=== PATIENT | male | born 1940 | race Caucasian/White ===

== ENCOUNTER 2022-05-27 02:16 | Inpatient (IN) ==
--- NOTE | 2022-05-27 02:37 | Emergency Department Note ---
Fall HPI General Chief Complaint: Fall Stated Complaint: FALL Time Seen by Provider: 05/27/22 02:18 Source: patient and EMS Mode of arrival: EMS Limitations: other (dementia) History of Present Illness HPI Narrative: Narrative: Patient arrives to ED via EMS after being found down by assisted living staff. Patient does not know what happened he has a history of dementia and does not really provide much information other than stating that he has pain in his back and hip. Does not know if he hit his head. It was an unwitnessed fall. Nursing staff told EMS that patient has not had any fevers, chills diarrhea, vomiting. No other information at this time was able to be obtained from the patient. Related Data Home Medications Medication Instructions Recorded Confirmed lorazepam 0.5 mg tablet 0.5 mg PO TID 05/11/22 05/11/22 meloxicam 15 mg tablet 15 mg PO QDAY 05/11/22 05/11/22 prazosin 1 mg capsule 1 mg PO QHS 05/11/22 05/11/22 sertraline 100 mg tablet 150 mg PO QAM 05/11/22 sm dry eye relief 05/11/22 Previous Rx's Medication Instructions Recorded 4 post cane #1 ea 07/14/16 FWW with seat #1 ea 11/20/18 Handicap Placard #1 ea 06/19/19 artificial tears(hypromellose) 0.3 1 drp ophthalmic (eye) QID PRN dry 04/08/20 % eye drops eyes #30 mL [id number] acid 0.4 See Rx Instructions .Route 06/15/20 mg-lycopene 300 mcg-lutein 250 mcg .COMPLEX #31 tabs tablet (CertaVite Senior) amlodipine 10 mg tablet See Rx Instructions .Route 03/22/21 .COMPLEX #90 tabs divalproex 500 mg tablet,extended 500 mg PO QPM #90 tabs 03/22/21 release 24 hr ferrous sulfate 325 mg (65 mg 325 mg PO QDAY #90 tabs 03/22/21 iron) tablet memantine 5 mg tablet 5 mg PO BID #180 tabs 03/22/21 omeprazole 20 mg capsule,delayed 20 mg PO QAM #90 caps 03/22/21 release phenytoin sodium extended 100 mg See Dose Instructions .Route 03/22/21 capsule .COMPLEX #270 caps ziprasidone HCl 20 mg capsule 20 mg PO BID Dementia/anxiety #180 03/22/21 caps levothyroxine 25 mcg tablet 25 mcg PO QDAY #90 tabs 10/18/21 acetaminophen 325 mg tablet 325 mg PO BID PRN pain #60 tabs 11/30/21 artificial tears(hypromellose) 0.5 2 drp ophthalmic (eye) QID dry 04/06/22 % eye drops eyes #30 mL meloxicam 15 mg tablet 15 mg PO QAM #90 tabs 04/06/22 lorazepam 0.5 mg tablet 0.5 mg PO TID PRN agitation #90 05/09/22 tabs olopatadine 0.1 % eye drops 2 drp ophthalmic (eye) BID #5 mL 05/18/22 Allergies Allergy/AdvReac Type Severity Reaction Status Date / Time No Known Drug Allergies Allergy Verified 05/11/22 13:31 Review of Systems ROS ROS Narrative: Narrative: All systems ED: reviewed and negative except as stated. [facility] Narrative Patient History Narrative: Narrative: Medical/Surgical/Family History All Active Problems (Updated 05/27/22 @ 06:44 by Kirby Ramirez DO) Epilepsy (Chronic) Hyperlipidemia (Chronic) Hypertension, essential (Chronic) Profound developmental delay (Chronic) Balance problems (Acute) Dysphagia (Chronic) Urinary tract infection (Acute) Knee sprain (Acute) Constipation (Acute) Intellectual disability (Acute) Cognitive decline (Acute) Alzheimer's dementia with behavioral disturbance (Acute) Fall from ground level (Acute) Laceration (Acute) Conjunctivitis (Acute) Medicare annual wellness visit, subsequent (Acute) Dizziness (Acute) Grief (Acute) Anxiety (Acute) Chest pain (Acute) Grief reaction with prolonged bereavement (Acute) Alzheimer disease (Acute) Dementia (Acute) Irritation of both eyes (Acute) Suicidal ideation (Acute) Acute urinary retention (Acute) History of dementia (Acute) Fracture of hip, left, closed (Acute) Acute urinary retention (Acute) Medical History (Updated 05/27/22 @ 06:44 by Kirby Ramirez DO) Alzheimer disease Chest pain Dysphagia Epilepsy 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 Lund Family History Father Cardiac disease Social History Smoking Status: Never smoker Alcohol Intake Frequency: does not drink Substance Use: does not use Exam Narrative Narrative: Narrative: General Limitations: other (dementia) General appearance: Present alert Head Head: Present atraumatic and normocephalic Eye Eye: Present PERRL and EOMI Neck Neck: Present full ROM; Absent tenderness Chest Chest: Present normal inspection; Absent tenderness Respiratory Respiratory: Present normal lung sounds bilaterally; Absent respiratory distress Cardiovascular Cardiovascular: Present regular rate and normal rhythm Adbominal Abdominal: Present soft; Absent tenderness Extremities Extremities: Present normal capillary refill Expanded Lower Extremity Hip/Pelvis: Present tenderness; Absent full ROM Back Back: Present L-S tenderness Skin Skin: Present warm (WNL) and intact Course Course Course Narrative: Patient was evaluated status post fall after being found down. CT of the head and cervical spine 10 with image reviewed on self no acute findings. CT lumbar spine obtained with image reviewed myself with no acute findings. CT of the pelvis obtained shows a left hip fracture. Case was discussed with orthopedic surgeon who recommend the patient be admitted to the hospitalist service and discussed and should be have with patient's family about surgery versus hospice care as patient does have advanced dementia. Unfortunate we do not have any hospital beds at our facility. Case discussed with hospitalist at [facility] and they have refused to accept patient without having any information from family to determine whether or not they want surgery versus hospice. Inpatient hospice and he can just be discharged back to facility on hospice rather than be transferred over. We have not been able to get a hold of family through the night. On CT which showed that patient has severely distended bladder. Scan of the bladder showed that patient had greater than 1500 mils of urine. Winslow catheter was placed and over 2000 mL of urine was evacuated. Winslow catheter was anchored. UA was unremarkable. Labs show that patient did have leukocytosis but no source of infection identified. Chest x-ray was unremarkable. Patient will be signed out to Dr. Rodriguez to we are able to contact family to determine disposition Consultations Consultation #1: Discussed with orthopedic surgeon, Dr. Castillo, who recommend the patient be admitted to the hospital service. He feels that patient would probably best served by going on hospice but this will have to be a decision made by the family and discussion with hospitalist. Time: 05:01 Consultation #2: Case discussed with hospitalist over at [facility] who has refused transfer until family can be contacted to determine plan of care. He feels that if [facility] is going hospice and there is no need to transfer patient to their facility. Time: 06:35 Vital Signs Vital signs: Vital Signs Temperature 98.2 F 05/27/22 02:17 Pulse Rate 81 05/27/22 02:17 Respiratory Rate 20 05/27/22 02:17 Blood Pressure 172/76 05/27/22 02:17 Pulse Oximetry (%) 100 05/27/22 02:17 Oxygen Delivery Method 05/27/22 02:17 Temperature 98.2 F 05/27/22 02:17 Pulse Rate 70 05/27/22 06:01 Respiratory Rate 20 05/27/22 02:17 Blood Pressure 157/76 05/27/22 06:01 Pulse Oximetry (%) 90 05/27/22 06:01 Oxygen Delivery Method 05/27/22 02:17 MDM MDM Narrative Medical decision making narrative: Narrative: Differential Diagnosis Differential Diagnosis: fall, hip fx, lumbar pain Medical Records Medical records reviewed: Yes I reviewed the patient's medical records. Lab Data Lab results reviewed: Yes I reviewed the patient's lab results. Result diagrams: 05/27/22 02:46 Labs: Lab Results 05/27/22 05/27/22 Range/Units 02:46 04:00 WBC 16.3 H (4.5-11.0) K/mcL RBC 3.62 L (4.63-6.08) M/mcL Hgb 11.1 L (13.7-17.5) g/dL Hct 33.0 L (40.1-51.0) % POC Hct 32.0 L (41-55) MCV 91.2 (80.0-100.0) fL MCH 30.7 (26.0-34.0) pg MCHC 33.6 (31.0-36.0) g/dL RDW 12.6 (11.5-14.5) % Plt Count 176 (140-440) K/mcL MPV 10.3 (8.8-12.5) fL Immature Gran % (Auto) 0.5 (0.0-0.5) % Neut % (Auto) 87.7 H (38.0-78.0) % Lymph % (Auto) 3.3 L (15.5-49.0) % [place] % (Auto) 8.2 (1.0-12.0) % Eos % (Auto) 0.1 (0.0-7.0) % Baso % (Auto) 0.2 (0.0-2.0) % Lymph # (Auto) 0.53 L (1.50-4.80) K/mcL [place] # (Auto) 1.34 H (0.10-0.90) K/mcL Eos # (Auto) 0.01 (0.00-0.70) K/mcL Baso # (Auto) 0.03 (0.00-0.30) K/mcL Immature Gran # 0.08 H (0.00-0.05) K/mcl Absolute Neutrophils 14.28 H (1.80-8.00) K/mcL POC Sodium 141 (133-145) POC Potassium 3.3 (3.3-5.1) POC Chloride 105 (96-108) POC Total CO2 24.0 (22-30) POC BUN 21 H (6-20) POC Creatinine 1.0 (0.6-1.2) POC Glucose 130 H (70-105) POC WB Ioniz Calcium 1.09 L (1.16-1.32) Radiology Data Radiology results reviewed: Yes I reviewed the patient's radiology results. Radiology results narrative: CT of the head and cervical spine obtained with image reviewed myself, I agree with radiologist interpretation CT lumbar spine obtained with image reviewed myself, agree with radiologist interpretation CT of the pelvis obtained with image reviewed myself, agree with radiologist interpretation Core Measures AMI Core Measures Followed: Yes Discharge Plan Patient/Caregiver Discharge Instructions Pt seen by STOCK PITCHER/PA only: No Clinical Impression: Fracture of hip, left, closed, Acute urinary retention Patient Disposition: Still a Patient Condition: Undetermined Follow up with: Daniel Hartman PA-C [Primary Care Provider] - Prescriptions: No Action [id number]-lutein [CertaVite Senior] 0.4-300-250 mg-mcg-mcg tablet See Rx Instructions .ROUTE .COMPLEX Qty: 31 11RF Dose Instruction: TAKE 1 TABLET BY MOUTH DAILY (8AM) Rx Instructions: TAKE 1 TABLET BY MOUTH DAILY (8AM) omeprazole 20 mg capsule,delayed release(DR/EC) 20 mg PO QAM Qty: 90 3RF amlodipine 10 mg tablet See Rx Instructions .ROUTE .COMPLEX Qty: 90 3RF Dose Instruction: TAKE 1 TABLET BY MOUTH DAILY IN THE MORNING (8AM) Rx Instructions: TAKE 1 TABLET BY MOUTH DAILY IN THE MORNING (8AM) divalproex 500 mg tablet extended release 24 hr 500 mg PO QPM Qty: 90 3RF ferrous sulfate 325 mg (65 mg iron) tablet 325 mg PO QDAY Qty: 90 3RF memantine 5 mg tablet 5 mg PO BID Qty: 180 3RF phenytoin sodium extended 100 mg capsule See Dose Instructions .ROUTE .COMPLEX Qty: 270 3RF Dose Instruction: Take 100mg in the morning and 200mg at bedtime Rx Instructions: Take 100mg in the morning and 200mg at bedtime ziprasidone HCl 20 mg capsule 20 mg PO BID Qty: 180 3RF Rx Instructions: give with food (meal/snack) levothyroxine 25 mcg tablet 25 mcg PO QDAY Qty: 90 3RF acetaminophen 325 mg tablet 325 mg PO BID PRN (Reason: pain) Qty: 60 4RF meloxicam 15 mg tablet 15 mg PO QAM Qty: 90 1RF artificial tears(hypromellose) 0.5 % drops 2 drp OPHTHALMIC QID Qty: 30 4RF lorazepam 0.5 mg tablet 0.5 mg PO TID PRN (Reason: agitation) Qty: 90 0RF olopatadine 0.1 % drops 2 drp ophthalmic (eye) BID Qty: 5 5RF Rx Instructions: Instill 2 drops in affected eye twice daily (DME) 4 post cane Qty: 1 0RF Rx Instructions: Use as needed dialy (DME) FWW with seat Qty: 1 0RF Dose Instruction: As directed Rx Instructions: As directed artificial tears(hypromellose) 0.3 % drops 1 drp OPHTHALMIC QID PRN (Reason: dry eyes) Qty: 30 1RF Hold Instructions: Doctor's Order (DME) Handicap Placard Qty: 1 0RF Rx Instructions: As directed meloxicam 15 mg tablet 15 mg PO QDAY prazosin 1 mg capsule 1 mg PO QHS sertraline 100 mg tablet 150 mg PO QAM (DME) sm dry eye relief See Rx Instructions .ROUTE .MEDSUPPLY Rx Instructions: instill 2 drops into the ey four times daily. lorazepam 0.5 mg tablet 0.5 mg PO TID
[2022-05-27 03:09] LABS: Basophils # (Auto) 0.03 K/mcL (0.00-0.30); Basophils % (Auto) 0.2 % (0.0-2.0); Eosinophils # (Auto) 0.01 K/mcL (0.00-0.70); Eosinophils % (Auto) 0.1 % (0.0-7.0); Hemoglobin 11.1 g/dL (13.7-17.5); Lymphocytes # (Auto) 0.53 K/mcL (1.50-4.80); Lymphocytes % (Auto) 3.3 % (15.5-49.0); Mean Cell Volume 91.2 fL (80.0-100.0); Mean Corpuscular HGB Conc 33.6 g/dL (31.0-36.0); Mean Platelet Volume 10.3 fL (8.8-12.5); Monocytes # (Auto) 1.34 K/mcL (0.10-0.90); Monocytes % (Auto) 8.2 % (1.0-12.0); Neutrophils % (Auto) 87.7 % (38.0-78.0); Platelet Count 176 K/mcL (140-440); RBC 3.62 M/mcL (4.63-6.08); Red Cell Distribution Width 12.6 % (11.5-14.5); WBC 16.3 K/mcL (4.5-11.0)
[2022-05-27] MEDS ORDERED: morphine 2 MG/ML VIAL IV ONE (03:33)
--- NOTE | 2022-05-27 03:36 | XRay Report ---
CLINICAL INFORMATION: Trauma COMPARISON: 04/05/2022. TECHNIQUE: Portable FINDINGS: The heart size, mediastinum and pulmonary vessels are unremarkable. The lungs are clear. There are no effusions. The bones and soft tissues are within normal limits. IMPRESSION: Normal chest. Interpreted and Authenticated by: Arpan Lamas 05/27/22
--- NOTE | 2022-05-27 03:36 | Cat Scan Report ---
CLINICAL INFORMATION: Trauma-fall COMPARISON: 04/05/2022 TECHNIQUE: 2.5 mm helical slices were obtained in the skull base to vertex. Following reconstruction, axial reformatted images were reviewed at bone and parenchymal windows. The exam was performed using radiation dose optimization techniques including, but not limited to, automated exposure control, adjustment of the mA and/or kV according to patient size and use of iterative reconstruction technique. FINDINGS: The ventricles, sulci, fissures, and cisterns are enlarged compatible moderate age-related atrophy. There is asymmetric atrophy of the cerebellum with congenital enlargement of the cisterna magna No extra-axial fluid collections are identified. Mild patchy chronic ischemic changes, in the deep cerebral white matter, are expected for age. There is no hemorrhage, mass effect, or edema. Bone windows show no osseous abnormality. IMPRESSION: Moderate cerebral atrophy with moderate/severe cerebellar atrophy-stable. Chronic ischemic changes are age-related also stable. No hemorrhage or other acute posttraumatic change Interpreted and Authenticated by: Arpan Lamas 05/27/22
--- NOTE | 2022-05-27 03:42 | Cat Scan Report ---
CLINICAL INFORMATION: Trauma-fall COMPARISON: None. TECHNIQUE: 0.625 mm helical slices were obtained from the skull base through the superior T2 end plate. Following reconstruction, 2.5 mm sagittal, coronal and axial reformations , with and without disc space angling, were processed. The exam was reviewed at bone and soft tissue windows. The exam was performed using radiation dose optimization techniques including, but not limited to, automated exposure control, adjustment of the mA and/or kV according to patient size and use of iterative reconstruction technique. FINDINGS: Sagittal and coronal reformatted images show the cervical spine is anatomically aligned. There is no fracture or other osseous abnormality. The cervical cord is normal in contour and caliber without focal lesion. 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 There is bilateral TMJ anterior subluxation with severe degeneration At C2-3 mild broad disc spur complex left-sided asymmetry results in mild left IV foraminal narrowing At C3-4 mild broad disc spur complex and facet arthropathy result in mild central canal severe right and mild left IV foraminal narrowing At C4-5 mild broad disc spur complex results in mild bilateral IV foraminal narrowing At C5-6 moderate broad disc spur complex results in moderate left and severe right IV foraminal mild central canal narrowing At C6-7 mild broad disc spur complex results in mild central canal and left IV foraminal narrowing. C7-T1 disc level is normal. IMPRESSION: 1. No fracture or other posttraumatic change. 2. Multilevel degeneration resulting in IV foraminal narrowing. 3. 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 Interpreted and Authenticated by: Arpan Lamas 05/27/22
--- NOTE | 2022-05-27 04:00 | Cat Scan Report ---
CLINICAL INFORMATION: Trauma-fall COMPARISON: None. TECHNIQUE: 0.625 mm helical slices were obtained from the mid L4 through the subtrochanteric regions. Following reconstruction, 2.5 mm sagittal, coronal and axial reformations were processed. The exam was reviewed in bone and soft tissue windows. The exam was performed using radiation dose optimization techniques including, but not limited to, automated exposure control, adjustment of mA and/or kV according to patient size and use of iterative reconstruction technique. FINDINGS: Oblique subcapital fracture of the left hip shows 12 mm of superior displacement femoral neck with respect to the femoral head. There is mild resorption about the fracture lines may be subacute. MALUNIFIED old fracture of the left inferior pubic ramus shows mild deformity. A 3 cm exostosis projecting the posterior ilium is noted in both SI joints are normal in width and alignment without significant degeneration or other arthritic change. There is mild degeneration of both SI joints. Prostate is markedly enlarged with diameter 6 cm. Bladder is massively distended with wall thickening, trabeculations and scattered diverticuli. Chronic bladder outlet obstruction has resulted in severe bilateral hydroureter/hydronephrosis. Visualized small and large bowel are unremarkable. Lateral pericecal appendix is normal. There is no free air, free fluid or adenopathy. Muscle and fascial planes are unremarkable. IMPRESSION: 1. Mildly displaced oblique subcapital fracture of the left hip. This may be subacute. 2. Marked prostate enlargement resulting massive urinary bladder distention and bilateral hydronephrosis/hydroureter. Patient will likely require catheterization. 3. 3 cm exostosis projecting from the posterior right ilium. Interpreted and Authenticated by: Arpan Lamas 05/27/22
[2022-05-27] MEDS ORDERED: KETOROLAC 30 MG/ML VIAL IV ONE (04:01)
[2022-05-27 04:04] LABS: POC Calcium, Ionized 1.09 (1.16-1.32); POC Potassium 3.3 (3.3-5.1)
--- NOTE | 2022-05-27 04:08 | Cat Scan Report ---
CLINICAL INFORMATION: Trauma fall COMPARISON: None. TECHNIQUE: 0.625 mm helical slices were obtained from the mid T12 through mid S2 vertebral bodies. Following reconstruction, 2.5 mm coronal, sagittal, and axial reformations (angle to the disc spaces) were processed. Exam was reviewed at bone and soft tissue windows.The exam was performed using radiation dose optimization techniques including, but not limited to, automated exposure control, adjustment of the mA and/or kV according to patient size and use of iterative reconstruction technique. FINDINGS: The lumbar spine is normal in curvature and alignment. Moderate L1 compression fracture features 10% loss of vertebral height. No extension of posterior elements,thus it appears to be stable. Chronicity unknown. Minimal L2 compression fracture is of indeterminate chronicity. No other osseous abnormalities. The region of the conus medullaris and cauda equina roots are normal. Marked prostatic enlargement (6 cm diameter) with massive distention of urinary bladder with wall thickening and severe bilateral hydronephrosis/hydroureter appreciated. The T11-T12, and T12-L1 disc levels are normal. At L1-2 mild broad disc protrusion mildly impinges the thecal sac At L2-3 mild broad disc protrusion left-sided asymmetry appreciated. At L3-4 mild broad disc protrusion left-sided asymmetry results in mild bilateral IV foraminal narrowing At L4-5, mild broad disc protrusion with left-sided asymmetry facet arthropathy result in mild central canal, moderate bilateral lateral recesses and IV foraminal narrowing. There is slight impingement of the exiting L4 and descending L5 nerve roots At L5-S1 mild broad disc protrusion noted IMPRESSION: 1. Moderate L1 and mild L2 compression fractures are more likely chronic than acute. There is stable. 2. Mild multilevel degeneration 3. Marked prostate enlargement with massive urinary bladder distention and bilateral hydroureter/hydronephrosis. Interpreted and Authenticated by: Arpan Lamas 05/27/22
[2022-05-27] MEDS ORDERED: LORazepam 2 MG/ML VIAL IV ONE ×2 (04:14→09:32)
[2022-05-27] MEDS ORDERED: LORazepam 2 MG/ML VIAL ONE (04:34)
[2022-05-27] MEDS ORDERED: HYDROmorphone 1 MG/ML SYRINGE IV ONE (09:32)
--- NOTE | 2022-05-27 09:50 | XRay Report ---
CLINICAL INFORMATION: Trauma left hip pain COMPARISON: None. FINDINGS: Mildly displaced oblique subcapital fracture left hip appreciated. No angulation deformity. Both hip and SI joints normal in width and alignment without arthritic change. Soft tissues over the fracture site. IMPRESSION: Mildly displaced oblique subcapital fracture left hip Interpreted and Authenticated by: Arpan Lamas 05/27/22
--- NOTE | 2022-05-27 10:34 | Emergency Department Note ---
HPI General Chief complaint: Fall Stated complaint: FALL Time Seen by Provider: 05/27/22 02:18 Source: patient and EMS Mode of arrival: EMS Limitations: other (dementia) History of Present Illness HPI Narrative: Narrative: Related Data Home Medications Medication Instructions Recorded Confirmed lorazepam 0.5 mg tablet 0.5 mg PO TID 05/11/22 05/11/22 meloxicam 15 mg tablet 15 mg PO QDAY 05/11/22 05/11/22 prazosin 1 mg capsule 1 mg PO QHS 05/11/22 05/11/22 sertraline 100 mg tablet 150 mg PO QAM 05/11/22 sm dry eye relief 05/11/22 Previous Rx's Medication Instructions Recorded 4 post cane #1 ea 07/14/16 FWW with seat #1 ea 11/20/18 Handicap Placard #1 ea 06/19/19 artificial tears(hypromellose) 0.3 1 drp ophthalmic (eye) QID PRN dry 04/08/ % eye drops eyes #30 mL cwnyaxke-bdk-xbbpl acid 0.4 See Rx Instructions .Route 06/15/20 mg-lycopene 300 mcg-lutein 250 mcg .COMPLEX #31 tabs tablet (CertaVite Senior) amlodipine 10 mg tablet See Rx Instructions .Route 03/22/21 .COMPLEX #90 tabs divalproex 500 mg tablet,extended 500 mg PO QPM #90 tabs 03/22/21 release 24 hr ferrous sulfate 325 mg (65 mg 325 mg PO QDAY #90 tabs 03/22/21 iron) tablet memantine 5 mg tablet 5 mg PO BID #180 tabs 03/22/21 omeprazole 20 mg capsule,delayed 20 mg PO QAM #90 caps 03/22/21 release phenytoin sodium extended 100 mg See Dose Instructions .Route 03/22/21 capsule .COMPLEX #270 caps ziprasidone HCl 20 mg capsule 20 mg PO BID Dementia/anxiety #180 03/22/21 caps levothyroxine 25 mcg tablet 25 mcg PO QDAY #90 tabs 10/18/21 acetaminophen 325 mg tablet 325 mg PO BID PRN pain #60 tabs 11/30/21 artificial tears(hypromellose) 0.5 2 drp ophthalmic (eye) QID dry 04/06/22 % eye drops eyes #30 mL meloxicam 15 mg tablet 15 mg PO QAM #90 tabs 04/06/22 lorazepam 0.5 mg tablet 0.5 mg PO TID PRN agitation #90 05/09/22 tabs olopatadine 0.1 % eye drops 2 drp ophthalmic (eye) BID #5 mL 05/18/22 Allergies Allergy/AdvReac Type Severity Reaction Status Date / Time No Known Drug Allergies Allergy Verified 05/11/22 13:31 Review of Systems ROS ROS Narrative: Narrative: PFSH Narrative Patient History Narrative: Narrative: Medical/Surgical/Family History All Active Problems (Updated 05/27/22 @ 06:44 by Kirby Ramirez DO) Epilepsy (Chronic) Hyperlipidemia (Chronic) Hypertension, essential (Chronic) Profound developmental delay (Chronic) Balance problems (Acute) Dysphagia (Chronic) Urinary tract infection (Acute) Knee sprain (Acute) Constipation (Acute) Intellectual disability (Acute) Cognitive decline (Acute) Alzheimer's dementia with behavioral disturbance (Acute) Fall from ground level (Acute) Laceration (Acute) Conjunctivitis (Acute) Medicare annual wellness visit, subsequent (Acute) Dizziness (Acute) Grief (Acute) Anxiety (Acute) Chest pain (Acute) Grief reaction with prolonged bereavement (Acute) Alzheimer disease (Acute) Dementia (Acute) Irritation of both eyes (Acute) Suicidal ideation (Acute) Acute urinary retention (Acute) History of dementia (Acute) Fracture of hip, left, closed (Acute) Acute urinary retention (Acute) Medical History (Updated 05/27/22 @ 06:44 by Kirby Ramirez DO) Alzheimer disease Chest pain Dysphagia Epilepsy 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 Lund Family History Father Cardiac disease Social History Smoking Status: Never smoker Alcohol Intake Frequency: does not drink Substance Use: does not use Exam Narrative Narrative: Narrative: General Limitations: other (dementia) Course Vital Signs Vital signs: Vital Signs Temperature 98.2 F 11/18/22 02:17 Pulse Rate 81 05/27/22 02:17 Respiratory Rate 20 05/27/22 02:17 Blood Pressure 172/76 05/27/22 02:17 Pulse Oximetry (%) 100 05/27/22 02:17 Oxygen Delivery Method 05/27/22 02:17 Temperature 98.2 F 05/27/22 02:17 Pulse Rate 80 05/27/22 10:03 Respiratory Rate 20 05/27/22 02:17 Blood Pressure 170/83 05/27/22 10:00 Pulse Oximetry (%) 93 05/27/22 10:03 Oxygen Delivery Method 05/27/22 10:03 Oxygen Flow Rate (L/min) 2 05/27/22 10:03 MDM MDM Narrative Medical decision making narrative: Narrative: Patient signed out to me pending speaking with family. We are finally able to speak with the POA who is the Sister Barbara. I did have long conversation with patient's sister about what would be the best plans of care whether patient would go home on hospice and comfort care versus going ahead with surgery even though this is a very extensive surgery and a very extensive rehab process. She says she want speak with family after speaking to family she said that he would want to have surgery and try to have a normal life. With that I then notify Dr. Castillo who is can take the patient to surgery today. I then spoke with Dr. Cyr the hospitalist who has agreed to admit the patient. Patient is admitted in fair condition. He did receive a dose of Dilaudid and Ativan to help with anxiety and pain which did seem to help. Lab Data Result diagrams: 05/27/22 02:46 05/27/22 10:25 Labs: Lab Results 05/27/22 05/27/22 Range/Units 02:46 04:00 WBC 16.3 H (4.5-11.0) K/mcL RBC 3.62 L (4.63-6.08) M/mcL Hgb 11.1 L (13.7-17.5) g/dL Hct 33.0 L (40.1-51.0) % POC Hct 32.0 L (41-55) MCV 91.2 (80.0-100.0) fL MCH 30.7 (26.0-34.0) pg MCHC 33.6 (31.0-36.0) g/dL RDW 12.6 (11.5-14.5) % Plt Count 176 (140-440) K/mcL MPV 10.3 (8.8-12.5) fL Immature Gran % (Auto) 0.5 (0.0-0.5) % Neut % (Auto) 87.7 H (38.0-78.0) % Lymph % (Auto) 3.3 L (15.5-49.0) % [place] % (Auto) 8.2 (1.0-12.0) % Eos % (Auto) 0.1 (0.0-7.0) % Baso % (Auto) 0.2 (0.0-2.0) % Lymph # (Auto) 0.53 L (1.50-4.80) K/mcL [place] # (Auto) 1.34 H (0.10-0.90) K/mcL Eos # (Auto) 0.01 (0.00-0.70) K/mcL Baso # (Auto) 0.03 (0.00-0.30) K/mcL Immature Gran # 0.08 H (0.00-0.05) K/mcl Absolute Neutrophils 14.28 H (1.80-8.00) K/mcL POC Sodium 141 (133-145) POC Potassium 3.3 (3.3-5.1) POC Chloride 105 (96-108) POC Total CO2 24.0 (22-30) POC BUN 21 H (6-20) POC Creatinine 1.0 (0.6-1.2) POC Glucose 130 H (70-105) POC WB Ioniz Calcium 1.09 L (1.16-1.32) Discharge Plan Patient/Caregiver Discharge Instructions Pt seen by [employer]TE[employer]ET[employer] SPECIALIST/PA only: No Clinical Impression: Fracture of hip, left, closed, Acute urinary retention Patient Disposition: Xfer As Inpt ([facility]) Condition: Fair Follow up with: Daniel Hartman PA-C [Primary Care Provider] - Prescriptions: No Action zorhjaqa-czp-PD-lycopen-lutein [CertaVite Senior] 0.4-300-250 mg-mcg-mcg tablet See Rx Instructions .ROUTE .COMPLEX Qty: 31 11RF Dose Instruction: TAKE 1 TABLET BY MOUTH DAILY (8AM) Rx Instructions: TAKE 1 TABLET BY MOUTH DAILY (8AM) omeprazole 20 mg capsule,delayed release(DR/EC) 20 mg PO QAM Qty: 90 3RF amlodipine 10 mg tablet See Rx Instructions .ROUTE .COMPLEX Qty: 90 3RF Dose Instruction: TAKE 1 TABLET BY MOUTH DAILY IN THE MORNING (8AM) Rx Instructions: TAKE 1 TABLET BY MOUTH DAILY IN THE MORNING (8AM) divalproex 500 mg tablet extended release 24 hr 500 mg PO QPM Qty: 90 3RF ferrous sulfate 325 mg (65 mg iron) tablet 325 mg PO QDAY Qty: 90 3RF memantine 5 mg tablet 5 mg PO BID Qty: 180 3RF phenytoin sodium extended 100 mg capsule See Dose Instructions .ROUTE .COMPLEX Qty: 270 3RF Dose Instruction: Take 100mg in the morning and 200mg at bedtime Rx Instructions: Take 100mg in the morning and 200mg at bedtime ziprasidone HCl 20 mg capsule 20 mg PO BID Qty: 180 3RF Rx Instructions: give with food (meal/snack) levothyroxine 25 mcg tablet 25 mcg PO QDAY Qty: 90 3RF acetaminophen 325 mg tablet 325 mg PO BID PRN (Reason: pain) Qty: 60 4RF meloxicam 15 mg tablet 15 mg PO QAM Qty: 90 1RF artificial tears(hypromellose) 0.5 % drops 2 drp OPHTHALMIC QID Qty: 30 4RF lorazepam 0.5 mg tablet 0.5 mg PO TID PRN (Reason: agitation) Qty: 90 0RF olopatadine 0.1 % drops 2 drp ophthalmic (eye) BID Qty: 5 5RF Rx Instructions: Instill 2 drops in affected eye twice daily (DME) 4 post cane Qty: 1 0RF Rx Instructions: Use as needed dialy (DME) FWW with seat Qty: 1 0RF Dose Instruction: As directed Rx Instructions: As directed artificial tears(hypromellose) 0.3 % drops 1 drp OPHTHALMIC QID PRN (Reason: dry eyes) Qty: 30 1RF Hold Instructions: Doctor's Order (DME) Handicap Placard Qty: 1 0RF Rx Instructions: As directed meloxicam 15 mg tablet 15 mg PO QDAY prazosin 1 mg capsule 1 mg PO QHS sertraline 100 mg tablet 150 mg PO QAM (DME) sm dry eye relief See Rx Instructions .ROUTE .MEDSUPPLY Rx Instructions: instill 2 drops into the ey four times daily. lorazepam 0.5 mg tablet 0.5 mg PO TID
[2022-05-27 11:08] LABS: INR 1.1 (0.9-1.1); Prothrombin Time 14.2 sec (11.9-14.5)
--- NOTE | 2022-05-27 11:09 | Internal Med History&Physical ---
HPI History of Present Illness Patient information: Note initiated : 05/27/22 at 10:57 am Service Date, if different from initiated Date: [] Patient: Guilherme Yepez 81 y/o M admitted on for FALL. Chief Complaint: [] History of present illness: Mr. Yepez is a 81-year-old male with a history of hypertension, hypothyroidism, seizure disorder, urinary retention and advanced dementia who lives in an assisted living facility and was brought into the emergency department for evaluation after being found down by the assisted living staff. Patient was unable to provide a history due to advanced dementia. The patient was found to have a left mildly displaced oblique subcapital fracture of the left hip as well as marked prostate enlargement resulting in massive urinary bladder distention and bilateral hydronephrosis and hydroureter. Orthopedic surgery was consulted, recommended surgical correction for the hip fracture. A Winslow catheter was placed in the emergency department. Hospital medicine was consulted for admission. I discussed the patient with his sister, Barbara, who decided that the patient's CODE STATUS would be DNR/DNI. Review of systems: Unable to obtain due to advanced dementia Physical exam Head: Atraumatic, normal inspection. Eyes: normal appearance, no scleral icterus. Neck: full ROM Respiratory: no respiratory distress. Cardiovascular: normal rate and rhythm, S1, S2. GI/Abdominal: soft, nontender, no guarding. Extremities: Left hip tenderness : Indwelling Winslow catheter Neurological: CN II-XII intact, intact motor, intact sensation. Psychiatric: Cognitive impairment Skin: warm, normal color PFSH PFSH All Active Problems (Updated 05/27/22 @ 06:44 by Kirby Ramirez DO) Epilepsy (Chronic) Hyperlipidemia (Chronic) Hypertension, essential (Chronic) Profound developmental delay (Chronic) Balance problems (Acute) Dysphagia (Chronic) Urinary tract infection (Acute) Knee sprain (Acute) Constipation (Acute) Intellectual disability (Acute) Cognitive decline (Acute) Alzheimer's dementia with behavioral disturbance (Acute) Fall from ground level (Acute) Laceration (Acute) Conjunctivitis (Acute) Medicare annual wellness visit, subsequent (Acute) Dizziness (Acute) Grief (Acute) Anxiety (Acute) Chest pain (Acute) Grief reaction with prolonged bereavement (Acute) Alzheimer disease (Acute) Dementia (Acute) Irritation of both eyes (Acute) Suicidal ideation (Acute) Acute urinary retention (Acute) History of dementia (Acute) Fracture of hip, left, closed (Acute) Acute urinary retention (Acute) Medical History (Updated 05/27/22 @ 06:44 by Kirby Ramirez DO) Alzheimer disease Chest pain Dysphagia Epilepsy 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 Lund Family History Father Cardiac disease Social History smoking status: Never smoker alcohol intake frequency: does not drink substance use type: does not use MEDS/ALLERGIES Home Medications and Allergies Home Medications Medication Instructions Recorded Confirmed Type 4 post cane #1 ea 07/14/16 05/11/22 Rx FWW with seat #1 ea 11/20/18 05/11/22 Rx Handicap Placard #1 ea 06/19/19 05/11/22 Rx artificial tears(hypromellose) 0.3 1 drp ophthalmic (eye) QID PRN dry 04/08/20 05/11/22 Rx % eye drops eyes #30 mL luoujoah-gdq-yijcp acid 0.4 See Rx Instructions .Route 06/15/20 05/11/22 Rx mg-lycopene 300 mcg-lutein 250 mcg .COMPLEX #31 tabs tablet (CertaVite Senior) amlodipine 10 mg tablet See Rx Instructions .Route 03/22/21 05/11/22 Rx .COMPLEX #90 tabs divalproex 500 mg tablet,extended 500 mg PO QPM #90 tabs 03/22/21 05/11/22 Rx release 24 hr ferrous sulfate 325 mg (65 mg 325 mg PO QDAY #90 tabs 03/22/21 05/11/22 Rx iron) tablet memantine 5 mg tablet 5 mg PO BID #180 tabs 03/22/21 05/11/22 Rx omeprazole 20 mg capsule,delayed 20 mg PO QAM #90 caps 03/22/21 05/11/22 Rx release phenytoin sodium extended 100 mg See Dose Instructions .Route 03/22/21 05/11/22 Rx capsule .COMPLEX #270 caps ziprasidone HCl 20 mg capsule 20 mg PO BID Dementia/anxiety #180 03/22/21 05/11/22 Rx caps levothyroxine 25 mcg tablet 25 mcg PO QDAY #90 tabs 10/18/21 05/11/22 Rx acetaminophen 325 mg tablet 325 mg PO BID PRN pain #60 tabs 11/30/21 05/11/22 Rx artificial tears(hypromellose) 0.5 2 drp ophthalmic (eye) QID dry 04/06/22 05/11/22 Rx % eye drops eyes #30 mL meloxicam 15 mg tablet 15 mg PO QAM #90 tabs 04/06/22 05/11/22 Rx lorazepam 0.5 mg tablet 0.5 mg PO TID PRN agitation #90 05/09/22 05/11/22 Rx tabs lorazepam 0.5 mg tablet 0.5 mg PO TID 05/11/22 05/11/22 History meloxicam 15 mg tablet 15 mg PO QDAY 05/11/22 05/11/22 History prazosin 1 mg capsule 1 mg PO QHS 05/11/22 05/11/22 History sertraline 100 mg tablet 150 mg PO QAM 05/11/22 History sm dry eye relief 05/11/22 History olopatadine 0.1 % eye drops 2 drp ophthalmic (eye) BID #5 mL 05/18/22 Rx Allergies Allergy/AdvReac Type Severity Reaction Status Date / Time No Known Drug Allergies Allergy Verified 05/11/22 13:31 EXAM Constitutional Vitals: Temp Pulse Resp BP Pulse Ox O2 Del Method O2 Flow Rate 98.2 F 74 20 155/81 93 2 05/27/22 02:17 05/27/22 10:48 05/27/22 02:17 05/27/22 10:30 05/27/22 10:48 05/27/22 10:48 05/27/22 10:48 DATA Data Completed and Pending Labs: Labs from last 24 hours 05/27/22 05/27/22 05/27/22 10:25 10:25 10:25 WBC Pending RBC Pending Hgb Pending Hct Pending POC Hct MCV Pending MCH Pending MCHC Pending RDW Pending Plt Count Pending MPV Pending Immature Gran % (Auto) Pending Neut % (Auto) Pending Lymph % (Auto) [place] % (Auto) Eos % (Auto) Baso % (Auto) Lymph # (Auto) [place] # (Auto) Eos # (Auto) Baso # (Auto) Immature Gran # Pending Absolute Neutrophils PT Pending INR Pending POC Sodium Sodium Pending POC Potassium Potassium Pending POC Chloride Chloride Pending Carbon Dioxide Pending POC Total CO2 Anion Gap Pending POC BUN BUN Pending Creatinine Pending POC Creatinine GFR Calculation Pending Glucose Pending POC Glucose Calcium Pending POC WB Ioniz Calcium Total Bilirubin Pending AST Pending ALT Pending Alkaline Phosphatase Pending Total Protein Pending Albumin Pending Globulin Pending Albumin/Globulin Ratio Pending 05/27/22 05/27/22 04:00 02:46 WBC 16.3 H RBC 3.62 L Hgb 11.1 L Hct 33.0 L POC Hct 32.0 L MCV 91.2 MCH 30.7 MCHC 33.6 RDW 12.6 Plt Count 176 MPV 10.3 Immature Gran % (Auto) 0.5 Neut % (Auto) 87.7 H Lymph % (Auto) 3.3 L [place] % (Auto) 8.2 Eos % (Auto) 0.1 Baso % (Auto) 0.2 Lymph # (Auto) 0.53 L [place] # (Auto) 1.34 H Eos # (Auto) 0.01 Baso # (Auto) 0.03 Immature Gran # 0.08 H Absolute Neutrophils 14.28 H PT INR POC Sodium 141 Sodium POC Potassium 3.3 Potassium POC Chloride 105 Chloride Carbon Dioxide POC Total CO2 24.0 Anion Gap POC BUN 21 H BUN Creatinine POC Creatinine 1.0 GFR Calculation Glucose POC Glucose 130 H Calcium POC WB Ioniz Calcium 1.09 L Total Bilirubin AST ALT Alkaline Phosphatase Total Protein Albumin Globulin Albumin/Globulin Ratio A/P Narrative A/P Narrative: Assessment: 81-year-old male with a history of hypertension, hypothyroidism, seizure disorder, urinary retention and advanced dementia who lives in an assisted living facility who was found to have a left subcapital femur fracture after an unwitnessed fall. #Left subcapital femur fracture #Hypertension #Seizure disorder #Hypothyroidism #Urinary retention complicated by bilateral hydronephrosis/hydroureter #Advanced dementia Plan -Admit to inpatient for surgical correction. -Analgesics -IV fluid while NPO. -Home medication reconciliation. -N.p.o. for surgery. -Orthopedic surgery consult. -PT consult. -DVT prophylaxis: Per orthopedic surgery preference. -CODE STATUS: DNR/DNI -Disposition: Probably SNF versus return to assisted living facility with home health. Consider hospice if the patient does not recover well after surgery. Time Spent With Patient Time: Total time spent is greater than 50% in coordination of care (as documented) at patient's floor/unit and/or counseling patient:
[2022-05-27 11:20] LABS: ALT/SGPT 10 U/L (<40); AST/SGOT 19 U/L (<40); Albumin 3.9 gm/dL (3.2-5.2); Albumin/Globulin Ratio 1.8 (1.0-2.3); Alkaline Phosphatase 70 U/L (39-117); Bilirubin,Total 0.5 mg/dL (0.1-1.0); Blood Urea Nitrogen 20 mg/dL (8-23); Calcium 8.8 mg/dL (8.6-10.4); Carbon Dioxide 25 mmol/L (22-30); Chloride 105 mmol/L (96-108); Globulin 2.2 gm/dL (2.2-3.7); Glomerular Filtration Rate 62; Glucose 109 mg/dL (70-105)
[2022-05-27] MEDS ORDERED: PROPOFOL 200 MG/20 ML VIAL IV ONE (12:12)
[2022-05-27] MEDS ORDERED: ePHEDrine 50 MG/5 ML SYRINGE (ANEST) IV ONE (12:12)
[2022-05-27] MEDS ORDERED: fentaNYL 100 MCG/2 ML VIAL IV ONE (12:12)
[2022-05-27] MEDS ORDERED: SUGAMMADEX SODIUM 200 MG/2 ML VIAL IV ONE (12:12)
[2022-05-27] MEDS ORDERED: LIDOCAINE HCL/PF 100 MG/5 ML SYRINGE IV ONE (12:12)
[2022-05-27] MEDS ORDERED: ONDANSETRON 4 MG/2 ML VIAL ONE (12:12)
[2022-05-27] MEDS ORDERED: KETAMINE 50 MG/ML Syringe (ANEST) IV ONE (12:12)
[2022-05-27] MEDS ORDERED: GLYCOPYRROLATE 0.2 MG/ML VIAL IV ONE (12:12)
[2022-05-27] MEDS ORDERED: MAGNESIUM SULFATE 2 GM/50 ML BAG IV ONE (12:12)
[2022-05-27] MEDS ORDERED: DEXAMETHASONE 10 MG/ML VIAL ONE (12:12)
[2022-05-27] MEDS ORDERED: ROCURONIUM 10 MG/ML ML IV ONE (12:12)
[2022-05-27] MEDS ORDERED: TRANEXAMIC ACID 1,000 MG/10 ML VIAL ONE (12:12)
[2022-05-27] MEDS ORDERED: ceFAZolin 2 GM in DEXTROSE 5% IN WATER 50 ML IV SCH ×2 (12:45→13:45)
[2022-05-27 13:06] LABS: Appearance,Urine CLEAR (Clear); Bilirubin,Urine NEGATIVE (Negative); Color,Urine LT. YELLOW; Culture Indicated,Urine No; Glucose,Urine (UA) NEGATIVE (Negative); Ketones,Urine NEGATIVE (Negative); Leukocyte Esterase,Urine NEGATIVE /uL (Negative); Mucus,Urine FEW /hpf; Nitrate,Urine NEGATIVE (Negative); PH,Urine 6.5 (5.0-9.0); Protein,Urine 30 mg/dL (Negative); Specific Gravity,Urine 1.015 (1.000-1.035); Urine Blood LARGE ery/mcL (Negative); Urine RBC 112 /hpf (0-3); Urine Squamous Epithelial Cell < 1 /hpf (0-4); Urine Transitional Epi Cells 2 /hpf (0-2); Urine WBC 6 /hpf (0-4); Urobilinogen,Urine Normal
--- NOTE | 2022-05-27 13:36 | Brief Operative Note ---
Brief Operative Note Date of procedure: 05/27/22 Pre-op diagnosis: Left displaced femoral neck fracture Post-op diagnosis: same Procedure: Open treatment left femoral neck fracture w prosthetic hemiarthroplasty Grafts/Implants: Yes ([place] Accolade 132 cemented size 5 stem, 0 neck, 50 unipolar head) Anesthesia: GETA Findings: subacute fracture, no hematoma Complications: none Surgeon: Chito Castillo Sales Assistant Displays: Lena Tovar Estimated blood loss (cc): 100 Specimens Removed/Pathology: none sent Condition: stable Disposition: PACU
[2022-05-27] MEDS ORDERED: BUPIVACAINE 0.5% 50 ML VIAL IJ ONE (14:00)
[2022-05-27] MEDS ORDERED: MEPERIDINE 50 MG/ML VIAL IM PRN ×2 (14:15→14:23)
[2022-05-27] MEDS ORDERED: fentaNYL 100 MCG/2 ML VIAL IV PRN (14:15)
[2022-05-27] MEDS ORDERED: HYDROmorphone 0.5 MG/0.5 ML SYRINGE IV PRN ×2 (14:15→14:23)
[2022-05-27] MEDS ORDERED: KETOROLAC 30 MG/ML VIAL IV PRN ×2 (14:15→14:23)
[2022-05-27] MEDS ORDERED: NALOXONE HCL 0.4 MG/ML VIAL IV PRN ×2 (14:15→14:23)
[2022-05-27] MEDS ORDERED: IPRATROPIUM/ALBUTEROL 3 ML AMPUL.NEB NEB PRN ×2 (14:15→14:23)
[2022-05-27] MEDS ORDERED: PROMETHAZINE 25 MG/ML VIAL IM PRN ×2 (14:15→14:23)
[2022-05-27] MEDS ORDERED: MEPERIDINE 25 MG/ML VIAL IV PRN ×2 (14:15→14:23)
[2022-05-27] MEDS ORDERED: LACTATED RINGERS 250 ML IV PRN ×2 (14:15→14:23)
[2022-05-27] MEDS ORDERED: ONDANSETRON 4 MG/2 ML VIAL IV PRN ×3 (14:15→16:01)
[2022-05-27] MEDS ORDERED: METOCLOPRAMIDE 10 MG/2 ML VIAL IV PRN ×2 (14:15→14:23)
[2022-05-27] MEDS ORDERED: ACETAMINOPHEN 1,000 MG/100 ML BAG IV ONE ×2 (14:15→14:23)
[2022-05-27] MEDS ORDERED: METOPROLOL TARTRATE 5 MG/5 ML VIAL IV PRN ×2 (14:15→14:23)
[2022-05-27] MEDS ORDERED: METHOCARBAMOL 1,000 MG/10 ML VIAL IV PRN ×2 (14:15→14:23)
[2022-05-27] MEDS ORDERED: LACTATED RINGERS 1,000 ML IV SCH ×2 (14:15→14:30)
[2022-05-27] MEDS ORDERED: morphine 2 MG/ML VIAL IV PRN ×2 (14:15→14:23)
[2022-05-27] MEDS ORDERED: PROMETHAZINE 25 MG/ML VIAL IV PRN ×2 (14:15→14:23)
[2022-05-27] MEDS: fentaNYL 100 MCG/2 ML VIAL IV PRN ×2 (14:55→14:58)
[2022-05-27] MEDS ORDERED: MELATONIN 3 MG TABLET PO SCH (16:01)
--- NOTE | 2022-05-27 16:16 | XRay Report ---
CLINICAL INFORMATION: Follow-up left subcapital fracture FINDINGS: The left hip prostheses is anatomically aligned. The right hip is normal. There are no osseous abnormalities. Soft tissue swelling over the surgical site-as expected. IMPRESSION: Left hip prostheses in anatomic alignment. Interpreted and Authenticated by: Arpan Lamas 05/27/22
[2022-05-27] MEDS: 0.9 % SODIUM CHLORIDE 1,000 ML IV SCH (16:37)
[2022-05-27] MEDS: 0.9 % SODIUM CHLORIDE 10 ML SYRINGE IV SCH ×2 (16:40→20:38)
[2022-05-27] MEDS: OLANZapine 10 MG VIAL IM PRN (17:34)
[2022-05-27] MEDS: ACETAMINOPHEN 1,000 MG/100 ML BAG IV SCH ×2 (17:42→23:30)
[2022-05-27] MEDS: HYDROmorphone 0.5 MG/0.5 ML SYRINGE IV PRN (18:00)
[2022-05-27] MEDS ORDERED: ceFAZolin 1 GM VIAL IV SCH (20:30)
[2022-05-27] MEDS: SENNOSIDES 1 TABLET PO SCH (20:38)
[2022-05-27] MEDS: DOCUSATE SODIUM 100 MG CAPSULE PO SCH (20:38)
[2022-05-28] MEDS: HYDROmorphone 0.5 MG/0.5 ML SYRINGE IV PRN ×5 (01:44→21:38)
[2022-05-28] MEDS: 0.9 % SODIUM CHLORIDE 1,000 ML IV SCH (03:50)
[2022-05-28] MEDS: 0.9 % SODIUM CHLORIDE 10 ML SYRINGE IV SCH ×3 (05:30→21:17)
[2022-05-28] MEDS: OLANZapine 10 MG VIAL IM PRN ×2 (06:46→16:11)
[2022-05-28] MEDS: ACETAMINOPHEN 1,000 MG/100 ML BAG IV SCH ×2 (07:37→15:18)
[2022-05-28] MEDS: DOCUSATE SODIUM 100 MG CAPSULE PO SCH ×3 (08:10→20:59)
--- NOTE | 2022-05-28 10:50 | Internal Med Progress Note ---
SUBJECTIVE Subjective Patient information: Note initiated : 05/28/22 at 10:49 am Service Date, if different from initiated Date: [] Patient: Guilherme Yepez 81 y/o M admitted on 05/27/22 for FALL. Chief Complaint: [] Interval history: Mr. Yepez is a 81-year-old male with a history of hypertension, hypothyroidism, seizure disorder, urinary retention and advanced dementia who lives in an assisted living facility and was brought into the emergency department for evaluation after being found down by the assisted living staff. Patient was unable to provide a history due to advanced dementia. The patient was found to have a left mildly displaced oblique subcapital fracture of the left hip as well as marked prostate enlargement resulting in massive urinary bladder distention and bilateral hydronephrosis and hydroureter. Orthopedic surgery was consulted, recommended surgical correction for the hip fracture. A Winslow catheter was placed in the emergency department. Hospital medicine was consulted for admission. I discussed the patient with his sister, Barbara, who decided that the patient's CODE STATUS would be DNR/DNI. 05/28 Patient had ORIF of the left hip fracture yesterday. Postoperatively the patient was severely agitated and not redirectable, the patient was given Zyprexa IM. This morning the patient is resting comfortably, continues with Winslow catheter. Urinalysis was not suggestive of UTI. Physical exam Head: Atraumatic, normal inspection. Eyes: normal appearance, no scleral icterus. Neck: full ROM Respiratory: no respiratory distress. Cardiovascular: normal rate and rhythm, S1, S2. GI/Abdominal: soft, nontender, no guarding. Extremities: Left hip covered with clean bandage. : Indwelling Winslow catheter Neurological: CN II-XII intact, intact motor, intact sensation. Psychiatric: Cognitive impairment Skin: warm, normal color Constitutional Vitals: Vital Signs Temp Pulse Resp BP Pulse Ox O2 Del Method O2 Flow Rate 98.4 F 83 14 173/69 93 2 05/28/22 07:38 05/28/22 07:38 05/28/22 08:01 05/28/22 07:38 05/28/22 08:01 05/28/22 08:01 05/28/22 08:01 Period Temp Pulse Resp BP Sys/Oliveros Pulse Ox O2 Del Method O2 Flow Rate Last 24 Hr 97.4 F-98.9 F 49-103 05-02 120-195/60-115 81-100 Nasal Cannula-Room Air 0.5-6 Intake and Output 05/27/22 05/28/22 05/28/22 19:59 03:59 11:59 Intake Total 950 941 100 Output Total 250 300 Balance 700 941 -200 Weight 66.678 kg Intake & Output: Intake & Output 05/27/22 05/28/22 05/28/22 19:59 03:59 11:59 Intake Total 950 941 100 Output Total 250 300 Balance 700 941 -200 Weight 66.678 kg Intake: IV 150 941 100 Sodium Chloride 0.9% 1,000 ml @ 841 75 mls/hr IV .[id number] [facility] Rx#: [id number] Ancef 2 gm In Dextrose 5% in 50 Water 50 ml @ 100 mls/hr IV PREOP [facility] Rx#:[id number] IV - Manual Only 800 Output: Urine Catheter Amount 150 300 Estimated Blood Loss 100 Other: Urine Appearance Clear Hematuria Uretheral (Winslow) Clear Hematuria Urine Color Bright Yellow Medium Red Uretheral (Winslow) Bright Yellow Medium Red Urine Odor Normal Normal Uretheral (Winslow) Normal Normal OBJ DATA Labs CBC & Chem 7: 05/27/22 10:25 05/27/22 10:25 Labs: Abnormal Lab Results 05/27/22 05/27/22 05/27/22 11:23 10:25 04:00 WBC RBC Hgb Hct POC Hct 32.0 L Neut % (Auto) Lymph % (Auto) Lymph # (Auto) Moore # (Auto) Immature Gran # Absolute Neutrophils POC BUN 21 H Glucose 109 H POC Glucose 130 H POC WB Ioniz Calcium 1.09 L Urine Protein 30 A Urine Occult Blood Large A Urine RBC 112 H Urine WBC 6 H Urine Mucus Few A 05/27/22 02:46 WBC 16.3 H RBC 3.62 L Hgb 11.1 L Hct 33.0 L POC Hct Neut % (Auto) 87.7 H Lymph % (Auto) 3.3 L Lymph # (Auto) 0.53 L Moore # (Auto) 1.34 H Immature Gran # 0.08 H Absolute Neutrophils 14.28 H POC BUN Glucose POC Glucose POC WB Ioniz Calcium Urine Protein Urine Occult Blood Urine RBC Urine WBC Urine Mucus Meds: Medications Hydrocodone Bitart/Acetaminophen (Hydrocodone/Apap 5/325mg Tablet) 1 tab PO Q4HP PRN; Protocol PRN Reason: Per Pain Protocol Docusate Sodium (Docusate Sodium 100 Mg Capsule) 100 mg PO BID [facility] Last Admin: 05/28/22 08:10 Dose: Not Given Hydromorphone HCl (Hydromorphone 0.5 Mg/0.5 Ml Syringe) 0.5 mg IV Q2HP PRN; Protocol PRN Reason: Per Pain Protocol Last Admin: 05/28/22 09:49 Dose: 0.5 mg Acetaminophen (Ofirmev) 1,000 mg in 100 mls @ 200 mls/hr IV Q8H [facility]; Protocol Last Infusion: 05/28/22 08:05 Dose: Infused Sodium Chloride (Sodium Chloride 0.9%) 1,000 mls @ 75 mls/hr IV .[id number] [facility] Last Admin: 05/28/22 03:50 Dose: 75 mls/hr Melatonin (Melatonin 3 Mg Tablet) 3 mg PO HSP [facility] Olanzapine (Olanzapine 10 Mg Vial) 5 mg IM Q6HP PRN PRN Reason: Severe agitation Last Admin: 05/28/22 06:46 Dose: 5 mg Ondansetron HCl (Ondansetron 4 Mg/2 Ml Vial) 4 mg IV Q6HP PRN PRN Reason: Nausea And Vomiting Senna (Sennosides 1 Tablet) 2 tab PO HS [facility] Last Admin: 05/27/22 20:38 Dose: Not Given Sodium Chloride (0.9 % Sodium Chloride 10 Ml Syringe) 10 ml IV Q8 [facility] Last Admin: 05/28/22 05:30 Dose: Not Given A/P Narrative A/P Narrative: Assessment: 81-year-old male with a history of hypertension, hypothyroidism, seizure disorder, urinary retention and advanced dementia who lives in an assisted living facility who was found to have a left subcapital femur fracture after an unwitnessed fall. #Left subcapital femur fracture status post ORIF 05/27/2022 #Hypertension #Seizure disorder #Hypothyroidism #Urinary retention complicated by bilateral hydronephrosis/hydroureter #Advanced dementia Plan -Analgesics -Discontinue IV fluid. -Seroquel 25 mg at bedtime. -Zyprexa 5 mg IM as needed for severe agitation. -Continue home Norvasc, valproic acid, levothyroxine, Ativan, meloxicam, memantine, Prilosec, phenytoin, prazosin, sertraline, eyedrops. -Winslow catheter. -PT consult. -Regular diet. -DVT prophylaxis: Lovenox -CODE STATUS: DNR/DNI -Disposition: Probably SNF versus return to assisted living facility with home health. Consider hospice if the patient does not recover well after surgery. Time Spent With Patient Time: Total time spent is greater than 50% in coordination of care (as documented) at patient's floor/unit and/or counseling patient:
[2022-05-28] MEDS: HYDROcodone/APAP 5/325MG TABLET PO PRN ×2 (10:56→17:16)
[2022-05-28] MEDS ORDERED: ARTIFICIAL TEARS 0.3% OPHTHALMIC PRN (11:05)
[2022-05-28] MEDS ORDERED: LORazepam 0.5 MG TABLET PO PRN (11:05)
--- NOTE | 2022-05-28 12:57 | Orthopedic Progress Note ---
SUBJECTIVE Subjective Patient information: Note initiated : 05/28/22 at 12:51 pm Service Date, if different from initiated Date: [] Patient: Guilherme eYpez 81 y/o M admitted on 05/27/22 for FALL. Chief Complaint: [hip fx treated with hemiarthroplasty and is eating but is confused which is baseline via report of nursing] Principal diagnosis: hip fx and confusion Constitutional Vitals: Vital Signs Temp Pulse Resp BP Pulse Ox O2 Del Method O2 Flow Rate 98.4 F 95 H 16 158/75 91 3 05/28/22 11:58 05/28/22 11:58 05/28/22 11:58 05/28/22 11:58 05/28/22 11:58 05/28/22 11:58 05/28/22 11:58 Period Temp Pulse Resp BP Sys/Oliveros Pulse Ox O2 Del Method O2 Flow Rate Last 24 Hr 97.4 F-98.9 F 49-95 10-24 120-195/60-115 81-100 Nasal Cannula- Room Air 0.5-6 Intake and Output 05/28/22 05/28/22 05/28/22 03:59 11:59 19:59 Intake Total 941 100 Output Total 300 Balance 941 -200 Weight 168 lb Patient Weight 05/29/22 03:59 Weight 168 lb Intake & Output: Intake & Output 05/28/22 05/28/22 05/28/22 03:59 11:59 19:59 Intake Total 941 100 Output Total 300 Balance 941 -200 Weight 168 lb Intake: IV 941 100 Sodium Chloride 0.9% 1,000 ml @ 841 75 mls/hr IV .[id number] [facility] Rx#: [id number] Output: Urine Catheter Amount 300 Other: Urine Appearance Hematuria Uretheral (Winslow) Hematuria Urine Color Medium Red Uretheral (Winslow) Medium Red Urine Odor Normal Uretheral (Winslow) Normal General appearance: no acute distress and thin Head Head exam: Present atraumatic Extremities Exam Extremities exam: Present normal capillary refill and tenderness Expanded Neurological Exam Neurological exam: Present memory loss-recent event OBJ DATA Labs CBC & Chem 7: 05/27/22 10:25 05/27/22 10:25 Labs: Abnormal Lab Results 05/27/22 05/27/22 05/27/22 11:23 10:25 04:00 WBC RBC Hgb Hct POC Hct 32.0 L Neut % (Auto) Lymph % (Auto) Lymph # (Auto) Sanders # (Auto) Immature Gran # Absolute Neutrophils POC BUN 21 H Glucose 109 H POC Glucose 130 H POC WB Ioniz Calcium 1.09 L Urine Protein 30 A Urine Occult Blood Large A Urine RBC 112 H Urine WBC 6 H Urine Mucus Few A 05/27/22 02:46 WBC 16.3 H RBC 3.62 L Hgb 11.1 L Hct 33.0 L POC Hct Neut % (Auto) 87.7 H Lymph % (Auto) 3.3 L Lymph # (Auto) 0.53 L Sanders # (Auto) 1.34 H Immature Gran # 0.08 H Absolute Neutrophils 14.28 H POC BUN Glucose POC Glucose POC WB Ioniz Calcium Urine Protein Urine Occult Blood Urine RBC Urine WBC Urine Mucus Meds: Medications Hydrocodone Bitart/Acetaminophen (Hydrocodone/Apap 5/325mg Tablet) 1 tab PO Q4HP PRN; Protocol PRN Reason: Per Pain Protocol Last Admin: 05/28/22 10:56 Dose: 1 tab Amlodipine Besylate (Amlodipine 10 Mg Tablet) 10 mg PO DAILY [facility] Artificial Tears (Carboxymethylcellulose Sodium 1 Each Droper.Gel) 0 each OD QID [facility] Divalproex Sodium (Divalproex 125 Mg Cap.Sprink) 500 mg PO HS [facility] Docusate Sodium (Docusate Sodium 100 Mg Capsule) 100 mg PO BID [facility] Last Admin: 05/28/22 10:54 Dose: 100 mg Enoxaparin Sodium (Enoxaparin 40 Mg/0.4 Ml Syringe) 40 mg SQ DAILY [facility] Hydromorphone HCl (Hydromorphone 0.5 Mg/0.5 Ml Syringe) 0.5 mg IV Q2HP PRN; Protocol PRN Reason: Per Pain Protocol Last Admin: 05/28/22 09:49 Dose: 0.5 mg Acetaminophen (Ofirmev) 1,000 mg in 100 mls @ 200 mls/hr IV Q8H [facility]; Protocol Last Infusion: 05/28/22 08:05 Dose: Infused Levothyroxine Sodium (Levothyroxine 25 Mcg Tablet) 25 mcg PO ACB [facility] Lorazepam (Lorazepam 0.5 Mg Tablet) 0.5 mg PO TID [facility] Lorazepam (Lorazepam 0.5 Mg Tablet) 0.5 mg PO TIDP PRN PRN Reason: agitation Melatonin (Melatonin 3 Mg Tablet) 3 mg PO HSP [facility] Meloxicam (Meloxicam 7.5 Mg Tablet) 15 mg PO DAILY [facility] Memantine (Memantine 10 Mg Tablet) 5 mg PO BID [facility] Non-Formulary Medication (Olopatadine) 2 drp OPHTHALMIC BID [facility] Olanzapine (Olanzapine 10 Mg Vial) 5 mg IM Q6HP PRN PRN Reason: Severe agitation Last Admin: 05/28/22 06:46 Dose: 5 mg Omeprazole (Omeprazole 20 Mg Capsule) 20 mg PO ACB [facility] Ondansetron HCl (Ondansetron 4 Mg/2 Ml Vial) 4 mg IV Q6HP PRN PRN Reason: Nausea And Vomiting Phenytoin Sodium (Phenytoin Sod 100 Mg Capsule) 100 mg PO DAILY [facility] Phenytoin Sodium (Phenytoin Sod 100 Mg Capsule) 200 mg PO HS [facility] Prazosin HCl (Prazosin 1 Mg Capsule) 1 mg PO QHS [facility] Quetiapine Fumarate (Quetiapine 25 Mg Tablet) 25 mg PO DAILY@1800 [facility] Senna (Sennosides 1 Tablet) 2 tab PO HS [facility] Last Admin: 05/27/22 20:38 Dose: Not Given Sertraline HCl (Sertraline 100 Mg Tablet) 150 mg PO QAM [facility] Sodium Chloride (0.9 % Sodium Chloride 10 Ml Syringe) 10 ml IV Q8 [facility] Last Admin: 05/28/22 05:30 Dose: Not Given Impressions Impression: confused eating slow to ambulate secondary to mentation A/P Assessment and plan (1) Alzheimer's dementia with behavioral disturbance: Status: Acute (2) Dementia: Status: Acute Qualifiers: Alzheimer's disease onset: unspecified onset Dementia behavioral disturbance: with behavioral disturbance Dementia type: Alzheimer's Qualified Code(s): G30.9 - Alzheimer's disease, unspecified; F02.81 - Dementia in other diseases classified elsewhere with behavioral disturbance (3) Fracture of hip, left, closed: Status: Acute Qualifiers: Encounter type: initial encounter Qualified Code(s): S72.002A - Fracture of unspecified part of neck of left femur, initial encounter for closed fracture Plan dc to snf Sepsis Sepsis Identified: No Time Spent With Patient Time: Total time spent is greater than 50% in coordination of care (as documented) at patient's floor/unit and/or counseling patient:
[2022-05-28] MEDS: ENOXAPARIN 40 MG/0.4 ML SYRINGE SQ SCH (13:18)
[2022-05-28] MEDS: CARBOXYMETHYLCELLULOSE SODIUM 1 EACH DROPER.GEL OD SCH ×3 (13:22→21:00)
[2022-05-28] MEDS ORDERED: LORazepam 0.5 MG TABLET PO SCH (15:00)
[2022-05-28] MEDS ORDERED: QUEtiapine 25 MG TABLET PO SCH (18:00)
[2022-05-28] MEDS: PRAZOSIN 1 MG CAPSULE PO SCH (20:59)
[2022-05-28] MEDS: LORazepam 0.5 MG TABLET PO SCH (20:59)
[2022-05-28] MEDS: PHENYTOIN SOD 100 MG CAPSULE PO SCH (20:59)
[2022-05-28] MEDS: MEMANTINE 10 MG TABLET PO SCH (20:59)
[2022-05-28] MEDS: SENNOSIDES 1 TABLET PO SCH (20:59)
[2022-05-28] MEDS: DIVALPROEX 125 MG CAP.SPRINK PO SCH (21:00)
[2022-05-28] MEDS: Olopatadine 0.1 % drops OS SCH (21:00)
[2022-05-29] MEDS: ACETAMINOPHEN 1,000 MG/100 ML BAG IV SCH ×3 (01:03→15:21)
[2022-05-29] MEDS: OLANZapine 10 MG VIAL IM PRN (02:35)
[2022-05-29] MEDS: 0.9 % SODIUM CHLORIDE 10 ML SYRINGE IV SCH ×3 (06:02→20:52)
[2022-05-29] MEDS: HYDROmorphone 0.5 MG/0.5 ML SYRINGE IV PRN ×3 (06:44→22:48)
[2022-05-29] MEDS: LEVOTHYROXINE 25 MCG TABLET PO SCH (06:53)
[2022-05-29] MEDS: OMEPRAZOLE 20 MG CAPSULE PO SCH (06:53)
[2022-05-29] MEDS: Olopatadine 0.1 % drops OS SCH ×2 (08:35→20:51)
[2022-05-29 08:46] LABS: Basophils # (Auto) 0.08 K/mcL (0.00-0.30); Basophils % (Auto) 0.7 % (0.0-2.0); Eosinophils # (Auto) 0.24 K/mcL (0.00-0.70); Hematocrit 24.2 % (40.1-51.0); Hemoglobin 8.1 g/dL (13.7-17.5); Lymphocytes # (Auto) 1.03 K/mcL (1.50-4.80); Lymphocytes % (Auto) 8.5 % (15.5-49.0); Mean Cell Volume 93.1 fL (80.0-100.0); Mean Corpuscular HGB Conc 33.5 g/dL (31.0-36.0); Mean Platelet Volume 11.2 fL (8.8-12.5); Monocytes # (Auto) 0.91 K/mcL (0.10-0.90); Monocytes % (Auto) 7.5 % (1.0-12.0); Neutrophils % (Auto) 80.7 % (38.0-78.0); Platelet Count 132 K/mcL (140-440); Red Cell Distribution Width 13.1 % (11.5-14.5); WBC 12.1 K/mcL (4.5-11.0)
[2022-05-29] MEDS: PHENYTOIN SOD 100 MG CAPSULE PO SCH ×2 (08:56→20:50)
[2022-05-29] MEDS: DOCUSATE SODIUM 100 MG CAPSULE PO SCH ×2 (08:56→20:51)
[2022-05-29] MEDS: amLODIPine 10 MG TABLET PO SCH (08:56)
[2022-05-29] MEDS: LORazepam 0.5 MG TABLET PO SCH ×2 (08:56→20:51)
[2022-05-29] MEDS: SERTRALINE 100 MG TABLET PO SCH (08:56)
[2022-05-29] MEDS: MELOXICAM 7.5 MG TABLET PO SCH (08:56)
[2022-05-29] MEDS: MEMANTINE 10 MG TABLET PO SCH ×2 (09:03→20:50)
[2022-05-29] MEDS: HYDROcodone/APAP 5/325MG TABLET PO PRN ×2 (09:03→13:36)
[2022-05-29 09:06] LABS: ALT/SGPT 25 U/L (<40); AST/SGOT 103 U/L (<40); Albumin 3.5 gm/dL (3.2-5.2); Albumin/Globulin Ratio 1.6 (1.0-2.3); Alkaline Phosphatase 68 U/L (39-117); Bilirubin,Direct < 0.2 mg/dL (0-0.3); Bilirubin,Total 0.4 mg/dL (0.1-1.0); Blood Urea Nitrogen 28 mg/dL (8-23); Calcium 8.5 mg/dL (8.6-10.4); Carbon Dioxide 27 mmol/L (22-30); Chloride 107 mmol/L (96-108); Globulin 2.2 gm/dL (2.2-3.7); Glomerular Filtration Rate 55; Glucose 112 mg/dL (70-105); Lactate Dehydrogenase 478 U/L (135-225); Phosphorous 2.6 mg/dL (2.5-4.5); Triglycerides 183 mg/dL (<150); Uric Acid 4.5 mg/dL (2.5-8.0)
[2022-05-29] MEDS: ENOXAPARIN 40 MG/0.4 ML SYRINGE SQ SCH (10:19)
[2022-05-29] MEDS: CARBOXYMETHYLCELLULOSE SODIUM 1 EACH DROPER.GEL OD SCH ×4 (10:20→20:51)
--- NOTE | 2022-05-29 11:30 | Internal Med Progress Note ---
SUBJECTIVE Subjective Patient information: Note initiated : 05/29/22 at 11:25 am Service Date, if different from initiated Date: [] Patient: Guilherme Yepez 81 y/o M admitted on 05/27/22 for FALL. Chief Complaint: [] Principal diagnosis: hip fx and confusion Interval history: Mr. Yepez is a 81-year-old male with a history of hypertension, hypothyroidism, seizure disorder, urinary retention and advanced dementia who lives in an assisted living facility and was brought into the emergency department for evaluation after being found down by the assisted living staff. Patient was unable to provide a history due to advanced dementia. The patient was found to have a left mildly displaced oblique subcapital fracture of the left hip as well as marked prostate enlargement resulting in massive urinary bladder distention and bilateral hydronephrosis and hydroureter. Orthopedic surgery was consulted, recommended surgical correction for the hip fracture. A Winslow catheter was placed in the emergency department. Hospital medicine was consulted for admission. I discussed the patient with his sister, Barbara, who decided that the patient's CODE STATUS would be DNR/DNI. 05/28 Patient had ORIF of the left hip fracture yesterday. Postoperatively the patient was severely agitated and not redirectable, the patient was given Zyprexa IM. This morning the patient is resting comfortably, continues with Winslow catheter. Urinalysis was not suggestive of UTI. 05/29 Patient had an assisted fall last night, no injuries sustained. Patient received Zyprexa last night, resting comfortably this morning.. Pharmacy completed home medication reconciliation and says the patient was taking Ativan 0.5 p.o. mg 3 times daily prior to admission. Will wean off Ativan to avoid benzodiazepine withdrawal. Added Seroquel 25 mg at bedtime. Physical exam Head: Atraumatic, normal inspection. Eyes: normal appearance, no scleral icterus. Neck: full ROM Respiratory: no respiratory distress. Cardiovascular: normal rate and rhythm, S1, S2. GI/Abdominal: soft, nontender, no guarding. Extremities: Left hip covered with clean bandage. : Indwelling Winslow catheter Neurological: CN II-XII intact, intact motor, intact sensation. Psychiatric: Cognitive impairment Skin: warm, normal color Constitutional Vitals: Vital Signs Temp Pulse Resp BP Pulse Ox O2 Del Method O2 Flow Rate 99.2 F H 92 H 16 128/93 95 1 05/29/22 08:00 05/29/22 08:00 05/29/22 08:00 05/29/22 08:00 05/29/22 08:00 05/29/22 08:00 05/28/22 18:25 Period Temp Pulse Resp BP Sys/Oliveros Pulse Ox O2 Del Method O2 Flow Rate Last 24 Hr 98.4 F-99.9 F 90-110 16-18 128-170/61-94 91-99 Nasal Cannula- Room Air 1-3 Intake and Output 05/28/22 05/29/22 05/29/22 19:59 03:59 11:59 Intake Total 850 100 410 Output Total 300 350 Balance 550 100 60 Weight 68.124 kg Intake & Output: Intake & Output 05/28/22 05/29/22 05/29/22 19:59 03:59 11:59 Intake Total 850 100 410 Output Total 300 350 Balance 550 100 60 Weight 68.124 kg Intake: IV 850 100 100 Sodium Chloride 0.9% 1,000 ml @ 750 75 mls/hr IV .[id number] [facility] Rx#: [id number] Oral 310 Output: Urine Catheter Amount 300 350 Other: Meal Breakfast Percent of Meal Consumed Refused 75% Feeding Ability Assist with Tray Set Up Total Assistance Urine Appearance Clear Hematuria Uretheral (Winslow) Hematuria Urine Color Light Red Light Red Uretheral (Winslow) Light Red Urine Odor Uretheral (Winslow) Normal OBJ DATA Labs CBC & Chem 7: 05/29/22 08:09 05/29/22 08:09 Labs: Abnormal Lab Results 05/29/22 05/29/22 05/27/22 08:09 08:09 11:23 WBC 12.1 H RBC 2.60 L Hgb 8.1 L Hct 24.2 L POC Hct Plt Count 132 L Immature Gran % (Auto) 0.6 H Neut % (Auto) 80.7 H Lymph % (Auto) 8.5 L Lymph # (Auto) 1.03 L Morton # (Auto) 0.91 H Immature Gran # 0.07 H Absolute Neutrophils 9.73 H POC BUN BUN 28 H Glucose 112 H POC Glucose Calcium 8.5 L POC WB Ioniz Calcium AST 103 H Lactate Dehydrogenase 478 H Total Protein 5.7 L Triglycerides 183 H Urine Protein 30 A Urine Occult Blood Large A Urine RBC 112 H Urine WBC 6 H Urine Mucus Few A 05/27/22 05/27/22 05/27/22 10:25 04:00 02:46 WBC 16.3 H RBC 3.62 L Hgb 11.1 L Hct 33.0 L POC Hct 32.0 L Plt Count Immature Gran % (Auto) Neut % (Auto) 87.7 H Lymph % (Auto) 3.3 L Lymph # (Auto) 0.53 L Morton # (Auto) 1.34 H Immature Gran # 0.08 H Absolute Neutrophils 14.28 H POC BUN 21 H BUN Glucose 109 H POC Glucose 130 H Calcium POC WB Ioniz Calcium 1.09 L AST Lactate Dehydrogenase Total Protein Triglycerides Urine Protein Urine Occult Blood Urine RBC Urine WBC Urine Mucus Meds: Medications Hydrocodone Bitart/Acetaminophen (Hydrocodone/Apap 5/325mg Tablet) 1 tab PO Q4HP PRN; Protocol PRN Reason: Per Pain Protocol Last Admin: 05/29/22 09:03 Dose: 1 tab Amlodipine Besylate (Amlodipine 10 Mg Tablet) 10 mg PO DAILY [facility] Last Admin: 05/29/22 08:56 Dose: 10 mg Artificial Tears (Carboxymethylcellulose Sodium 1 Each Droper.Gel) 0 each OD QID [facility] Last Admin: 05/29/22 10:20 Dose: 1 each Divalproex Sodium (Divalproex 125 Mg Cap.Sprink) 500 mg PO HS [facility] Last Admin: 05/28/22 21:00 Dose: 500 mg Docusate Sodium (Docusate Sodium 100 Mg Capsule) 100 mg PO BID [facility] Last Admin: 05/29/22 08:56 Dose: 100 mg Enoxaparin Sodium (Enoxaparin 40 Mg/0.4 Ml Syringe) 40 mg SQ DAILY [facility] Last Admin: 05/29/22 10:19 Dose: 40 mg Hydromorphone HCl (Hydromorphone 0.5 Mg/0.5 Ml Syringe) 0.5 mg IV Q2HP PRN; Protocol PRN Reason: Per Pain Protocol Last Admin: 05/29/22 09:15 Dose: 0.5 mg Acetaminophen (Ofirmev) 1,000 mg in 100 mls @ 200 mls/hr IV Q8H [facility]; Protocol Last Infusion: 05/29/22 08:10 Dose: Infused Levothyroxine Sodium (Levothyroxine 25 Mcg Tablet) 25 mcg PO ACB [facility] Last Admin: 05/29/22 06:53 Dose: 25 mcg Lorazepam (Lorazepam 0.5 Mg Tablet) 0.5 mg PO BID [facility] Last Admin: 05/29/22 08:56 Dose: 0.5 mg Melatonin (Melatonin 3 Mg Tablet) 3 mg PO HSP [facility] Meloxicam (Meloxicam 7.5 Mg Tablet) 15 mg PO DAILY [facility] Last Admin: 05/29/22 08:56 Dose: 15 mg Memantine (Memantine 10 Mg Tablet) 5 mg PO BID [facility] Last Admin: 05/29/22 09:03 Dose: 5 mg Olanzapine (Olanzapine 10 Mg Vial) 5 mg IM Q6HP PRN PRN Reason: Severe agitation Last Admin: 05/29/22 02:35 Dose: 5 mg Omeprazole (Omeprazole 20 Mg Capsule) 20 mg PO ACB [facility] Last Admin: 05/29/22 06:53 Dose: 20 mg Ondansetron HCl (Ondansetron 4 Mg/2 Ml Vial) 4 mg IV Q6HP PRN PRN Reason: Nausea And Vomiting Olopatadine 0.1 % (Drops) 1 dose OS BID [facility] Last Admin: 05/29/22 08:35 Dose: Not Given Phenytoin Sodium (Phenytoin Sod 100 Mg Capsule) 100 mg PO DAILY [facility] Last Admin: 05/29/22 08:56 Dose: 100 mg Phenytoin Sodium (Phenytoin Sod 100 Mg Capsule) 200 mg PO [facility] Last Admin: 05/28/22 20:59 Dose: 200 mg Prazosin HCl (Prazosin 1 Mg Capsule) 1 mg PO QHS [facility] Last Admin: 05/28/22 20:59 Dose: 1 mg Quetiapine Fumarate (Quetiapine 25 Mg Tablet) 25 mg PO DAILY@1800 [facility] Last Admin: 05/28/22 17:14 Dose: 25 mg Senna (Sennosides 1 Tablet) 2 tab PO HS [facility] Last Admin: 05/28/22 20:59 Dose: 2 tab Sertraline HCl (Sertraline 100 Mg Tablet) 150 mg PO QAM [facility] Last Admin: 05/29/22 08:56 Dose: 150 mg Sodium Chloride (0.9 % Sodium Chloride 10 Ml Syringe) 10 ml IV Q8 [facility] Last Admin: 05/29/22 06:02 Dose: 10 ml A/P Narrative A/P Narrative: Assessment: 81-year-old male with a history of hypertension, hypothyroidism, seizure disorder, urinary retention and advanced dementia who lives in an assisted living facility who was found to have a left subcapital femur fracture after an unwitnessed fall. The patient underwent ORIF of the femur fracture on 05/27/2022. The postoperative course was complicated by intermittent behavioral disturbances and severe agitation. #Left subcapital femur fracture status post ORIF 05/27/2022 #Advanced dementia with intermittent behavioral disturbances #Hypertension #Seizure disorder #Hypothyroidism #Urinary retention complicated by bilateral hydronephrosis/hydroureter Plan -Analgesics -Seroquel 25 mg at bedtime. -Zyprexa 5 mg IM as needed for severe agitation. -Taper off home Ativan to avoid benzodiazepine withdrawal. -Continue home Norvasc, valproic acid, levothyroxine, meloxicam, memantine, Prilosec, phenytoin, prazosin, sertraline, eyedrops. -Winslow catheter, consider trial of voiding tomorrow. -PT consult. -Regular diet. -DVT prophylaxis: Lovenox -CODE STATUS: DNR/DNI -Disposition: Probably SNF versus return to assisted living facility with home health. Consider hospice if the patient does not recover well after surgery. Time Spent With Patient Time: Total time spent is greater than 50% in coordination of care (as documented) at patient's floor/unit and/or counseling patient:
[2022-05-29] MEDS: QUEtiapine 25 MG TABLET PO SCH ×3 (19:21→20:52)
[2022-05-29] MEDS: SENNOSIDES 1 TABLET PO SCH (20:50)
[2022-05-29] MEDS: DIVALPROEX 125 MG CAP.SPRINK PO SCH (20:50)
[2022-05-29] MEDS: PRAZOSIN 1 MG CAPSULE PO SCH (20:51)
--- NOTE | 2022-05-29 21:53 | EKG ---
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
[2022-05-30] MEDS: ACETAMINOPHEN 1,000 MG/100 ML BAG IV SCH ×3 (00:10→16:28)
[2022-05-30] MEDS: 0.9 % SODIUM CHLORIDE 10 ML SYRINGE IV SCH ×3 (05:32→23:55)
[2022-05-30 06:59] LABS: Basophils # (Auto) 0.04 K/mcL (0.00-0.30); Basophils % (Auto) 0.5 % (0.0-2.0); Eosinophils # (Auto) 0.35 K/mcL (0.00-0.70); Lymphocytes # (Auto) 0.98 K/mcL (1.50-4.80); Lymphocytes % (Auto) 11.2 % (15.5-49.0); Mean Cell Volume 92.7 fL (80.0-100.0); Mean Corpuscular HGB Conc 33.3 g/dL (31.0-36.0); Monocytes # (Auto) 0.55 K/mcL (0.10-0.90); Monocytes % (Auto) 6.3 % (1.0-12.0); Neutrophils % (Auto) 77.4 % (38.0-78.0); Platelet Count 155 K/mcL (140-440); RBC 2.59 M/mcL (4.63-6.08); Red Cell Distribution Width 13.2 % (11.5-14.5); WBC 8.7 K/mcL (4.5-11.0)
[2022-05-30 07:19] LABS: ALT/SGPT 29 U/L (<40); AST/SGOT 90 U/L (<40); Albumin 3.6 gm/dL (3.2-5.2); Albumin/Globulin Ratio 1.6 (1.0-2.3); Alkaline Phosphatase 70 U/L (39-117); Bilirubin,Direct < 0.2 mg/dL (0-0.3); Bilirubin,Total 0.4 mg/dL (0.1-1.0); Blood Urea Nitrogen 22 mg/dL (8-23); Calcium 8.7 mg/dL (8.6-10.4); Carbon Dioxide 28 mmol/L (22-30); Chloride 111 mmol/L (96-108); Globulin 2.3 gm/dL (2.2-3.7); Glomerular Filtration Rate 69; Glucose 104 mg/dL (70-105); Lactate Dehydrogenase 440 U/L (135-225); Triglycerides 175 mg/dL (<150)
--- NOTE | 2022-05-30 07:57 | Internal Med Progress Note ---
SUBJECTIVE Subjective Patient information: Note initiated : 05/30/22 at 7:57 am Service Date, if different from initiated Date: [] Patient: Guilherme Yepez 81 y/o M admitted on 05/27/22 for FALL. Chief Complaint: [] Principal diagnosis: hip fx and confusion Interval history: Mr. Yepez is a 81-year-old male with a history of hypertension, hypothyroidism, seizure disorder, urinary retention and advanced dementia who lives in an assisted living facility and was brought into the emergency department for evaluation after being found down by the assisted living staff. Patient was unable to provide a history due to advanced dementia. The patient was found to have a left mildly displaced oblique subcapital fracture of the left hip as well as marked prostate enlargement resulting in massive urinary bladder distention and bilateral hydronephrosis and hydroureter. Orthopedic surgery was consulted, recommended surgical correction for the hip fracture. A Winslow catheter was placed in the emergency department. Hospital medicine was consulted for admission. I discussed the patient with his sister, Barbara, who decided that the patient's CODE STATUS would be DNR/DNI. 05/28 Patient had ORIF of the left hip fracture yesterday. Postoperatively the patient was severely agitated and not redirectable, the patient was given Zyprexa IM. This morning the patient is resting comfortably, continues with Winslow catheter. Urinalysis was not suggestive of UTI. 05/29 Patient had an assisted fall last night, no injuries sustained. Patient received Zyprexa last night, resting comfortably this morning.. Pharmacy completed home medication reconciliation and says the patient was taking Ativan 0.5 p.o. mg 3 times daily prior to admission. Will wean off Ativan to avoid benzodiazepine withdrawal. Added Seroquel 25 mg at bedtime. 05/30 Vital stable overnight, hemoglobin 8.0 today, will recheck this afternoon. Leukocytosis resolved. Sodium 150, started D5 IV fluid and will recheck sodium in the afternoon. Physical exam Head: Atraumatic, normal inspection. Eyes: normal appearance, no scleral icterus. Neck: full ROM Respiratory: no respiratory distress. Cardiovascular: normal rate and rhythm, S1, S2. GI/Abdominal: soft, nontender, no guarding. Extremities: Left hip covered with clean bandage. : Indwelling Winslow catheter Neurological: CN II-XII intact, intact motor, intact sensation. Psychiatric: Cognitive impairment Skin: warm, normal color Constitutional Vitals: Vital Signs Temp Pulse Resp BP Pulse Ox O2 Del Method O2 Flow Rate 97.6 F 70 16 162/102 99 2 05/30/22 07:38 05/30/22 07:38 05/30/22 07:38 05/30/22 07:38 05/30/22 07:38 05/30/22 07:38 05/29/22 11:29 Period Temp Pulse Resp BP Sys/Oliveros Pulse Ox O2 Del Method O2 Flow Rate Last 24 Hr 97.3 F-99.2 F 64-92 12-20 128-162/56-102 90-100 Nasal Cannula- Room Air 2 Intake and Output 05/29/22 05/30/22 05/30/22 19:59 03:59 11:59 Intake Total 110 300 Output Total 600 450 Balance -490 -150 Weight 70.874 kg Intake & Output: Intake & Output 05/29/22 05/30/22 05/30/22 19:59 03:59 11:59 Intake Total 110 300 Output Total 600 450 Balance -490 -150 Weight 70.874 kg Intake: IV 100 100 Oral 10 200 Output: Urine Catheter Amount 600 450 Other: Meal Dinner Dinner Percent of Meal Consumed Refused 25% Feeding Ability Total Assistance Total Assistance Urine Appearance Clear Uretheral (Winslow) Clear Urine Color Light Lena Light Lena Blood Tinged Uretheral (Winslow) Light Lena Urine Odor Normal Uretheral (Winslow) Normal OBJ DATA Labs CBC & Chem 7: 05/30/22 05:57 05/30/22 05:56 Labs: Abnormal Lab Results 05/30/22 05/30/22 05/29/22 05:57 05:56 08:09 WBC RBC 2.59 L Hgb 8.0 L Hct 24.0 L Plt Count Immature Gran % (Auto) 0.6 H Neut % (Auto) Lymph % (Auto) 11.2 L Lymph # (Auto) 0.98 L [place] # (Auto) Immature Gran # Absolute Neutrophils Sodium 150 H Chloride 111 H BUN 28 H Glucose 112 H Calcium 8.5 L Phosphorus 2.0 L AST 90 H 103 H Lactate Dehydrogenase 440 H 478 H Total Protein 5.7 L Triglycerides 175 H 183 H Urine Protein Urine Occult Blood Urine RBC Urine WBC Urine Mucus 05/29/22 05/27/2205/27/22 08:09 11:23 10:25 WBC 12.1 H RBC 2.60 L Hgb 8.1 L Hct 24.2 L Plt Count 132 L Immature Gran % (Auto) 0.6 H Neut % (Auto) 80.7 H Lymph % (Auto) 8.5 L Lymph # (Auto) 1.03 L [place] # (Auto) 0.91 H Immature Gran # 0.07 H Absolute Neutrophils 9.73 H Sodium Chloride BUN Glucose 109 H Calcium Phosphorus AST Lactate Dehydrogenase Total Protein Triglycerides Urine Protein 30 A Urine Occult Blood Large A Urine RBC 112 H Urine WBC 6 H Urine Mucus Few A Meds: Medications Hydrocodone Bitart/Acetaminophen (Hydrocodone/Apap 5/325mg Tablet) 1 tab PO Q4HP PRN; Protocol PRN Reason: Per Pain Protocol Last Admin: 05/29/22 13:36 Dose: 1 tab Amlodipine Besylate (Amlodipine 10 Mg Tablet) 10 mg PO DAILY [facility] Last Admin: 05/29/22 08:56 Dose: 10 mg Artificial Tears (Carboxymethylcellulose Sodium 1 Each Droper.Gel) 0 each OD QID [facility] Last Admin: 05/29/22 20:51 Dose: 1 each Divalproex Sodium (Divalproex 125 Mg Cap.Sprink) 500 mg PO HS [facility] Last Admin: 05/29/22 20:50 Dose: 500 mg Docusate Sodium (Docusate Sodium 100 Mg Capsule) 100 mg PO BID [facility] Last Admin: 05/29/22 20:51 Dose: 100 mg Enoxaparin Sodium (Enoxaparin 40 Mg/0.4 Ml Syringe) 40 mg SQ DAILY [facility] Last Admin: 05/29/22 10:19 Dose: 40 mg Hydromorphone HCl (Hydromorphone 0.5 Mg/0.5 Ml Syringe) 0.5 mg IV Q2HP PRN; Protocol PRN Reason: Per Pain Protocol Last Admin: 05/29/22 22:48 Dose: 0.5 mg Acetaminophen (Ofirmev) 1,000 mg in 100 mls @ 200 mls/hr IV Q8H [facility]; Protocol Last Infusion: 05/30/22 00:43 Dose: Infused Levothyroxine Sodium (Levothyroxine 25 Mcg Tablet) 25 mcg PO ACB [facility] Last Admin: 05/29/22 06:53 Dose: 25 mcg Lorazepam (Lorazepam 0.5 Mg Tablet) 0.5 mg PO BID [facility] Last Admin: 05/29/22 20:51 Dose: 0.5 mg Melatonin (Melatonin 3 Mg Tablet) 3 mg PO HSP [facility] Meloxicam (Meloxicam 7.5 Mg Tablet) 15 mg PO DAILY [facility] Last Admin: 05/29/22 08:56 Dose: 15 mg Memantine (Memantine 10 Mg Tablet) 5 mg PO BID [facility] Last Admin: 05/29/22 20:50 Dose: 5 mg Olanzapine (Olanzapine 10 Mg Vial) 5 mg IM Q6HP PRN PRN Reason: Severe agitation Last Admin: 05/29/22 02:35 Dose: 5 mg Omeprazole (Omeprazole 20 Mg Capsule) 20 mg PO ACB [facility] Last Admin: 05/29/22 06:53 Dose: 20 mg Ondansetron HCl (Ondansetron 4 Mg/2 Ml Vial) 4 mg IV Q6HP PRN PRN Reason: Nausea And Vomiting Olopatadine 0.1 % (Drops) 1 dose OS BID [facility] Last Admin: 05/29/22 20:51 Dose: Not Given Phenytoin Sodium (Phenytoin Sod 100 Mg Capsule) 100 mg PO DAILY [facility] Last Admin: 05/29/22 08:56 Dose: 100 mg Phenytoin Sodium (Phenytoin Sod 100 Mg Capsule) 200 mg PO [facility] Last Admin: 05/29/22 20:50 Dose: 200 mg Prazosin HCl (Prazosin 1 Mg Capsule) 1 mg PO QHS [facility] Last Admin: 05/29/22 20:51 Dose: 1 mg Quetiapine Fumarate (Quetiapine 25 Mg Tablet) 50 mg PO DAILY@1800 [facility] Last Admin: 05/29/22 20:52 Dose: 50 mg Senna (Sennosides 1 Tablet) 2 tab PO HS [facility] Last Admin: 05/29/22 20:50 Dose: 2 tab Sertraline HCl (Sertraline 100 Mg Tablet) 150 mg PO QAM [facility] Last Admin: 05/29/22 08:56 Dose: 150 mg Sodium Chloride (0.9 % Sodium Chloride 10 Ml Syringe) 10 ml IV Q8 [facility] Last Admin: 05/30/22 05:32 Dose: 10 ml A/P Narrative A/P Narrative: Assessment: 81-year-old male with a history of hypertension, hypothyroidism, seizure disorder, urinary retention and advanced dementia who lives in an assisted living facility who was found to have a left subcapital femur fracture after an unwitnessed fall. The patient underwent ORIF of the femur fracture on 05/27/2022. The postoperative course was complicated by intermittent behavioral disturbances and severe agitation. #Left subcapital femur fracture status post ORIF 05/27/2022 #Advanced dementia with intermittent behavioral disturbances #Postoperative acute on chronic anemia #Hypernatremia #Hypertension #Seizure disorder #Hypothyroidism #Urinary retention complicated by bilateral hydronephrosis/hydroureter Plan -D5 IV fluid, follow sodium. -Follow hemoglobin, transfuse for hemoglobin less than 7 or symptomatic anemia. -Analgesics -Seroquel 25 mg at bedtime. -Zyprexa 5 mg IM as needed for severe agitation. -Taper off home Ativan to avoid benzodiazepine withdrawal. -Continue home Norvasc, valproic acid, levothyroxine, meloxicam, memantine, Prilosec, phenytoin, prazosin, sertraline, eyedrops. -Winslow catheter for now given severe urinary retention at admission, consider trial of voiding tomorrow. -PT consult. -Regular diet. -DVT prophylaxis: Lovenox -CODE STATUS: DNR/DNI -Disposition: Probably SNF versus return to assisted living facility with home health. If the patient requires a Winslow catheter at discharge for urinary retention, recommend urology referral. Consider hospice if the patient does not recover well after surgery. Time Spent With Patient Time: Total time spent is greater than 50% in coordination of care (as documented) at patient's floor/unit and/or counseling patient:
[2022-05-30] MEDS: MELOXICAM 7.5 MG TABLET PO SCH (08:06)
[2022-05-30] MEDS: ENOXAPARIN 40 MG/0.4 ML SYRINGE SQ SCH (08:06)
[2022-05-30] MEDS: SERTRALINE 100 MG TABLET PO SCH (08:06)
[2022-05-30] MEDS: MEMANTINE 10 MG TABLET PO SCH ×2 (08:07→21:35)
[2022-05-30] MEDS: PHENYTOIN SOD 100 MG CAPSULE PO SCH ×2 (08:07→21:36)
[2022-05-30] MEDS: amLODIPine 10 MG TABLET PO SCH (08:07)
[2022-05-30] MEDS: OMEPRAZOLE 20 MG CAPSULE PO SCH (08:07)
[2022-05-30] MEDS: DOCUSATE SODIUM 100 MG CAPSULE PO SCH ×2 (08:07→21:37)
[2022-05-30] MEDS: LEVOTHYROXINE 25 MCG TABLET PO SCH (08:08)
[2022-05-30] MEDS: Olopatadine 0.1 % drops OS SCH (08:08)
[2022-05-30] MEDS: CARBOXYMETHYLCELLULOSE SODIUM 1 EACH DROPER.GEL OD SCH ×4 (08:09→21:37)
[2022-05-30] MEDS: LORazepam 0.5 MG TABLET PO SCH ×2 (08:17→21:35)
[2022-05-30] MEDS: DEXTROSE 5% IN WATER 1,000 ML IV SCH ×2 (08:17→17:16)
[2022-05-30] MEDS: HYDROmorphone 0.5 MG/0.5 ML SYRINGE IV PRN ×2 (09:43→14:03)
--- NOTE | 2022-05-30 10:16 | Operative Note ---
DATE OF OPERATION: 05/27/2022 PREOPERATIVE DIAGNOSIS: Left displaced femoral neck fracture. POSTOPERATIVE DIAGNOSIS: Left displaced femoral neck fracture, although probably subacute. PROCEDURE PERFORMED: Open treatment of the left femoral neck fracture with prosthetic hemiarthroplasty placing a Lito Accolade cemented, 132-degree, size 5 femoral stem; a 0 neck length with a 50 unipolar head. SURGEON: Chito Castillo M.D. DRYING MACHINE OPERATOR: Lena Tovar R.N. DRAINS: None. SPECIMEN: Femoral head, which was discarded ESTIMATED BLOOD LOSS: 100 mL. POSTOPERATIVE CONDITION: Fair. INDICATIONS FOR SURGERY: This is an 81-year-old male who has developmental delay and profound dementia, but who was previously reportedly ambulatory, who fell and had complaints of pain in his left hip. He was taken to the emergency department. CT scan was obtained, which showed a femoral neck fracture. Apparently, legal power of insurance attorney was contacted initially and they wished to proceed surgically. FINDINGS AT SURGERY: There was displaced femoral neck fracture. However, there was no fracture hematoma suggesting this was a subacute injury. Post implantation showed stable through range of motion. PROCEDURE IN DETAIL: The patient was profoundly demented and nonverbal. I did end up speaking with his sister and obtained verbal consent. Correct operative site was marked and the patient was taken to the operating room. General anesthesia was induced. He was carefully positioned in the right lateral decubitus position and then pressure points carefully padded. The left hip and lower extremity were carefully prepped and draped in normal sterile fashion. A timeout was performed verifying patient name, operative site, and plan. Ioban was used to cover the skin surface and then a standard posterolateral approach was made with a scalpel through skin and subcutaneous tissue. Hemostasis was obtained with Bovie cautery. IrriSept was irrigated. I then incised the IT band in line with the skin incision and a Charnley retractor was placed underneath. I used a lap sponge to sweep soft tissue off the short external rotators and then released these off of the posterior trochanter. Upon entering the joint, there was no significant hematoma. I T'd the capsule along the femoral neck and head up to the acetabular rim. A freshening neck cut was made with the saw and then a corkscrew was placed in the femoral head and then this was levered out. It did not fit through a size 50, but it did fit through a 51. Bone fragments were removed from the acetabulum and then I trialed a 50, which fit well. We went ahead and exposed the proximal femur. A box osteotome was used to gain canal entry. A handheld awl was used to identify canal trajectory and then a lateralizer was used, and we began sequentially broaching up to a size 5, which seated just above the neck cut by about a millimeter. I trialed with a -4. This reduced easily and leg lengths seemed equal. The hip seemed stable with all ranges of motion. We went ahead and removed the trial implant. A size 5 cemented stem was opened. Cement was mixed. I placed a cement restrictor distally. A canal brush was used to prepare and then we suctioned the canal dry. We then injected cement. I pressurized and then the stem was impacted until it seated on the neck cut. Excess cement was removed. Everything was held still until the cement had fully hardened, I then trialed a 0 neck length, reduced the hip. This had better tension with maybe some slight limb lengthening. Due to his dementia and he was fairly uncontrollable prior to surgery, my concern for dislocation was higher than possible limb lengthening, so we chose to go with a standard neck length. The standard neck was opened and the 50 head ball assembled. The stem trunnion was cleaned and dried and then the head ball was impacted. The hip was reduced. We took it through range of motion. It was very stable. We then placed the leg on a padded nail. We filled the joint with IrriSept, after a minute pulse lavaged with saline copiously. A #5 FiberWire [id number] was used to repair the posterior capsule. A #1 Vicryl was used to repair the IT band in two running stitches. IrriSept was irrigated again, after a minute pulse lavaged, and then a 2-0 Monocryl was used for subcutaneous and alex for skin. Local anesthetic was injected. Sterile dressing was applied. The patient was then turned supine, awakened, extubated, and transferred to recovery in fair condition. JACINDA:rell Job ID: [id number] Doc ID: [id number] Chito Castillo MD
[2022-05-30] MEDS: OLANZapine 10 MG VIAL IM PRN ×2 (10:20→21:49)
[2022-05-30] MEDS: QUEtiapine 25 MG TABLET PO SCH (17:16)
[2022-05-30] MEDS: PRAZOSIN 1 MG CAPSULE PO SCH (21:34)
[2022-05-30] MEDS: DIVALPROEX 125 MG CAP.SPRINK PO SCH (21:34)
[2022-05-30] MEDS: SENNOSIDES 1 TABLET PO SCH (21:35)
[2022-05-30] MEDS: HYDROcodone/APAP 5/325MG TABLET PO PRN (21:37)
[2022-05-31] MEDS: ACETAMINOPHEN 1,000 MG/100 ML BAG IV SCH ×4 (01:20→23:53)
[2022-05-31] MEDS: DEXTROSE 5% IN WATER 1,000 ML IV SCH ×2 (02:03→12:58)
[2022-05-31] MEDS: HYDROmorphone 0.5 MG/0.5 ML SYRINGE IV PRN ×2 (02:07→05:00)
[2022-05-31] MEDS: 0.9 % SODIUM CHLORIDE 10 ML SYRINGE IV SCH ×3 (05:01→21:02)
[2022-05-31] MEDS: OLANZapine 10 MG VIAL IM PRN (05:39)
[2022-05-31] MEDS: SERTRALINE 100 MG TABLET PO SCH (08:52)
[2022-05-31] MEDS: MELOXICAM 7.5 MG TABLET PO SCH (08:52)
[2022-05-31] MEDS: DOCUSATE SODIUM 100 MG CAPSULE PO SCH ×2 (08:52→20:56)
[2022-05-31] MEDS: LORazepam 0.5 MG TABLET PO SCH (08:52)
[2022-05-31] MEDS: amLODIPine 10 MG TABLET PO SCH (08:52)
[2022-05-31] MEDS: OMEPRAZOLE 20 MG CAPSULE PO SCH (08:52)
[2022-05-31] MEDS: LEVOTHYROXINE 25 MCG TABLET PO SCH (08:53)
[2022-05-31] MEDS: ENOXAPARIN 40 MG/0.4 ML SYRINGE SQ SCH (08:53)
[2022-05-31] MEDS: PHENYTOIN SOD 100 MG CAPSULE PO SCH ×2 (08:53→20:54)
[2022-05-31] MEDS: CARBOXYMETHYLCELLULOSE SODIUM 1 EACH DROPER.GEL OD SCH ×4 (08:53→20:55)
[2022-05-31] MEDS: MEMANTINE 10 MG TABLET PO SCH ×2 (08:54→20:55)
--- NOTE | 2022-05-31 12:12 | Internal Med Progress Note ---
SUBJECTIVE Subjective Patient information: Note initiated : 05/31/22 at 12:06 pm Service Date, if different from initiated Date: [] Patient: Guilherme Yepez 81 y/o M admitted on 05/27/22 for FALL. Chief Complaint: [] Principal diagnosis: hip fx and confusion Interval history: Mr. Yepez is a 81-year-old male with a history of hypertension, hypothyroidism, seizure disorder, urinary retention and advanced dementia who lives in an assisted living facility and was brought into the emergency department for evaluation after being found down by the assisted living staff. Patient was unable to provide a history due to advanced dementia. The patient was found to have a left mildly displaced oblique subcapital fracture of the left hip as well as marked prostate enlargement resulting in massive urinary bladder distention and bilateral hydronephrosis and hydroureter. Orthopedic surgery was consulted, recommended surgical correction for the hip fracture. A Winslow catheter was placed in the emergency department. Hospital medicine was consulted for admission. I discussed the patient with his sister, Barbara, who decided that the patient's CODE STATUS would be DNR/DNI. 05/28 Patient had ORIF of the left hip fracture yesterday. Postoperatively the patient was severely agitated and not redirectable, the patient was given Zyprexa IM. This morning the patient is resting comfortably, continues with Winslow catheter. Urinalysis was not suggestive of UTI. 05/29 Patient had an assisted fall last night, no injuries sustained. Patient received Zyprexa last night, resting comfortably this morning.. Pharmacy completed home medication reconciliation and says the patient was taking Ativan 0.5 p.o. mg 3 times daily prior to admission. Will wean off Ativan to avoid benzodiazepine withdrawal. Added Seroquel 25 mg at bedtime. 05/30 Vital stable overnight, hemoglobin 8.0 today, will recheck this afternoon. Leukocytosis resolved. Sodium 150, started D5 IV fluid and will recheck sodium in the afternoon. 07/31-patient remains encephalopathic. Hemoglobin 8.7, intermittently cooperative however was agitated overnight requiring Zyprexa, DC Ativan, continue prazosin/anxiolytics, normal WBC, no fever chills, sodium 145, possible placement in 24 to 48 hours Constitutional Vitals: Vital Signs Temp Pulse Resp BP Pulse Ox O2 Del Method O2 Flow Rate 97.7 F 73 18 189/80 93 2 05/31/22 03:45 05/31/22 08:00 05/31/22 08:00 05/31/22 08:00 05/31/22 03:45 05/31/22 08:00 05/29/22 11:29 Period Temp Pulse Resp BP Sys/Oliveros Pulse Ox O2 Del Method O2 Flow Rate Last 24 Hr 97.6 F-98.7 F 60-80 12-18 157-189/66-86 93-94 Room Air-Room Air Intake and Output 05/31/22 05/31/22 05/31/22 03:59 11:59 19:59 Intake Total 978 150 Output Total 200 0 Balance 778 150 Weight 69.763 kg confused/delirious Nonlabored breathing room air Anxious daily agitated No lymphedema Intake & Output: Intake & Output 05/31/22 05/31/22 05/31/22 03:59 11:59 19:59 Intake Total 978 150 Output Total 200 0 Balance 778 150 Weight 69.763 kg Intake: IV 978 100 Dextrose 5% in Water 1,000 ml @ 878 100 mls/hr IV .Q10H [facility] Rx#: [id number] Oral 50 Output: Urine Catheter Amount 200 Void Amount 0 Other: Urine Color Dark Lena OBJ DATA Labs CBC & Chem 7: 05/30/22 14:16 05/30/22 14:16 Labs: Abnormal Lab Results 05/30/22 05/30/22 05/30/22 14:16 05:57 05:56 WBC RBC 2.59 L Hgb 8.7 L 8.0 L Hct 24.0 L Plt Count Immature Gran % (Auto) 0.6 H Neut % (Auto) Lymph % (Auto) 11.2 L Lymph # (Auto) 0.98 L [place] # (Auto) Immature Gran # Absolute Neutrophils Sodium 150 H Chloride 111 H BUN Glucose Calcium Phosphorus 2.0 L AST 90 H Lactate Dehydrogenase 440 H Total Protein Triglycerides 175 H 05/29/22 05/29/22 08:09 08:09 WBC 12.1 H RBC 2.60 L Hgb 8.1 L Hct 24.2 L Plt Count 132 L Immature Gran % (Auto) 0.6 H Neut % (Auto) 80.7 H Lymph % (Auto) 8.5 L Lymph # (Auto) 1.03 L [place] # (Auto) 0.91 H Immature Gran # 0.07 H Absolute Neutrophils 9.73 H Sodium Chloride BUN 28 H Glucose 112 H Calcium 8.5 L Phosphorus AST 103 H Lactate Dehydrogenase 478 H Total Protein 5.7 L Triglycerides 183 H Meds: Medications Hydrocodone Bitart/Acetaminophen (Hydrocodone/Apap 5/325mg Tablet) 1 tab PO Q4HP PRN; Protocol PRN Reason: Per Pain Protocol Last Admin: 05/30/22 21:37 Dose: 1 tab Amlodipine Besylate (Amlodipine 10 Mg Tablet) 10 mg PO DAILY [facility] Last Admin: 05/31/22 08:52 Dose: 10 mg Artificial Tears (Carboxymethylcellulose Sodium 1 Each Droper.Gel) 0 each OD QID [facility] Last Admin: 05/31/22 08:53 Dose: 1 each Divalproex Sodium (Divalproex 125 Mg Cap.Sprink) 500 mg PO HS [facility] Last Admin: 05/30/22 21:34 Dose: 500 mg Docusate Sodium (Docusate Sodium 100 Mg Capsule) 100 mg PO BID [facility] Last Admin: 05/31/22 08:52 Dose: 100 mg Enoxaparin Sodium (Enoxaparin 40 Mg/0.4 Ml Syringe) 40 mg SQ DAILY [facility] Last Admin: 05/31/22 08:53 Dose: 40 mg Hydromorphone HCl (Hydromorphone 0.5 Mg/0.5 Ml Syringe) 0.5 mg IV Q2HP PRN; Protocol PRN Reason: Per Pain Protocol Last Admin: 05/31/22 05:00 Dose: 0.5 mg Acetaminophen (Ofirmev) 1,000 mg in 100 mls @ 200 mls/hr IV Q8H [facility]; Protocol Last Infusion: 05/31/22 09:30 Dose: Infused Dextrose (Dextrose 5% In Water) 1,000 mls @ 100 mls/hr IV .Q10H [facility] Last Admin: 05/31/22 02:03 Dose: 100 mls/hr Levothyroxine Sodium (Levothyroxine 25 Mcg Tablet) 25 mcg PO ACB [facility] Last Admin: 05/31/22 08:53 Dose: 25 mcg Lorazepam (Lorazepam 0.5 Mg Tablet) 0.25 mg PO BID [facility] Last Admin: 05/31/22 08:52 Dose: 0.25 mg Melatonin (Melatonin 3 Mg Tablet) 3 mg PO HSP [facility] Meloxicam (Meloxicam 7.5 Mg Tablet) 15 mg PO DAILY [facility] Last Admin: 05/31/22 08:52 Dose: 15 mg Memantine (Memantine 10 Mg Tablet) 5 mg PO BID [facility] Last Admin: 05/31/22 08:54 Dose: 5 mg Olanzapine (Olanzapine 10 Mg Vial) 5 mg IM Q6HP PRN PRN Reason: Severe agitation Last Admin: 05/31/22 05:39 Dose: 5 mg Omeprazole (Omeprazole 20 Mg Capsule) 20 mg PO ACB [facility] Last Admin: 05/31/22 08:52 Dose: 20 mg Ondansetron HCl (Ondansetron 4 Mg/2 Ml Vial) 4 mg IV Q6HP PRN PRN Reason: Nausea And Vomiting Phenytoin Sodium (Phenytoin Sod 100 Mg Capsule) 100 mg PO DAILY [facility] Last Admin: 05/31/22 08:53 Dose: 100 mg Phenytoin Sodium (Phenytoin Sod 100 Mg Capsule) 200 mg PO [facility] Last Admin: 05/30/22 21:36 Dose: 200 mg Prazosin HCl (Prazosin 1 Mg Capsule) 1 mg PO QHS [facility] Last Admin: 05/30/22 21:34 Dose: 1 mg Quetiapine Fumarate (Quetiapine 25 Mg Tablet) 25 mg PO DAILY@1800 [facility] Last Admin: 05/30/22 17:16 Dose: 25 mg Senna (Sennosides 1 Tablet) 2 tab PO [facility] Last Admin: 05/30/22 21:35 Dose: 2 tab Sertraline HCl (Sertraline 100 Mg Tablet) 150 mg PO QAM [facility] Last Admin: 05/31/22 08:52 Dose: 150 mg Sodium Chloride (0.9 % Sodium Chloride 10 Ml Syringe) 10 ml IV Q8 [facility] Last Admin: 05/31/22 05:01 Dose: Not Given A/P Narrative A/P Narrative: Assessment: 81-year-old male with a history of hypertension, hypothyroidism, seizure disorder, urinary retention and advanced dementia who lives in an assisted living facility who was found to have a left subcapital femur fracture after an unwitnessed fall. The patient underwent ORIF of the femur fracture on 05/27/2022. The postoperative course was complicated by intermittent behavioral disturbances and severe agitation. * Left subcapital femur fracture status post ORIF 05/27/2022. Ongoing postop care per orthopedics * Advanced dementia with intermittent psychosis worsened during hospitalization, requiring anxiolytic/antipsychotic. * Chronic anemia hemoglobin 8.7, no indication for transfusion * Mild hyponatremia water replacement * History of hypertension on amlodipine * Anxiety disorder on sertraline, DC lorazepam * History of seizure disorder on phenytoin/Depakote * Pain management hydrocodone * Hypothyroidism continue thyroxine * GERD continue PPI * Urinary tension bilateral hydronephrosis/hydroureter * Plan * Encourage oral fluids/nutrition support * Frequent reorientation/bright light/stop Ativan * Seroquel at bedtime/ as needed Zyprexa * Pre-existing medical condition management as above * Continue Winslow's catheter for urine retention * DVT prophylaxis: Lovenox * CODE STATUS: DNR/DNI * Disposition: Probably SNF versus return to assisted living facility with home health. If the patient requires a Winslow catheter at discharge for urinary retention, recommend urology referral. Consider hospice if the patient does not recover well after surgery. Time Spent With Patient Time: Total time spent is greater than 50% in coordination of care (as documented) at patient's floor/unit and/or counseling patient: Total time spent with greater than 50% in coordination of care (as documented) at patient's floor/unit and/or counseling patient:: 25 - 35 minutes
--- NOTE | 2022-05-31 13:03 | Urology Consult Note ---
HPI Date of Consult Consult Date: 05/31/22 Primary Care Provider: Daniel Hartman PA-C Consult Narrative Patient Information: Note initiated : 05/31/22 at 12:54 pm Service Date, if different from initiated Date: [] Patient: Guilherme Yepez 81 y/o M admitted on 05/27/22 for FALL. Chief Complaint: [] 81-year-old gentleman who I previously seen in my office. Around the beginning of April patient presented to the emergency room in acute urinary retention and a Winslow catheter was placed. Patient was discharged back to his facility with a Winslow catheter in place. At his retirement facility patient had pulled out his catheter and was voiding well. Patient was brought to the emergency room on 05/27/2022 after being found down by the staff at his assisted living. Patient was found to have a left hip fracture. On 05/27/2022 he underwent repair of his left femoral neck fracture with a hemiarthroplasty. He was transferred back to the floor with a Winslow catheter in place. Patient is remained somewhat confused and at times combative, last night he pulled his Winslow catheter out with the balloon inflated. Patient was watched overnight and did not void. This morning the bladder scan was performed by nursing staff and patient was found to have approximately 400 cc in his bladder. Nursing staff was unable to place a Winslow catheter. Urologic consultation has been requested for assistance in placement catheter Chief complaint: Urinary retention, traumatic cath removal, difficult cath placement Reason for consult: Difficult cath placement cc:: CC: Chito Castillo Review of Systems ROS unobtainable: due to mental status PFSH PFSH All Active Problems Fracture of hip, left, closed (Acute) Acute urinary retention (Acute) Epilepsy (Chronic) Hyperlipidemia (Chronic) Hypertension, essential (Chronic) Profound developmental delay (Chronic) Balance problems (Acute) Dysphagia (Chronic) Urinary tract infection (Acute) Knee sprain (Acute) Constipation (Acute) Intellectual disability (Acute) Cognitive decline (Acute) Alzheimer's dementia with behavioral disturbance (Acute) Fall from ground level (Acute) Laceration (Acute) Conjunctivitis (Acute) Medicare annual wellness visit, subsequent (Acute) Dizziness (Acute) Grief (Acute) Anxiety (Acute) Chest pain (Acute) Grief reaction with prolonged bereavement (Acute) Alzheimer disease (Acute) Dementia (Acute) Irritation of both eyes (Acute) Suicidal ideation (Acute) Acute urinary retention (Acute) History of dementia (Acute) Medical History Alzheimer disease Chest pain Dysphagia Epilepsy 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 Lund Family History Father Cardiac disease Social History smoking status: Never smoker alcohol intake frequency: does not drink substance use type: does not use MEDS/ALLERGIES Home Medications and Allergies Home Medications Medication Instructions Recorded Confirmed Type 4 post cane #1 ea 07/14/16 05/28/22 Rx FWW with seat #1 ea 11/20/18 05/28/22 Rx Handicap Placard #1 ea 06/19/19 05/28/22 Rx dtcynusl-sho-hcowo acid 0.4 See Rx Instructions .Route 06/15/20 05/28/22 Rx mg-lycopene 300 mcg-lutein 250 mcg .COMPLEX #31 tabs tablet ([employer]) amlodipine 10 mg tablet See Rx Instructions .Route 03/22/21 05/28/22 Rx .COMPLEX #90 tabs ferrous sulfate 325 mg (65 mg 325 mg PO QDAY #90 tabs 03/22/21 05/28/22 Rx iron) tablet memantine 5 mg tablet 5 mg PO BID #180 tabs 03/22/21 05/28/22 Rx omeprazole 20 mg capsule,delayed 20 mg PO QAM #90 caps 03/22/21 05/28/22 Rx release phenytoin sodium extended 100 mg See Dose Instructions .Route 03/22/21 05/28/22 Rx capsule .COMPLEX #270 caps ziprasidone HCl 20 mg capsule 20 mg PO BID Dementia/anxiety #180 03/22/21 05/28/22 Rx caps levothyroxine 25 mcg tablet 25 mcg PO QDAY #90 tabs 10/18/21 05/28/22 Rx acetaminophen 325 mg tablet 325 mg PO BID PRN pain #60 tabs 11/30/21 05/28/22 Rx artificial tears(hypromellose) 0.5 2 drp ophthalmic (eye) QID dry 04/06/22 05/28/22 Rx % eye drops eyes #30 mL lorazepam 0.5 mg tablet 0.5 mg PO TID PRN agitation #90 05/09/22 05/28/22 Rx tabs lorazepam 0.5 mg tablet 0.5 mg PO TID 05/11/22 05/28/22 History meloxicam 15 mg tablet 15 mg PO QDAY 05/11/22 05/28/22 History prazosin 1 mg capsule 1 mg PO QHS 05/11/22 05/28/22 History sertraline 100 mg tablet 150 mg PO QAM 05/11/22 05/28/22 History sm dry eye relief 05/11/22 05/28/22 History olopatadine 0.1 % eye drops 2 drp ophthalmic (eye) BID #5 mL 05/18/22 05/28/22 Rx divalproex 500 mg tablet,delayed 500 mg PO HS 05/28/22 05/28/22 History release hydrocodone 5 mg-acetaminophen 325 1 tab PO Q4H PRN Pain #40 tabs 05/31/22 Rx mg tablet Allergies Allergy/AdvReac Type Severity Reaction Status Date / Time No Known Drug Allergies Allergy Verified 05/27/22 18:46 Physical Examination Vital Signs Vital signs: Temp Pulse Resp BP Pulse Ox O2 Del Method O2 Flow Rate 97.7 F 73 18 189/80 93 2 05/31/22 03:45 05/31/22 08:00 05/31/22 08:00 05/31/22 08:00 05/31/22 03:45 05/31/22 08:00 05/29/22 11:29 General physical appearance General physical exam: no distress and cachectic Head Head exam IM: Present atraumatic Respiratory Respiratory exam: normal respiratory effort Abdomen Abdomen: Present soft and non tender; Absent masses, guarding, rigid or distended Genitourinary Genitourinary (Male): Present other (There is a Winslow catheter in the urethra draining a small amount of blood. Balloon is not inflated on the catheter. Rest of genitourinary exam is normal.) Integumentary Integumentary: Present no rash Neurologic Neurologic: Present disoriented and confused Musculoskeletal Musculoskeletal: Present other (Dry dressing on left hip) Results Labs Result diagrams: 05/30/22 14:16 05/30/22 14:16 Labs: Abnormal lab results 05/30/22 Range/Units 14:16 Hgb 8.7 L (13.7-17.5) g/dL Diabetes panel 05/30/22 Range/Units 14:16 Sodium 145 (133-145) mmol/L Pituitary panel 05/30/22 Range/Units 14:16 Sodium 145 (133-145) mmol/L Adrenal panel 05/30/22 Range/Units 14:16 Sodium 145 (133-145) mmol/L All other labs normal. A/P Assessment and plan (1) Acute urinary retention: Plan: The current catheter was removed. Genitalia were prepped with Betadine. Lidocaine was injected via the urethra. A 16 [place] coud catheter was easily passed into the patient's bladder with very light pink urine return. Balloon was inflated and connected to Winslow catheter drainage. I would continue the Winslow catheter until the patient is recovered from his recent surgery Status: Acute Time Spent With Patient Time: Total time spent is greater than 50% in coordination of care (as documented) at patient's floor/unit and/or counseling patient:
[2022-05-31] MEDS: QUEtiapine 25 MG TABLET PO SCH (17:50)
--- NOTE | 2022-05-31 20:12 | Tele-Psychiatry Consult Note ---
Consult Note Narrative: Name: Guilherme WilksonDOB: 1940 DateandTime: 05/31/2022 10:05:38 PM Location of the patient: [facility] IPLocation of the doctor: Sergio Length of consult: 60min This evaluation was conducted via video telepsychiatry with the assistance of onsite staff Reason for consult: agitation/med recs Requested by: Emily History of Present Illness: 81y/o male with reported profound IDD and dementia was found down by staff at his CASE. Pt required surgery and has been very agitated and requiring prn zyprexa. PT was not able to tell me why he was at the hospital. HE said he sleeps alot and has a good appetite. HE denied thoughts of harm to self or others. HE denied feeling unsafe. I was not able to understand his response to asking if he hears voices or sees things. HE said he did not know if he ever used drugs or alcohol. HE gave consent to speak with his sister but did not provide contact information. I called the primary contact listed on his chart but the number did not go through. Collateral Contacted: YesCollateral name:Dona Fernández phone number:[phone] relationship to the patient:?sister Sleep issues?: No Psychiatric History/Treatment History: Past diagnoses: Dementia, Depression, IDD per records Hospitalizations: Unknown-NA Current Treatment:YesMedication management:YesMedications:Therapy:No Suicide Assessment: PSS-3: 1) Over the past 2 weeks have you felt down, depressed or hopeless?Unknown-NA 2) Over the past 2 weeks have you had thoughts of killing yourself?No 3) Have you ever in your life attempted to kill yourself?No Within the past 6 months? [facility] Safety Assessment: Risk Factors Stressors: recent fall with injury Attempts/Self-injury: No Impulsivity:Unknown-NA Drug/Alcohol History:Unknown-NA Trauma History:No Access to firearms:No HI/Violence/Property destruction:YesDescription: Legal: Unknown-NA Family Psych History:Unknown-NA Family History of suicide:Unknown-NA Protective Factors: Can handle stress well?No Yarsani?Unknown-NA External: Social supports/ Therapeutic relationships: Unknown-NA Relationship history: single Living situation: [facility] Employment: No Education: unknown Responsibility to family/children/work: No Future orientation:Unknown-NA Health History: Medical History: Alzheimer disease Chest pain Dysphagia Epilepsy 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 Hyperlipidemia Hypertension, essential Medicare annual wellness visit, subsequent Profound developmental delay Medications & Freq: Hydrocodone Bitart/Acetaminophen (Hydrocodone/Apap 5/325mg Tablet) 1 tab PO Q4HP PRN; Protocol PRN Reason: Per Pain Protocol Last Admin: 05/30/22 21:37 Dose: 1 tab Amlodipine Besylate (Amlodipine 10 Mg Tablet) 10 mg PO DAILY [facility] Last Admin: 05/31/22 08:52 Dose: 10 mg Artificial Tears (Carboxymethylcellulose Sodium 1 Each Droper.Gel) 0 each OD QID [facility] Last Admin: 05/31/22 08:53 Dose: 1 each Divalproex Sodium (Divalproex 125 Mg Cap.Sprink) 500 mg PO HS [facility] Last Admin: 05/30/22 21:34 Dose: 500 mg Docusate Sodium (Docusate Sodium 100 Mg Capsule) 100 mg PO BID [facility] Last Admin: 05/31/22 08:52 Dose: 100 mg Enoxaparin Sodium (Enoxaparin 40 Mg/0.4 Ml Syringe) 40 mg SQ DAILY [facility] Last Admin: 05/31/22 08:53 Dose: 40 mg Hydromorphone HCl (Hydromorphone 0.5 Mg/0.5 Ml Syringe) 0.5 mg IV Q2HP PRN; Protocol PRN Reason: Per Pain Protocol Last Admin: 05/31/22 05:00 Dose: 0.5 mg Acetaminophen (Ofirmev) 1, 000 mg in 100 mls @ 200 mls/hr IV Q8H BENNIE; Protocol Last Infusion: 05/31/22 09:30 Dose: Infused Dextrose (Dextrose 5% In Water) 1, 000 mls @ 100 mls/hr IV .Q10H [facility] Last Admin: 05/31/22 02:03 Dose: 100 mls/hr Levothyroxine Sodium (Levothyroxine 25 Mcg Tablet) 25 mcg PO ACB [facility] Last Admin: 05/31/22 08:53 Dose: 25 mcg Lorazepam (Lorazepam 0.5 Mg Tablet) 0.25 mg PO BID [facility] Last Admin: 05/31/22 08:52 Dose: 0.25 mg Melatonin (Melatonin 3 Mg Tablet) 3 mg PO HSP [facility] Meloxicam (Meloxicam 7.5 Mg Tablet) 15 mg PO DAILY [facility] Last Admin: 05/31/22 08:52 Dose: 15 mg Memantine (Memantine 10 Mg Tablet) 5 mg PO BID [facility] Last Admin: 05/31/22 08:54 Dose: 5 mg Olanzapine (Olanzapine 10 Mg Vial) 5 mg IM Q6HP PRN PRN Reason: Severe agitation Last Admin: 05/31/22 05:39 Dose: 5 mg Omeprazole (Omeprazole 20 Mg Capsule) 20 mg PO ACB [facility] Last Admin: 05/31/22 08:52 Dose: 20 mg Ondansetron HCl (Ondansetron 4 Mg/2 Ml Vial) 4 mg IV Q6HP PRN PRN Reason: Nausea And Vomiting Phenytoin Sodium (Phenytoin Sod 100 Mg Capsule) 100 mg PO DAILY [facility] Last Admin: 05/31/22 08:53 Dose: 100 mg Phenytoin Sodium (Phenytoin Sod 100 Mg Capsule) 200 mg PO [facility] Last Admin: 05/30/22 21:36 Dose: 200 mg Prazosin HCl (Prazosin 1 Mg Capsule) 1 mg PO QHS [facility] Last Admin: 05/30/22 21:34 Dose: 1 mg Quetiapine Fumarate (Quetiapine 25 Mg Tablet) 25 mg PO DAILY@1800 [facility] Last Admin: 05/30/22 17:16 Dose: 25 mg Senna (Sennosides 1 Tablet) 2 tab PO [facility] Last Admin: 05/30/22 21:35 Dose: 2 tab Sertraline HCl (Sertraline 100 Mg Tablet) 150 mg PO QAM [facility] Last Admin: 05/31/22 08:52 Dose: 150 mg Sodium Chloride (0.9 % Sodium Chloride 10 Ml Syringe) 10 ml IV Q8 [facility] Last Admin: 05/31/22 05:01 Dose: Not Given Allergies: NKDA Mental Status Exam: Appearance and Attire:Normal Psychomotor agitation:No abnormality Attitude and behavior:Cooperative Speech:Slow, Paucity of speech Mood:Euthymic Affect:Constricted Thought process:Vague, minimal conversation Thought content:No abnormality Perception: Intel:Severe intellectual disability Abstract:[place] Language:unable to assess Orientation:not oriented Sense:Drowsy Knowledge:unable to assess Memory:unable to assess Insight:Lack of awareness of problems, Severe impairment Judgement:Severe impairment, Impaired in self care Gait:Did not observe Impression/Risk Assessment: Current Suicide Risk Elevated?No Current Violence Risk Elevated?Yes Issues with ability to care for self?Yes Summary: PT is a 81y/o wm with h/o dementia brought in from his senior living after a fall. PT required surgery and has been agitated and combative at times per staff. PT was not able to provide much history and I was not able to locate anyone for collateral. Request was for medication recommendations for agitation. Nursing report patient to be eating and sleeping okay. HE is being weaned off his ativan and prn zyprexa has been helpful per staff. Records show a h/o depression and patient is currently on Zoloft. HE has a sz d/o and is on antiepileptics. His speech is impoverished and he is not able to provide history, however he was calm and cooperative. Treatment recommendations as follows. 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 General Geriatric Precautions: Ensure that patient has prescription lenses/glasses and hearing aids (if applicable), speak slowly and clearly when communicating with patient, open window shades during the daytime, frequent re- orientation by staff and family members, sitting up and out of bed for short periods during daytime hours . Maintain consistent care staff as much as possible for familiarity. Create a calm atmosphere by limiting background noise of TV/radio, clearing clutter and maintain as consistent of routine as possible. Level of Care: continue current level of care Psychiatric Clearance: No Observation level 1:1 needed?: Yes Pharmacological:1. Agree with plan to discontinue Ativan as it may increase pt confusion and disorientation as well as lower seizure control and contribute to respiratory depression coupled with Zyprexa. 2. Start Seroquel 12.5mg po tid for mood lability and agitation 3. Continue Zyprexa 5mg po/im q 4h prn severe agitation. (hold if QTC over 500. current QTC 476) 4. Continue Zoloft 150mg po qd for depression Patient psychotic?No Therapy: supportive Follow up needed while in the hospital?: YesNumber of times:Please consult psych as needed for further mood stabilization Discussed plan with onsite steam conditioner filling: Yes Who Kristin Garcia/nurse
[2022-05-31] MEDS: PRAZOSIN 1 MG CAPSULE PO SCH (20:55)
[2022-05-31] MEDS: DIVALPROEX 125 MG CAP.SPRINK PO SCH (20:55)
[2022-05-31] MEDS: HYDROcodone/APAP 5/325MG TABLET PO PRN (20:55)
[2022-05-31] MEDS: SENNOSIDES 1 TABLET PO SCH (20:56)
[2022-06-01] MEDS: HYDROcodone/APAP 5/325MG TABLET PO PRN ×2 (02:04→15:57)
[2022-06-01] MEDS: 0.9 % SODIUM CHLORIDE 10 ML SYRINGE IV SCH ×3 (04:21→20:43)
--- NOTE | 2022-06-01 07:35 | Internal Med Progress Note ---
SUBJECTIVE Subjective Patient information: Note initiated : 06/01/22 at 7:30 am Service Date, if different from initiated Date: [] Patient: Guilherme Yepez 81 y/o M admitted on 05/27/22 for FALL. Chief Complaint: [] Principal diagnosis: hip fx and confusion Interval history: Mr. Yepez is a 81-year-old male with a history of hypertension, hypothyroidism, seizure disorder, urinary retention and advanced dementia who lives in an assisted living facility and was brought into the emergency department for evaluation after being found down by the assisted living staff. Patient was unable to provide a history due to advanced dementia. The patient was found to have a left mildly displaced oblique subcapital fracture of the left hip as well as marked prostate enlargement resulting in massive urinary bladder distention and bilateral hydronephrosis and hydroureter. Orthopedic surgery was consulted, recommended surgical correction for the hip fracture. A Winslow catheter was placed in the emergency department. Hospital medicine was consulted for admission. I discussed the patient with his sister, Barbara, who decided that the patient's CODE STATUS would be DNR/DNI. 05/28 Patient had ORIF of the left hip fracture yesterday. Postoperatively the patient was severely agitated and not redirectable, the patient was given Zyprexa IM. This morning the patient is resting comfortably, continues with Winslow catheter. Urinalysis was not suggestive of UTI. 05/29 Patient had an assisted fall last night, no injuries sustained. Patient received Zyprexa last night, resting comfortably this morning.. Pharmacy completed home medication reconciliation and says the patient was taking Ativan 0.5 p.o. mg 3 times daily prior to admission. Will wean off Ativan to avoid benzodiazepine withdrawal. Added Seroquel 25 mg at bedtime. 05/30 Vital stable overnight, hemoglobin 8.0 today, will recheck this afternoon. Leukocytosis resolved. Sodium 150, started D5 IV fluid and will recheck sodium in the afternoon. 07/31-patient remains encephalopathic. Hemoglobin 8.7, intermittently cooperative however was agitated overnight requiring Zyprexa, DC Ativan, continue prazosin/anxiolytics, normal WBC, no fever chills, sodium 145, possible placement in 24 to 48 hours 06/01-patient continues to be confused and delirious, telemetry psych consultation obtained. Psychiatry recommendations as below Pharmacological:1. Agree with plan to discontinue Ativan as it may increase pt confusion and disorientation as well as lower seizure control and contribute to respiratory depression coupled with Zyprexa. 2. Start Seroquel 12.5mg po tid for mood lability and agitation 3. Continue Zyprexa 5mg po/im q 4h prn severe agitation. (hold if QTC over 500. current QTC 476) 4. Continue Zoloft 150mg po qd for depression Otherwise no overnight events. No fever chills, encourage oral fluids/nutrition support. Anticipate discharge in 48 hours pending clinical improvement Constitutional Vitals: Vital Signs Temp Pulse Resp BP Pulse Ox O2 Del Method O2 Flow Rate 97.5 F 59 L 16 159/74 96 2 06/01/22 04:22 06/01/22 04:22 06/01/22 04:22 06/01/22 04:22 06/01/22 04:22 06/01/22 04:22 05/29/22 11:29 Period Temp Pulse Resp BP Sys/Oliveros Pulse Ox O2 Del Method O2 Flow Rate Last 24 Hr 97.4 F-98.6 F 59-88 16-18 140-189/63-87 93-97 Room Air-Room Air Intake and Output 05/31/22 06/01/22 06/01/22 19:59 03:59 11:59 Intake Total 1460 1100 100 Output Total 800 500 Balance 660 1100 -400 Weight 69.309 kg Intermittently confused/delirious but improved agitation, had a restful night Nonlabored breathing Winslow is draining clear urine Intake & Output: Intake & Output 05/31/22 06/01/22 06/01/22 19:59 03:59 11:59 Intake Total 1460 1100 100 Output Total 800 500 Balance 660 1100 -400 Weight 69.309 kg Intake: IV 1100 1100 Dextrose 5% in Water 1,000 ml @ 1000 1000 100 mls/hr IV .Q10H BENNIE Rx#: [id number] Oral 360 100 Output: Urine Catheter Amount 800 500 Other: Meal Lunch applesauce applesauce Percent of Meal Consumed 50% 100% 75% Feeding Ability Total Assistance Total Assistance Urine Appearance Small Blood Clots Clear Uretheral (Winslow) Hematuria Small Blood Clots Urine Color Dark Yellow Dark Yellow Blood Tinged Uretheral (Winslow) Dark Yellow Blood Tinged Urine Odor Normal Normal Uretheral (Winslow) Normal OBJ DATA Labs CBC & Chem 7: 05/30/22 14:16 05/30/22 14:16 Labs: Abnormal Lab Results 05/30/22 05/30/22 05/30/22 14:16 05:57 05:56 WBC RBC 2.59 L Hgb 8.7 L 8.0 L Hct 24.0 L Plt Count Immature Gran % (Auto) 0.6 H Neut % (Auto) Lymph % (Auto) 11.2 L Lymph # (Auto) 0.98 L [place] # (Auto) Immature Gran # Absolute Neutrophils Sodium 150 H Chloride 111 H BUN Glucose Calcium Phosphorus 2.0 L AST 90 H Lactate Dehydrogenase 440 H Total Protein Triglycerides 175 H 05/29/22 05/29/22 08:09 08:09 WBC 12.1 H RBC 2.60 L Hgb 8.1 L Hct 24.2 L Plt Count 132 L Immature Gran % (Auto) 0.6 H Neut % (Auto) 80.7 H Lymph % (Auto) 8.5 L Lymph # (Auto) 1.03 L [place] # (Auto) 0.91 H Immature Gran # 0.07 H Absolute Neutrophils 9.73 H Sodium Chloride BUN 28 H Glucose 112 H Calcium 8.5 L Phosphorus AST 103 H Lactate Dehydrogenase 478 H Total Protein 5.7 L Triglycerides 183 H Meds: Medications Hydrocodone Bitart/Acetaminophen (Hydrocodone/Apap 5/325mg Tablet) 1 tab PO Q4HP PRN; Protocol PRN Reason: Per Pain Protocol Last Admin: 06/01/22 02:04 Dose: 1 tab Amlodipine Besylate (Amlodipine 10 Mg Tablet) 10 mg PO DAILY [facility] Last Admin: 05/31/22 08:52 Dose: 10 mg Artificial Tears (Carboxymethylcellulose Sodium 1 Each Droper.Gel) 0 each OD QID [facility] Last Admin: 05/31/22 20:55 Dose: 1 each Divalproex Sodium (Divalproex 125 Mg Cap.Sprink) 500 mg PO HS [facility] Last Admin: 05/31/22 20:55 Dose: 500 mg Docusate Sodium (Docusate Sodium 100 Mg Capsule) 100 mg PO BID [facility] Last Admin: 05/31/22 20:56 Dose: 100 mg Enoxaparin Sodium (Enoxaparin 40 Mg/0.4 Ml Syringe) 40 mg SQ DAILY [facility] Last Admin: 05/31/22 08:53 Dose: 40 mg Hydromorphone HCl (Hydromorphone 0.5 Mg/0.5 Ml Syringe) 0.5 mg IV Q2HP PRN; Protocol PRN Reason: Per Pain Protocol Last Admin: 05/31/22 05:00 Dose: 0.5 mg Acetaminophen (Ofirmev) 1,000 mg in 100 mls @ 200 mls/hr IV Q8H [facility]; Protocol Last Infusion: 06/01/22 00:27 Dose: Infused Levothyroxine Sodium (Levothyroxine 25 Mcg Tablet) 25 mcg PO ACB [facility] Last Admin: 05/31/22 08:53 Dose: 25 mcg Melatonin (Melatonin 3 Mg Tablet) 3 mg PO HSP [facility] Meloxicam (Meloxicam 7.5 Mg Tablet) 15 mg PO DAILY [facility] Last Admin: 05/31/22 08:52 Dose: 15 mg Memantine (Memantine 10 Mg Tablet) 5 mg PO BID [facility] Last Admin: 05/31/22 20:55 Dose: 5 mg Olanzapine (Olanzapine 10 Mg Vial) 5 mg IM Q6HP PRN PRN Reason: Severe agitation Last Admin: 05/31/22 05:39 Dose: 5 mg Omeprazole (Omeprazole 20 Mg Capsule) 20 mg PO ACB [facility] Last Admin: 05/31/22 08:52 Dose: 20 mg Ondansetron HCl (Ondansetron 4 Mg/2 Ml Vial) 4 mg IV Q6HP PRN PRN Reason: Nausea And Vomiting Phenytoin Sodium (Phenytoin Sod 100 Mg Capsule) 100 mg PO DAILY [facility] Last Admin: 05/31/22 08:53 Dose: 100 mg Phenytoin Sodium (Phenytoin Sod 100 Mg Capsule) 200 mg PO HS [facility] Last Admin: 05/31/22 20:54 Dose: 200 mg Prazosin HCl (Prazosin 1 Mg Capsule) 1 mg PO QHS [facility] Last Admin: 05/31/22 20:55 Dose: 1 mg Quetiapine Fumarate (Quetiapine 25 Mg Tablet) 25 mg PO DAILY@1800 [facility] Last Admin: 05/31/22 17:50 Dose: 25 mg Senna (Sennosides 1 Tablet) 2 tab PO HS [facility] Last Admin: 05/31/22 20:56 Dose: 2 tab Sertraline HCl (Sertraline 100 Mg Tablet) 150 mg PO QAM [facility] Last Admin: 05/31/22 08:52 Dose: 150 mg Sodium Chloride (0.9 % Sodium Chloride 10 Ml Syringe) 10 ml IV Q8 [facility] Last Admin: 06/01/22 04:21 Dose: 10 ml A/P Narrative A/P Narrative: Assessment: 81-year-old male with a history of hypertension, hypothyroidism, seizure disorder, urinary retention and advanced dementia who lives in an assisted living facility who was found to have a left subcapital femur fracture after an unwitnessed fall. The patient underwent ORIF of the femur fracture on 05/27/2022. The postoperative course was complicated by intermittent behavioral disturbances and severe agitation. * Left subcapital femur fracture status post ORIF 05/27/2022. Ongoing postop care per orthopedics * Advanced dementia with intermittent psychosis worsened during hospitalization, requiring anxiolytic/antipsychotic. Per psychiatry recommendations now on Seroquel/as needed Zyprexa while continuing Zoloft, DC Ativan * Chronic anemia hemoglobin stable around 8 with no indication for transfusion * Mild hypernatremia, 145, encourage oral fluid * History of hypertension on amlodipine * Anxiety disorder on sertraline, off lorazepam * History of seizure disorder on phenytoin/Depakote * Pain management hydrocodone * Hypothyroidism continue thyroxine * GERD continue PPI * Urinary retension bilateral hydronephrosis/hydroureter, on urinary catheter Plan * Encourage oral fluids/nutrition support * Frequent reorientation/bright light * Antipsychotics per psychiatry recommendations * Pre-existing medical condition management as above * Continue Winslow's catheter for urine retention * DVT prophylaxis: Lovenox * CODE STATUS: DNR/DNI * Disposition: Probably SNF versus return to assisted living facility with home health. Will need urology referral. Consider hospice if the patient does not recover well after surgery. Time Spent With Patient Time: Total time spent is greater than 50% in coordination of care (as documented) at patient's floor/unit and/or counseling patient:
[2022-06-01] MEDS ORDERED: OLANZapine 10 MG VIAL IM PRN ×2 (07:37→22:52)
[2022-06-01] MEDS: LEVOTHYROXINE 25 MCG TABLET PO SCH (07:47)
[2022-06-01] MEDS: OMEPRAZOLE 20 MG CAPSULE PO SCH (07:47)
[2022-06-01] MEDS: ACETAMINOPHEN 1,000 MG/100 ML BAG IV SCH ×3 (07:48→23:20)
[2022-06-01] MEDS: PHENYTOIN SOD 100 MG CAPSULE PO SCH ×2 (09:26→20:42)
[2022-06-01] MEDS: DOCUSATE SODIUM 100 MG CAPSULE PO SCH ×2 (09:26→20:42)
[2022-06-01] MEDS: MELOXICAM 7.5 MG TABLET PO SCH (09:26)
[2022-06-01] MEDS: MEMANTINE 10 MG TABLET PO SCH ×2 (09:26→20:42)
[2022-06-01] MEDS: QUEtiapine 25 MG TABLET PO SCH ×3 (09:26→20:42)
[2022-06-01] MEDS: amLODIPine 10 MG TABLET PO SCH (09:27)
[2022-06-01] MEDS: CARBOXYMETHYLCELLULOSE SODIUM 1 EACH DROPER.GEL OD SCH ×4 (09:27→20:42)
[2022-06-01] MEDS: ENOXAPARIN 40 MG/0.4 ML SYRINGE SQ SCH (09:27)
[2022-06-01] MEDS: SERTRALINE 100 MG TABLET PO SCH (09:27)
[2022-06-01] MEDS ORDERED: OLANZapine 5 MG TABLET PO PRN (10:07)
[2022-06-01] MEDS ORDERED: OLANZapine 10 MG VIAL IM ONE (19:22)
[2022-06-01] MEDS ORDERED: OLANZapine 10 MG VIAL IM SCH (20:00)
[2022-06-01] MEDS: PRAZOSIN 1 MG CAPSULE PO SCH (20:41)
[2022-06-01] MEDS: DIVALPROEX 125 MG CAP.SPRINK PO SCH (20:42)
[2022-06-01] MEDS: SENNOSIDES 1 TABLET PO SCH (20:42)
[2022-06-01] MEDS: HYDROmorphone 0.5 MG/0.5 ML SYRINGE IV PRN (23:09)
[2022-06-02] MEDS: HYDROmorphone 0.5 MG/0.5 ML SYRINGE IV PRN (01:15)
[2022-06-02] MEDS ORDERED: OLANZapine 10 MG VIAL IM ONE (01:55)
[2022-06-02] MEDS: 0.9 % SODIUM CHLORIDE 10 ML SYRINGE IV SCH ×3 (05:23→20:27)
[2022-06-02 07:11] LABS: Basophils # (Auto) 0.05 K/mcL (0.00-0.30); Basophils % (Auto) 0.5 % (0.0-2.0); Eosinophils # (Auto) 0.54 K/mcL (0.00-0.70); Eosinophils % (Auto) 5.2 % (0.0-7.0); Hematocrit 24.5 % (40.1-51.0); Hemoglobin 7.9 g/dL (13.7-17.5); Lymphocytes # (Auto) 1.53 K/mcL (1.50-4.80); Lymphocytes % (Auto) 14.8 % (15.5-49.0); Mean Corpuscular HGB Conc 32.2 g/dL (31.0-36.0); Mean Platelet Volume 10.1 fL (8.8-12.5); Monocytes # (Auto) 0.89 K/mcL (0.10-0.90); Monocytes % (Auto) 8.6 % (1.0-12.0); Neutrophils % (Auto) 69.6 % (38.0-78.0); Platelet Count 234 K/mcL (140-440); RBC 2.58 M/mcL (4.63-6.08); Red Cell Distribution Width 13.7 % (11.5-14.5); WBC 10.3 K/mcL (4.5-11.0)
[2022-06-02 07:29] LABS: ALT/SGPT 41 U/L (<40); AST/SGOT 51 U/L (<40); Albumin/Globulin Ratio 1.2 (1.0-2.3); Alkaline Phosphatase 126 U/L (39-117); Bilirubin,Total 0.4 mg/dL (0.1-1.0); Blood Urea Nitrogen 18 mg/dL (8-23); Calcium 8.3 mg/dL (8.6-10.4); Carbon Dioxide 27 mmol/L (22-30); Chloride 103 mmol/L (96-108); Globulin 2.5 gm/dL (2.2-3.7); Glomerular Filtration Rate 78; Glucose 99 mg/dL (70-105)
[2022-06-02] MEDS: DOCUSATE SODIUM 100 MG CAPSULE PO SCH ×2 (08:30→20:24)
[2022-06-02] MEDS: amLODIPine 10 MG TABLET PO SCH (08:30)
[2022-06-02] MEDS: MEMANTINE 10 MG TABLET PO SCH ×2 (08:30→20:24)
[2022-06-02] MEDS: ENOXAPARIN 40 MG/0.4 ML SYRINGE SQ SCH (08:33)
[2022-06-02] MEDS: CARBOXYMETHYLCELLULOSE SODIUM 1 EACH DROPER.GEL OD SCH ×4 (08:33→20:27)
[2022-06-02] MEDS: QUEtiapine 25 MG TABLET PO SCH ×3 (08:34→20:25)
[2022-06-02] MEDS: LEVOTHYROXINE 25 MCG TABLET PO SCH (08:40)
[2022-06-02] MEDS: MELOXICAM 7.5 MG TABLET PO SCH (08:40)
[2022-06-02] MEDS: OMEPRAZOLE 20 MG CAPSULE PO SCH (08:50)
[2022-06-02] MEDS: PHENYTOIN SOD 100 MG CAPSULE PO SCH ×2 (08:53→20:24)
[2022-06-02] MEDS: SERTRALINE 100 MG TABLET PO SCH (08:55)
[2022-06-02] MEDS: ACETAMINOPHEN 1,000 MG/100 ML BAG IV SCH ×3 (09:53→23:45)
--- NOTE | 2022-06-02 15:40 | Internal Med Progress Note ---
SUBJECTIVE Subjective Patient information: Note initiated : 06/02/22 at 3:28 pm Service Date, if different from initiated Date: [] Patient: Guilherme Yepez 81 y/o M admitted on 05/27/22 for FALL. Chief Complaint: [] Principal diagnosis: hip fx and confusion Interval history: Mr. Yepez is a 81-year-old male with a history of hypertension, hypothyroidism, seizure disorder, urinary retention and advanced dementia who lives in an assisted living facility and was brought into the emergency department for evaluation after being found down by the assisted living staff. Patient was unable to provide a history due to advanced dementia. The patient was found to have a left mildly displaced oblique subcapital fracture of the left hip as well as marked prostate enlargement resulting in massive urinary bladder distention and bilateral hydronephrosis and hydroureter. Orthopedic surgery was consulted, recommended surgical correction for the hip fracture. A Winslow catheter was placed in the emergency department. Hospital medicine was consulted for admission. I discussed the patient with his sister, Barbara, who decided that the patient's CODE STATUS would be DNR/DNI. 05/28 Patient had ORIF of the left hip fracture yesterday. Postoperatively the patient was severely agitated and not redirectable, the patient was given Zyprexa IM. This morning the patient is resting comfortably, continues with Winslow catheter. Urinalysis was not suggestive of UTI. 05/29 Patient had an assisted fall last night, no injuries sustained. Patient received Zyprexa last night, resting comfortably this morning.. Pharmacy completed home medication reconciliation and says the patient was taking Ativan 0.5 p.o. mg 3 times daily prior to admission. Will wean off Ativan to avoid benzodiazepine withdrawal. Added Seroquel 25 mg at bedtime. 05/30 Vital stable overnight, hemoglobin 8.0 today, will recheck this afternoon. Leukocytosis resolved. Sodium 150, started D5 IV fluid and will recheck sodium in the afternoon. 07/31-patient remains encephalopathic. Hemoglobin 8.7, intermittently cooperative however was agitated overnight requiring Zyprexa, DC Ativan, continue prazosin/anxiolytics, normal WBC, no fever chills, sodium 145, possible placement in 24 to 48 hours 06/01-patient continues to be confused and delirious, telemetry psych consultation obtained. Psychiatry recommendations as below Pharmacological:1. Agree with plan to discontinue Ativan as it may increase pt confusion and disorientation as well as lower seizure control and contribute to respiratory depression coupled with Zyprexa. 2. Start Seroquel 12.5mg po tid for mood lability and agitation 3. Continue Zyprexa 5mg po/im q 4h prn severe agitation. (hold if QTC over 500. current QTC 476) 4. Continue Zoloft 150mg po qd for depression Otherwise no overnight events. No fever chills, encourage oral fluids/nutrition support. Anticipate discharge in 48 hours pending clinical improvement 08/02: Patient is reported to be agitated and acting out overnight. As a result, Zyprexa was changed back from p.o. to IM on as-needed basis for agitation and anxiety. Continue scheduled Seroquel and Zoloft. Continue hand mittens. Continue [place] and Dilaudid IV as needed for moderate and severe pain, respectively. Rest of the postsurgical care as per surgical team. Pending SNF placement. Constitutional Vitals: Vital Signs Temp Pulse Resp BP Pulse Ox O2 Del Method O2 Flow Rate 36.7 C 75 16 169/71 93 2 06/02/22 12:00 06/02/22 12:00 06/02/22 08:00 06/02/22 12:00 06/02/22 12:00 06/02/22 12:00 05/29/22 11:29 Period Temp Pulse Resp BP Sys/Oliveros Pulse Ox O2 Del Method O2 Flow Rate Last 24 Hr 36.4 C-36.8 C 66-75 16-18 149-188/71-87 92-96 Room Air-Room Air Intake and Output 06/02/22 06/02/22 06/02/22 03:59 11:59 19:59 Intake Total 460 100 Output Total 325 Balance 460 -225 Intake & Output: Intake & Output 06/02/22 06/02/22 06/02/22 03:59 11:59 19:59 Intake Total 460 100 Output Total 325 Balance 460 -225 Intake: Nourishment/Supplement quantity 240 (ml) IV 100 100 Oral 120 Output: Urine Catheter Amount 325 Other: Meal applesauce Percent of Meal Consumed 75% Feeding Ability Total Assistance Nourishment/Supplement name Ensure Urine Appearance Clear Uretheral (Winslow) Clear Urine Color Dark Yellow Uretheral (Winslow) Dark Yellow Urine Odor Normal Head Head exam: Present atraumatic and normal inspection Eye Eye exam: Present normal appearance ENT ENT exam: Present mucous membranes moist, normal exam and normal external ear exam Neck Neck exam: Present normal inspection Respiratory Respiratory exam: Present normal respiratory exam Cardiovascular Cardiovascular exam: Present normal rate and rhythm GI/Abdominal GI/Abdominal exam: Present normal bowel sounds Additional comments: Winslow catheter in place Extremities Exam Additional comments: Left lateral hip with surgical dressing Bilateral hand mittens in place Back Exam Back exam: Present normal inspection Neurological Exam Neurological exam: Present alert and altered; Absent oriented X3 Skin Skin exam: Present intact and warm OBJ DATA Labs CBC & Chem 7: 06/02/22 05:38 06/02/22 05:38 Labs: Abnormal Lab Results 06/02/22 06/02/22 05:38 05:38 RBC 2.58 L Hgb 7.9 L Hct 24.5 L Immature Gran % (Auto) 1.3 H Lymph % (Auto) 14.8 L Immature Gran # 0.13 H Calcium 8.3 L AST 51 H ALT 41 H Alkaline Phosphatase 126 H Total Protein 5.5 L Albumin 3.0 L Meds: Medications Hydrocodone Bitart/Acetaminophen (Hydrocodone/Apap 5/325mg Tablet) 1 tab PO Q4HP PRN; Protocol PRN Reason: Per Pain Protocol Last Admin: 06/01/22 15:57 Dose: 1 tab Amlodipine Besylate (Amlodipine 10 Mg Tablet) 10 mg PO DAILY [facility] Last Admin: 06/02/22 08:30 Dose: 10 mg Artificial Tears (Carboxymethylcellulose Sodium 1 Each Droper.Gel) 0 each OD QID [facility] Last Admin: 06/02/22 15:22 Dose: 1 each Divalproex Sodium (Divalproex 125 Mg Cap.Sprink) 500 mg PO HS [facility] Last Admin: 06/01/22 20:42 Dose: 500 mg Docusate Sodium (Docusate Sodium 100 Mg Capsule) 100 mg PO BID [facility] Last Admin: 06/02/22 08:30 Dose: 100 mg Enoxaparin Sodium (Enoxaparin 40 Mg/0.4 Ml Syringe) 40 mg SQ DAILY [facility] Last Admin: 06/02/22 08:33 Dose: 40 mg Hydromorphone HCl (Hydromorphone 0.5 Mg/0.5 Ml Syringe) 0.5 mg IV Q2HP PRN; Protocol PRN Reason: Per Pain Protocol Last Admin: 06/02/22 01:15 Dose: 0.5 mg Acetaminophen (Ofirmev) 1,000 mg in 100 mls @ 200 mls/hr IV Q8H [facility]; Protocol Last Infusion: 06/02/22 10:39 Dose: Infused Levothyroxine Sodium (Levothyroxine 25 Mcg Tablet) 25 mcg PO ACB [facility] Last Admin: 06/02/22 08:40 Dose: 25 mcg Melatonin (Melatonin 3 Mg Tablet) 3 mg PO HSP [facility] Meloxicam (Meloxicam 7.5 Mg Tablet) 15 mg PO DAILY [facility] Last Admin: 06/02/22 08:40 Dose: 15 mg Memantine (Memantine 10 Mg Tablet) 5 mg PO BID [facility] Last Admin: 06/02/22 08:30 Dose: 5 mg Olanzapine (Olanzapine 10 Mg Vial) 5 mg IM Q4HP PRN PRN Reason: Agitation Last Admin: 06/02/22 01:47 Dose: 5 mg Omeprazole (Omeprazole 20 Mg Capsule) 20 mg PO ACB [facility] Last Admin: 06/02/22 08:50 Dose: 20 mg Ondansetron HCl (Ondansetron 4 Mg/2 Ml Vial) 4 mg IV Q6HP PRN PRN Reason: Nausea And Vomiting Phenytoin Sodium (Phenytoin Sod 100 Mg Capsule) 100 mg PO DAILY [facility] Last Admin: 06/02/22 08:53 Dose: 100 mg Phenytoin Sodium (Phenytoin Sod 100 Mg Capsule) 200 mg PO HS [facility] Last Admin: 06/01/22 20:42 Dose: 200 mg Prazosin HCl (Prazosin 1 Mg Capsule) 1 mg PO QHS [facility] Last Admin: 06/01/22 20:41 Dose: 1 mg Quetiapine Fumarate (Quetiapine 25 Mg Tablet) 12.5 mg PO TID [facility] Last Admin: 06/02/22 08:34 Dose: 12.5 mg Senna (Sennosides 1 Tablet) 2 tab PO HS [facility] Last Admin: 06/01/22 20:42 Dose: 2 tab Sertraline HCl (Sertraline 100 Mg Tablet) 150 mg PO QAM [facility] Last Admin: 06/02/22 08:55 Dose: 150 mg Sodium Chloride (0.9 % Sodium Chloride 10 Ml Syringe) 10 ml IV Q8 [facility] Last Admin: 06/02/22 15:23 Dose: 10 ml A/P Assessment and plan (1) Alzheimer's dementia with behavioral disturbance: Status: Acute (2) Fracture of hip, left, closed: Status: Acute Qualifiers: Encounter type: initial encounter Qualified Code(s): S72.002A - Fracture of unspecified part of neck of left femur, initial encounter for closed fracture (3) Acute urinary retention: Status: Acute (4) Epilepsy: Status: Chronic Comment: Grand mal status Qualifiers: Epilepsy type: unspecified Status epilepticus: with status epilepticus Intractability: not intractable Qualified Code(s): G40.901 - Epilepsy, unspecified, not intractable, with status epilepticus (5) Postoperative anemia: Status: Acute (6) Hypothyroidism (acquired): Status: Acute Narrative A/P Narrative: Assessment and Plans: 1. Left hip fracture, s/p ORIF by Dr. Castillo on 05/31: Continue [place] and Dilaudid IV as needed for moderate and severe pain, respectively. Rest of the postsurgical care as per surgical team. Pending SNF placement. Lovenox for DVT ppx 2. Alzheimer's Dementia with behavioral disturbance: Hand mittens Memantine Zoloft Seroquel Zyprexa IM PRN agitation/behavioral disturbance 3. Urinary retention: s/p Winslow catheter replacement by Dr. Cadena on 05/[address] until patient is recovered from his recent surgery 4. h/o Epilepsy: Depakote Dilantin 5. Postoperative anemia: cbc w/ auto diff in the morning to trend H/H 6. Hypothyroidism: Continue thyroid replacement therapy GI ppx: Prilosec DVT ppx: Lovenox Code status: DNR Prognosis: guarded Disposition: inpatient med surg; pending SNF placement Time Spent With Patient Time: Total time spent is greater than 50% in coordination of care (as documented) at patient's floor/unit and/or counseling patient: Total time spent with greater than 50% in coordination of care (as documented) at patient's floor/unit and/or counseling patient:: 25 - 35 minutes
[2022-06-02] MEDS: HYDROcodone/APAP 5/325MG TABLET PO PRN (19:04)
[2022-06-02] MEDS: DIVALPROEX 125 MG CAP.SPRINK PO SCH (20:23)
[2022-06-02] MEDS: SENNOSIDES 1 TABLET PO SCH (20:24)
[2022-06-02] MEDS: PRAZOSIN 1 MG CAPSULE PO SCH (20:24)
[2022-06-03] MEDS: 0.9 % SODIUM CHLORIDE 10 ML SYRINGE IV SCH ×3 (04:38→21:29)
[2022-06-03 06:51] LABS: Basophils # (Auto) 0.05 K/mcL (0.00-0.30); Basophils % (Auto) 0.7 % (0.0-2.0); Eosinophils # (Auto) 0.42 K/mcL (0.00-0.70); Eosinophils % (Auto) 5.9 % (0.0-7.0); Hematocrit 25.6 % (40.1-51.0); Hemoglobin 8.5 g/dL (13.7-17.5); Lymphocytes # (Auto) 1.61 K/mcL (1.50-4.80); Lymphocytes % (Auto) 22.5 % (15.5-49.0); Mean Cell Volume 94.1 fL (80.0-100.0); Mean Corpuscular HGB Conc 33.2 g/dL (31.0-36.0); Mean Platelet Volume 9.6 fL (8.8-12.5); Monocytes # (Auto) 0.63 K/mcL (0.10-0.90); Monocytes % (Auto) 8.8 % (1.0-12.0); Neutrophils % (Auto) 60.8 % (38.0-78.0); Platelet Count 277 K/mcL (140-440); RBC 2.72 M/mcL (4.63-6.08); Red Cell Distribution Width 13.9 % (11.5-14.5); WBC 7.2 K/mcL (4.5-11.0)
[2022-06-03 06:58] LABS: ALT/SGPT 46 U/L (<40); AST/SGOT 54 U/L (<40); Albumin 3.3 gm/dL (3.2-5.2); Albumin/Globulin Ratio 1.4 (1.0-2.3); Alkaline Phosphatase 86 U/L (39-117); Bilirubin,Total 0.5 mg/dL (0.1-1.0); Blood Urea Nitrogen 18 mg/dL (8-23); Calcium 8.8 mg/dL (8.6-10.4); Carbon Dioxide 27 mmol/L (22-30); Chloride 102 mmol/L (96-108); Globulin 2.4 gm/dL (2.2-3.7); Glomerular Filtration Rate 69; Glucose 133 mg/dL (70-105)
[2022-06-03] MEDS: amLODIPine 10 MG TABLET PO SCH (07:48)
[2022-06-03] MEDS: SERTRALINE 100 MG TABLET PO SCH (07:48)
[2022-06-03] MEDS: ENOXAPARIN 40 MG/0.4 ML SYRINGE SQ SCH (07:48)
[2022-06-03] MEDS: DOCUSATE SODIUM 100 MG CAPSULE PO SCH ×2 (07:49→21:29)
[2022-06-03] MEDS: QUEtiapine 25 MG TABLET PO SCH ×3 (07:49→21:28)
[2022-06-03] MEDS: MEMANTINE 10 MG TABLET PO SCH ×2 (07:49→21:28)
[2022-06-03] MEDS: PHENYTOIN SOD 100 MG CAPSULE PO SCH ×2 (07:50→21:28)
[2022-06-03] MEDS: LEVOTHYROXINE 25 MCG TABLET PO SCH (07:50)
[2022-06-03] MEDS: ACETAMINOPHEN 1,000 MG/100 ML BAG IV SCH ×3 (07:50→23:18)
[2022-06-03] MEDS: CARBOXYMETHYLCELLULOSE SODIUM 1 EACH DROPER.GEL OD SCH ×4 (07:50→21:27)
[2022-06-03] MEDS: OMEPRAZOLE 20 MG CAPSULE PO SCH (07:50)
[2022-06-03] MEDS: MELOXICAM 7.5 MG TABLET PO SCH (07:50)
--- NOTE | 2022-06-03 12:00 | Internal Med Progress Note ---
SUBJECTIVE Subjective Patient information: Note initiated : 06/03/22 at 11:55 am Service Date, if different from initiated Date: [] Patient: Guilherme Yepez 81 y/o M admitted on 05/27/22 for FALL. Chief Complaint: [] Principal diagnosis: hip fx and confusion Interval history: Mr. Yepez is a 81-year-old male with a history of hypertension, hypothyroidism, seizure disorder, urinary retention and advanced dementia who lives in an assisted living facility and was brought into the emergency department for evaluation after being found down by the assisted living staff. Patient was unable to provide a history due to advanced dementia. The patient was found to have a left mildly displaced oblique subcapital fracture of the left hip as well as marked prostate enlargement resulting in massive urinary bladder distention and bilateral hydronephrosis and hydroureter. Orthopedic surgery was consulted, recommended surgical correction for the hip fracture. A Winslow catheter was placed in the emergency department. Hospital medicine was consulted for admission. I discussed the patient with his sister, Barbara, who decided that the patient's CODE STATUS would be DNR/DNI. 05/28 Patient had ORIF of the left hip fracture yesterday. Postoperatively the patient was severely agitated and not redirectable, the patient was given Zyprexa IM. This morning the patient is resting comfortably, continues with Winslow catheter. Urinalysis was not suggestive of UTI. 05/29 Patient had an assisted fall last night, no injuries sustained. Patient received Zyprexa last night, resting comfortably this morning.. Pharmacy completed home medication reconciliation and says the patient was taking Ativan 0.5 p.o. mg 3 times daily prior to admission. Will wean off Ativan to avoid benzodiazepine withdrawal. Added Seroquel 25 mg at bedtime. 05/30 Vital stable overnight, hemoglobin 8.0 today, will recheck this afternoon. Leukocytosis resolved. Sodium 150, started D5 IV fluid and will recheck sodium in the afternoon. 07/31-patient remains encephalopathic. Hemoglobin 8.7, intermittently cooperative however was agitated overnight requiring Zyprexa, DC Ativan, continue prazosin/anxiolytics, normal WBC, no fever chills, sodium 145, possible placement in 24 to 48 hours 06/01-patient continues to be confused and delirious, telemetry psych consultation obtained. Psychiatry recommendations as below Pharmacological:1. Agree with plan to discontinue Ativan as it may increase pt confusion and disorientation as well as lower seizure control and contribute to respiratory depression coupled with Zyprexa. 2. Start Seroquel 12.5mg po tid for mood lability and agitation 3. Continue Zyprexa 5mg po/im q 4h prn severe agitation. (hold if QTC over 500. current QTC 476) 4. Continue Zoloft 150mg po qd for depression Otherwise no overnight events. No fever chills, encourage oral fluids/nutrition support. Anticipate discharge in 48 hours pending clinical improvement 1124: Patient is reported to be agitated and acting out overnight. As a result, Zyprexa was changed back from p.o. to IM on as-needed basis for agitation and anxiety. Continue scheduled Seroquel and Zoloft. Continue hand mittens. Continue Wellford and Dilaudid IV as needed for moderate and severe pain, respectively. Rest of the postsurgical care as per surgical team. Pending SNF placement. 06/03: Patient reported to be less agitated last night compared to previously. Mittens removed. Zyprexa not required. No other major overnight events. Patient denies any left hip pain. He is complaining of nausea. Continue scheduled Seroquel and Zoloft. Zyprexa IM PRN agitation and anxiety. Continue Wellford and Dilaudid IV as needed for moderate and severe pain, respectively. Pending SNF placement on 06/06/22. Constitutional Vitals: Vital Signs Temp Pulse Resp BP Pulse Ox O2 Del Method O2 Flow Rate 36.8 C 73 16 127/65 96 2 06/03/22 08:00 06/03/22 08:00 06/03/22 08:00 06/03/22 08:00 06/03/22 08:00 06/03/22 08:00 05/29/22 11:29 Period Temp Pulse Resp BP Sys/Oliveros Pulse Ox O2 Del Method O2 Flow Rate Last 24 Hr 36.6 C-36.9 C 70-78 16-24 127-175/62-83 92-96 Room Air-Room Air Intake and Output 06/02/22 06/03/22 06/03/22 19:59 03:59 11:59 Intake Total 100 580 340 Output Total 275 125 Balance 100 305 215 Weight 70.352 kg Intake & Output: Intake & Output 06/02/22 06/03/22 06/03/22 19:59 03:59 11:59 Intake Total 100 580 340 Output Total 275 125 Balance 100 305 215 Weight 70.352 kg Intake: IV 100 100 100 Oral 480 240 Output: Urine Catheter Amount 275 125 Other: Meal tapioca pudding ko pudding Nourishment/Supplement Percent of Meal Consumed 100% 100% 100% Feeding Ability Total Assistance Total Assistance Needs Supervision Urine Appearance Clear Clear Uretheral (Winslow) Clear Urine Color Dark Yellow Dark Yellow Uretheral (Winslow) Dark Yellow Head Head exam: Present atraumatic and normal inspection Eye Eye exam: Present normal appearance ENT ENT exam: Present mucous membranes moist, normal exam and normal external ear exam Neck Neck exam: Present normal inspection Respiratory Respiratory exam: Present normal respiratory exam Cardiovascular Cardiovascular exam: Present normal rate and rhythm GI/Abdominal GI/Abdominal exam: Present normal bowel sounds Additional comments: Winslow catheter in place Extremities Exam Extremities exam: Absent full ROM or normal inspection Additional comments: Left lateral hip covered by surgical dressing. Back Exam Back exam: Present normal inspection Neurological Exam Neurological exam: Present alert and altered; Absent oriented X3 Skin Skin exam: Present intact and warm OBJ DATA Labs CBC & Chem 7: 06/03/22 05:45 06/03/22 05:45 Labs: Abnormal Lab Results 06/03/22 06/03/22 06/02/22 05:45 05:45 05:38 RBC 2.72 L Hgb 8.5 L Hct 25.6 L Immature Gran % (Auto) 1.3 H Lymph % (Auto) Immature Gran # 0.09 H Glucose 133 H Calcium 8.3 L AST 54 H 51 H ALT 46 H 41 H Alkaline Phosphatase 126 H Total Protein 5.7 L 5.5 L Albumin 3.0 L 06/02/22 05:38 RBC 2.58 L Hgb 7.9 L Hct 24.5 L Immature Gran % (Auto) 1.3 H Lymph % (Auto) 14.8 L Immature Gran # 0.13 H Glucose Calcium AST ALT Alkaline Phosphatase Total Protein Albumin Meds: Medications Hydrocodone Bitart/Acetaminophen (Hydrocodone/Apap 5/325mg Tablet) 1 tab PO Q4HP PRN; Protocol PRN Reason: Per Pain Protocol Last Admin: 06/02/22 19:04 Dose: 1 tab Amlodipine Besylate (Amlodipine 10 Mg Tablet) 10 mg PO DAILY [facility] Last Admin: 06/03/22 07:48 Dose: 10 mg Artificial Tears (Carboxymethylcellulose Sodium 1 Each Droper.Gel) 0 each OD QID [facility] Last Admin: 06/03/22 07:50 Dose: 1 each Divalproex Sodium (Divalproex 125 Mg Cap.Sprink) 500 mg PO HS [facility] Last Admin: 06/02/22 20:23 Dose: 500 mg Docusate Sodium (Docusate Sodium 100 Mg Capsule) 100 mg PO BID [facility] Last Admin: 06/03/22 07:49 Dose: 100 mg Enoxaparin Sodium (Enoxaparin 40 Mg/0.4 Ml Syringe) 40 mg SQ DAILY [facility] Last Admin: 06/03/22 07:48 Dose: 40 mg Hydromorphone HCl (Hydromorphone 0.5 Mg/0.5 Ml Syringe) 0.5 mg IV Q2HP PRN; Protocol PRN Reason: Per Pain Protocol Last Admin: 06/02/22 01:15 Dose: 0.5 mg Acetaminophen (Ofirmev) 1,000 mg in 100 mls @ 200 mls/hr IV Q8H [facility]; Protocol Last Infusion: 06/03/22 08:42 Dose: Infused Levothyroxine Sodium (Levothyroxine 25 Mcg Tablet) 25 mcg PO ACB [facility] Last Admin: 06/03/22 07:50 Dose: 25 mcg Melatonin (Melatonin 3 Mg Tablet) 3 mg PO HSP [facility] Meloxicam (Meloxicam 7.5 Mg Tablet) 15 mg PO DAILY [facility] Last Admin: 06/03/22 07:50 Dose: 15 mg Memantine (Memantine 10 Mg Tablet) 5 mg PO BID [facility] Last Admin: 06/03/22 07:49 Dose: 5 mg Olanzapine (Olanzapine 10 Mg Vial) 5 mg IM Q4HP PRN PRN Reason: Agitation Last Admin: 06/02/22 01:47 Dose: 5 mg Omeprazole (Omeprazole 20 Mg Capsule) 20 mg PO ACB [facility] Last Admin: 06/03/22 07:50 Dose: 20 mg Ondansetron HCl (Ondansetron 4 Mg/2 Ml Vial) 4 mg IV Q6HP PRN PRN Reason: Nausea And Vomiting Phenytoin Sodium (Phenytoin Sod 100 Mg Capsule) 100 mg PO DAILY [facility] Last Admin: 06/03/22 07:50 Dose: 100 mg Phenytoin Sodium (Phenytoin Sod 100 Mg Capsule) 200 mg PO [facility] Last Admin: 06/02/22 20:24 Dose: 200 mg Prazosin HCl (Prazosin 1 Mg Capsule) 1 mg PO QHS [facility] Last Admin: 06/02/22 20:24 Dose: 1 mg Quetiapine Fumarate (Quetiapine 25 Mg Tablet) 12.5 mg PO TID [facility] Last Admin: 06/03/22 07:49 Dose: 12.5 mg Senna (Sennosides 1 Tablet) 2 tab PO HS [facility] Last Admin: 06/02/22 20:24 Dose: 2 tab Sertraline HCl (Sertraline 100 Mg Tablet) 150 mg PO QAM [facility] Last Admin: 06/03/22 07:48 Dose: 150 mg Sodium Chloride (0.9 % Sodium Chloride 10 Ml Syringe) 10 ml IV Q8 [facility] Last Admin: 06/03/22 04:38 Dose: 10 ml A/P Assessment and plan (1) Alzheimer's dementia with behavioral disturbance: Status: Acute (2) Fracture of hip, left, closed: Status: Acute Qualifiers: Encounter type: initial encounter Qualified Code(s): S72.002A - Fracture of unspecified part of neck of left femur, initial encounter for closed fracture (3) Acute urinary retention: Status: Acute (4) Epilepsy: Status: Chronic Comment: Grand mal status Qualifiers: Epilepsy type: unspecified Status epilepticus: with status epilepticus Intractability: not intractable Qualified Code(s): G40.901 - Epilepsy, un specified, not intractable, with status epilepticus (5) Postoperative anemia: Status: Acute (6) Hypothyroidism (acquired): Status: Acute Narrative A/P Narrative: Assessment and Plans: 1. Left hip fracture, s/p ORIF by Dr. Castillo on 05/31: Continue Wellford and Dilaudid IV as needed for moderate and severe pain, respectively. Rest of the postsurgical care as per surgical team. Pending SNF placement on Monday06/06/22 Lovenox for DVT ppx 2. Alzheimer's Dementia with behavioral disturbance: Memantine Zoloft Seroquel Zyprexa IM PRN agitation/behavioral disturbance 3. Urinary retention: s/p Winslow catheter replacement by Dr. Cadena on 05/[address] until patient is recovered from his recent surgery 4. h/o Epilepsy: Depakote Dilantin 5. Postoperative anemia: cbc w/ auto diff in the morning to trend H/H 6. Hypothyroidism: Continue thyroid replacement therapy GI ppx: Prilosec DVT ppx: Lovenox Code status: DNR Prognosis: Stable Disposition: inpatient med surg; pending SNF placement on Monday06/06/22 Time Spent With Patient Time: Total time spent is greater than 50% in coordination of care (as documented) at patient's floor/unit and/or counseling patient: Total time spent with greater than 50% in coordination of care (as documented) at patient's floor/unit and/or counseling patient:: 25 - 35 minutes
[2022-06-03] MEDS: HYDROcodone/APAP 5/325MG TABLET PO PRN ×2 (14:03→21:27)
[2022-06-03] MEDS: DIVALPROEX 125 MG CAP.SPRINK PO SCH (21:27)
[2022-06-03] MEDS: SENNOSIDES 1 TABLET PO SCH (21:28)
[2022-06-03] MEDS: PRAZOSIN 1 MG CAPSULE PO SCH (21:29)
[2022-06-04] MEDS: 0.9 % SODIUM CHLORIDE 10 ML SYRINGE IV SCH ×3 (05:51→20:43)
[2022-06-04 06:40] LABS: Basophils # (Auto) 0.05 K/mcL (0.00-0.30); Basophils % (Auto) 0.6 % (0.0-2.0); Eosinophils # (Auto) 0.47 K/mcL (0.00-0.70); Eosinophils % (Auto) 5.8 % (0.0-7.0); Hematocrit 25.5 % (40.1-51.0); Lymphocytes # (Auto) 1.77 K/mcL (1.50-4.80); Lymphocytes % (Auto) 21.9 % (15.5-49.0); Mean Corpuscular HGB Conc 31.4 g/dL (31.0-36.0); Mean Platelet Volume 9.4 fL (8.8-12.5); Monocytes # (Auto) 0.85 K/mcL (0.10-0.90); Monocytes % (Auto) 10.5 % (1.0-12.0); Neutrophils % (Auto) 58.7 % (38.0-78.0); Platelet Count 329 K/mcL (140-440); RBC 2.63 M/mcL (4.63-6.08); Red Cell Distribution Width 14.2 % (11.5-14.5); WBC 8.1 K/mcL (4.5-11.0)
[2022-06-04 07:06] LABS: ALT/SGPT 45 U/L (<40); AST/SGOT 49 U/L (<40); Albumin 3.1 gm/dL (3.2-5.2); Albumin/Globulin Ratio 1.3 (1.0-2.3); Alkaline Phosphatase 83 U/L (39-117); Bilirubin,Total 0.4 mg/dL (0.1-1.0); Blood Urea Nitrogen 19 mg/dL (8-23); Calcium 8.2 mg/dL (8.6-10.4); Carbon Dioxide 29 mmol/L (22-30); Chloride 104 mmol/L (96-108); Globulin 2.3 gm/dL (2.2-3.7); Glomerular Filtration Rate 78; Glucose 97 mg/dL (70-105)
[2022-06-04] MEDS: OMEPRAZOLE 20 MG CAPSULE PO SCH (08:33)
[2022-06-04] MEDS: ACETAMINOPHEN 1,000 MG/100 ML BAG IV SCH ×3 (08:33→23:27)
[2022-06-04] MEDS: LEVOTHYROXINE 25 MCG TABLET PO SCH (08:33)
[2022-06-04] MEDS: MELOXICAM 7.5 MG TABLET PO SCH (08:53)
[2022-06-04] MEDS: QUEtiapine 25 MG TABLET PO SCH ×3 (08:53→20:43)
[2022-06-04] MEDS: ENOXAPARIN 40 MG/0.4 ML SYRINGE SQ SCH (08:54)
[2022-06-04] MEDS: DOCUSATE SODIUM 100 MG CAPSULE PO SCH ×2 (08:54→20:42)
[2022-06-04] MEDS: CARBOXYMETHYLCELLULOSE SODIUM 1 EACH DROPER.GEL OD SCH ×4 (08:54→20:41)
[2022-06-04] MEDS: PHENYTOIN SOD 100 MG CAPSULE PO SCH ×2 (08:54→20:43)
[2022-06-04] MEDS: amLODIPine 10 MG TABLET PO SCH (08:55)
[2022-06-04] MEDS: MEMANTINE 10 MG TABLET PO SCH ×2 (08:55→20:42)
[2022-06-04] MEDS: SERTRALINE 100 MG TABLET PO SCH (09:04)
[2022-06-04] MEDS ORDERED: OLANZapine 5 MG TABLET PO PRN (14:22)
--- NOTE | 2022-06-04 14:27 | Internal Med Progress Note ---
SUBJECTIVE Subjective Patient information: Note initiated : 06/04/22 at 2:23 pm Service Date, if different from initiated Date: [] Patient: Guilherme Yepez 81 y/o M admitted on 05/27/22 for FALL. Chief Complaint: [] Principal diagnosis: hip fx and confusion Interval history: Mr. Yepez is a 81-year-old male with a history of hypertension, hypothyroidism, seizure disorder, urinary retention and advanced dementia who lives in an assisted living facility and was brought into the emergency department for evaluation after being found down by the assisted living staff. Patient was unable to provide a history due to advanced dementia. The patient was found to have a left mildly displaced oblique subcapital fracture of the left hip as well as marked prostate enlargement resulting in massive urinary bladder distention and bilateral hydronephrosis and hydroureter. Orthopedic surgery was consulted, recommended surgical correction for the hip fracture. A Winslow catheter was placed in the emergency department. Hospital medicine was consulted for admission. I discussed the patient with his sister, Barbara, who decided that the patient's CODE STATUS would be DNR/DNI. 05/28 Patient had ORIF of the left hip fracture yesterday. Postoperatively the patient was severely agitated and not redirectable, the patient was given Zyprexa IM. This morning the patient is resting comfortably, continues with Winslow catheter. Urinalysis was not suggestive of UTI. 05/29 Patient had an assisted fall last night, no injuries sustained. Patient received Zyprexa last night, resting comfortably this morning.. Pharmacy completed home medication reconciliation and says the patient was taking Ativan 0.5 p.o. mg 3 times daily prior to admission. Will wean off Ativan to avoid benzodiazepine withdrawal. Added Seroquel 25 mg at bedtime. 05/30 Vital stable overnight, hemoglobin 8.0 today, will recheck this afternoon. Leukocytosis resolved. Sodium 150, started D5 IV fluid and will recheck sodium in the afternoon. 07/31-patient remains encephalopathic. Hemoglobin 8.7, intermittently cooperative however was agitated overnight requiring Zyprexa, DC Ativan, continue prazosin/anxiolytics, normal WBC, no fever chills, sodium 145, possible placement in 24 to 48 hours 06/01-patient continues to be confused and delirious, telemetry psych consultation obtained. Psychiatry recommendations as below Pharmacological:1. Agree with plan to discontinue Ativan as it may increase pt confusion and disorientation as well as lower seizure control and contribute to respiratory depression coupled with Zyprexa. 2. Start Seroquel 12.5mg po tid for mood lability and agitation 3. Continue Zyprexa 5mg po/im q 4h prn severe agitation. (hold if QTC over 500. current QTC 476) 4. Continue Zoloft 150mg po qd for depression Otherwise no overnight events. No fever chills, encourage oral fluids/nutrition support. Anticipate discharge in 48 hours pending clinical improvement 1124: Patient is reported to be agitated and acting out overnight. As a result, Zyprexa was changed back from p.o. to IM on as-needed basis for agitation and anxiety. Continue scheduled Seroquel and Zoloft. Continue hand mittens. Continue Craig and Dilaudid IV as needed for moderate and severe pain, respectively. Rest of the postsurgical care as per surgical team. Pending SNF placement. 06/03: Patient reported to be less agitated last night compared to previously. Mittens removed. Zyprexa not required. No other major overnight events. Patient denies any left hip pain. He is complaining of nausea. Continue scheduled Seroquel and Zoloft. Zyprexa IM PRN agitation and anxiety. Continue Craig and Dilaudid IV as needed for moderate and severe pain, respectively. Pending SNF placement on 06/06/22. 06/04: There was no reported agitations or self-harm behavior or harm to staff overnight. No Zyprexa IM was given overnight. Patient denies any left hip pain. Continue scheduled Seroquel and Zoloft. Change Zyprexa from IM to PO HS PRN agitation and anxiety. Continue Craig and Dilaudid IV as needed for moderate and severe pain, respectively. Pending SNF placement on 06/06/22. Constitutional Vitals: Vital Signs Temp Pulse Resp BP Pulse Ox O2 Del Method O2 Flow Rate 37.3 C H 78 14 151/76 99 2 06/04/22 12:00 06/04/22 12:00 06/04/22 12:00 06/04/22 12:00 06/04/22 12:00 06/04/22 12:00 05/29/22 11:29 Period Temp Pulse Resp BP Sys/Oliveros Pulse Ox O2 Del Method O2 Flow Rate Last 24 Hr 36.4 C-37.3 C 63-78 14-16 126-156/57-77 94-100 Room Air-Room Air Intake and Output 06/04/22 06/04/22 06/04/22 03:59 11:59 19:59 Intake Total 340 820 480 Output Total 125 500 Balance 215 320 480 Intake & Output: Intake & Output 06/04/22 06/04/22 06/04/22 03:59 11:59 19:59 Intake Total 340 820 480 Output Total 125 500 Balance 215 320 480 Intake: Nourishment/Supplement quantity 240 (ml) IV 100 100 Oral 240 480 480 Output: Urine Catheter Amount 125 500 Other: Meal Nourishment/Supplement Lunch Percent of Meal Consumed 100% 100% Feeding Ability Needs Supervision Total Assistance Total Assistance Urine Appearance Clear Clear Uretheral (Winslow) Clear Urine Color Dark Yellow Dark Yellow Uretheral (Winslow) Dark Lena Stool Size Moderate Large Stool Color Brown Brown Stool Consistency Formed Formed # Bowel Movements 1 1 Head Head exam: Present atraumatic and normal inspection Eye Eye exam: Present normal appearance ENT ENT exam: Present mucous membranes moist, normal exam and normal external ear exam Neck Neck exam: Present normal inspection Respiratory Respiratory exam: Present normal respiratory exam Cardiovascular Cardiovascular exam: Present normal rate and rhythm GI/Abdominal GI/Abdominal exam: Present normal bowel sounds Extremities Exam Extremities exam: Absent full ROM or normal inspection Additional comments: Left lateral hip covered by surgical dressing. Back Exam Back exam: Present normal inspection Neurological Exam Neurological exam: Present alert and oriented X3 Skin Skin exam: Present intact and warm OBJ DATA Labs CBC & Chem 7: 06/04/22 05:10 06/04/22 05:10 Labs: Abnormal Lab Results 06/04/22 06/04/22 06/03/22 05:10 05:10 05:45 RBC 2.63 L Hgb 8.0 L Hct 25.5 L Immature Gran % (Auto) 2.5 H Lymph % (Auto) Immature Gran # 0.20 H Glucose 133 H Calcium 8.2 L AST 49 H 54 H ALT 45 H 46 H Alkaline Phosphatase Total Protein 5.4 L 5.7 L Albumin 3.1 L 06/03/22 06/02/22 06/02/22 05:45 05:38 05:38 RBC 2.72 L 2.58 L Hgb 8.5 L 7.9 L Hct 25.6 L 24.5 L Immature Gran % (Auto) 1.3 H 1.3 H Lymph % (Auto) 14.8 L Immature Gran # 0.09 H 0.13 H Glucose Calcium 8.3 L AST 51 H ALT 41 H Alkaline Phosphatase 126 H Total Protein 5.5 L Albumin 3.0 L Meds: Medications Hydrocodone Bitart/Acetaminophen (Hydrocodone/Apap 5/325mg Tablet) 1 tab PO Q4HP PRN; Protocol PRN Reason: Per Pain Protocol Last Admin: 06/03/22 21:27 Dose: 1 tab Amlodipine Besylate (Amlodipine 10 Mg Tablet) 10 mg PO DAILY [facility] Last Admin: 06/04/22 08:55 Dose: 10 mg Artificial Tears (Carboxymethylcellulose Sodium 1 Each Droper.Gel) 0 each OD QID [facility] Last Admin: 06/04/22 08:54 Dose: 1 each Divalproex Sodium (Divalproex 125 Mg Cap.Sprink) 500 mg PO HS [facility] Last Admin: 06/03/22 21:27 Dose: 500 mg Docusate Sodium (Docusate Sodium 100 Mg Capsule) 100 mg PO BID [facility] Last Admin: 06/04/22 08:54 Dose: 100 mg Enoxaparin Sodium (Enoxaparin 40 Mg/0.4 Ml Syringe) 40 mg SQ DAILY [facility] Last Admin: 06/04/22 08:54 Dose: 40 mg Hydromorphone HCl (Hydromorphone 0.5 Mg/0.5 Ml Syringe) 0.5 mg IV Q2HP PRN; Protocol PRN Reason: Per Pain Protocol Last Admin: 06/02/22 01:15 Dose: 0.5 mg Acetaminophen (Ofirmev) 1,000 mg in 100 mls @ 200 mls/hr IV Q8H [facility]; Protocol Last Infusion: 06/04/22 09:07 Dose: Infused Levothyroxine Sodium (Levothyroxine 25 Mcg Tablet) 25 mcg PO ACB [facility] Last Admin: 06/04/22 08:33 Dose: 25 mcg Melatonin (Melatonin 3 Mg Tablet) 3 mg PO HSP [facility] Meloxicam (Meloxicam 7.5 Mg Tablet) 15 mg PO DAILY [facility] Last Admin: 06/04/22 08:53 Dose: 15 mg Memantine (Memantine 10 Mg Tablet) 5 mg PO BID [facility] Last Admin: 06/04/22 08:55 Dose: 5 mg Omeprazole (Omeprazole 20 Mg Capsule) 20 mg PO ACB [facility] Last Admin: 06/04/22 08:33 Dose: 20 mg Ondansetron HCl (Ondansetron 4 Mg/2 Ml Vial) 4 mg IV Q6HP PRN PRN Reason: Nausea And Vomiting Phenytoin Sodium (Phenytoin Sod 100 Mg Capsule) 100 mg PO DAILY [facility] Last Admin: 06/04/22 08:54 Dose: 100 mg Phenytoin Sodium (Phenytoin Sod 100 Mg Capsule) 200 mg PO [facility] Last Admin: 06/03/22 21:28 Dose: 200 mg Prazosin HCl (Prazosin 1 Mg Capsule) 1 mg PO QHS [facility] Last Admin: 06/03/22 21:29 Dose: 1 mg Quetiapine Fumarate (Quetiapine 25 Mg Tablet) 12.5 mg PO TID [facility] Last Admin: 06/04/22 08:53 Dose: 12.5 mg Senna (Sennosides 1 Tablet) 2 tab PO [facility] Last Admin: 06/03/22 21:28 Dose: 2 tab Sertraline HCl (Sertraline 100 Mg Tablet) 150 mg PO QAM [facility] Last Admin: 06/04/22 09:04 Dose: 150 mg Sodium Chloride (0.9 % Sodium Chloride 10 Ml Syringe) 10 ml IV Q8 [facility] Last Admin: 06/04/22 05:51 Dose: 10 ml A/P Assessment and plan (1) Alzheimer's dementia with behavioral disturbance: Status: Acute (2) Fracture of hip, left, closed: Status: Acute Qualifiers: Encounter type: initial encounter Qualified Code(s): S72.002A - Fr acture of unspecified part of neck of left femur, initial encounter for closed fracture (3) Acute urinary retention: Status: Acute (4) Epilepsy: Status: Chronic Comment: Grand mal status Qualifiers: Epilepsy type: unspecified Status epilepticus: with status epilepticus Intractability: not intractable Qualified Code(s): G40.901 - Epilepsy, unspecified, not intractable, with status epilepticus (5) Postoperative anemia: Status: Acute (6) Hypothyroidism (acquired): Status: Acute Narrative A/P Narrative: Assessment and Plans: 1. Left hip fracture, s/p ORIF by Dr. Castillo on 05/31: Continue Craig and Dilaudid IV as needed for moderate and severe pain, respectively. Rest of the postsurgical care as per surgical team. Pending SNF placement on Monday06/06/22 Lovenox for DVT ppx 2. Alzheimer's Dementia with behavioral disturbance: Memantine Zoloft Seroquel Zyprexa IM-->PO PRN agitation/behavioral disturbance 3. Urinary retention: s/p Winslow catheter replacement by Dr. Cadena on 05/[address] until patient is recovered from his recent surgery 4. h/o Epilepsy: Depakote Dilantin 5. Postoperative anemia: cbc w/ auto diff in the morning to trend H/H 6. Hypothyroidism: Continue thyroid replacement therapy GI ppx: Prilosec DVT ppx: Lovenox Code status: DNR Prognosis: Stable Disposition: inpatient med surg; pending SNF placement on Monday06/06/22 Time Spent With Patient Time: Total time spent is greater than 50% in coordination of care (as documented) at patient's floor/unit and/or counseling patient: Total time spent with greater than 50% in coordination of care (as documented) at patient's floor/unit and/or counseling patient:: 25 - 35 minutes
[2022-06-04] MEDS: DIVALPROEX 125 MG CAP.SPRINK PO SCH (20:42)
[2022-06-04] MEDS: PRAZOSIN 1 MG CAPSULE PO SCH (20:42)
[2022-06-04] MEDS: SENNOSIDES 1 TABLET PO SCH (20:42)
[2022-06-05 06:43] LABS: Basophils # (Auto) 0.05 K/mcL (0.00-0.30); Basophils % (Auto) 0.6 % (0.0-2.0); Eosinophils # (Auto) 0.39 K/mcL (0.00-0.70); Hemoglobin 7.7 g/dL (13.7-17.5); Lymphocytes # (Auto) 1.77 K/mcL (1.50-4.80); Lymphocytes % (Auto) 22.9 % (15.5-49.0); Mean Cell Volume 97.2 fL (80.0-100.0); Mean Corpuscular HGB Conc 32.1 g/dL (31.0-36.0); Mean Platelet Volume 9.4 fL (8.8-12.5); Monocytes # (Auto) 0.83 K/mcL (0.10-0.90); Monocytes % (Auto) 10.7 % (1.0-12.0); Neutrophils % (Auto) 57.3 % (38.0-78.0); Platelet Count 310 K/mcL (140-440); RBC 2.47 M/mcL (4.63-6.08); Red Cell Distribution Width 14.6 % (11.5-14.5); WBC 7.7 K/mcL (4.5-11.0)
[2022-06-05 07:17] LABS: ALT/SGPT 42 U/L (<40); AST/SGOT 42 U/L (<40); Albumin 3.1 gm/dL (3.2-5.2); Albumin/Globulin Ratio 1.5 (1.0-2.3); Alkaline Phosphatase 73 U/L (39-117); Bilirubin,Total 0.4 mg/dL (0.1-1.0); Blood Urea Nitrogen 17 mg/dL (8-23); Calcium 8.4 mg/dL (8.6-10.4); Carbon Dioxide 28 mmol/L (22-30); Chloride 103 mmol/L (96-108); Glomerular Filtration Rate 82; Glucose 96 mg/dL (70-105)
[2022-06-05] MEDS: OMEPRAZOLE 20 MG CAPSULE PO SCH (07:51)
[2022-06-05] MEDS: ACETAMINOPHEN 1,000 MG/100 ML BAG IV SCH ×3 (07:51→23:29)
[2022-06-05] MEDS: LEVOTHYROXINE 25 MCG TABLET PO SCH (07:51)
[2022-06-05] MEDS: ENOXAPARIN 40 MG/0.4 ML SYRINGE SQ SCH (08:07)
[2022-06-05] MEDS: 0.9 % SODIUM CHLORIDE 10 ML SYRINGE IV SCH ×3 (08:07→21:00)
[2022-06-05] MEDS: CARBOXYMETHYLCELLULOSE SODIUM 1 EACH DROPER.GEL OD SCH ×4 (08:08→20:57)
[2022-06-05] MEDS: MELOXICAM 7.5 MG TABLET PO SCH (08:08)
[2022-06-05] MEDS: SERTRALINE 100 MG TABLET PO SCH (08:08)
[2022-06-05] MEDS: amLODIPine 10 MG TABLET PO SCH (08:08)
[2022-06-05] MEDS: DOCUSATE SODIUM 100 MG CAPSULE PO SCH ×2 (08:08→20:59)
[2022-06-05] MEDS: PHENYTOIN SOD 100 MG CAPSULE PO SCH ×2 (08:09→20:59)
[2022-06-05] MEDS: QUEtiapine 25 MG TABLET PO SCH ×3 (08:09→21:00)
[2022-06-05] MEDS: MEMANTINE 10 MG TABLET PO SCH ×2 (08:14→21:00)
--- NOTE | 2022-06-05 12:47 | Internal Med Progress Note ---
SUBJECTIVE Subjective Patient information: Note initiated : 06/05/22 at 12:39 pm Service Date, if different from initiated Date: [] Patient: Guilherme Yepez 81 y/o M admitted on 05/27/22 for FALL. Chief Complaint: [] Principal diagnosis: hip fx and confusion Interval history: Mr. Yepez is a 81-year-old male with a history of hypertension, hypothyroidism, seizure disorder, urinary retention and advanced dementia who lives in an assisted living facility and was brought into the emergency department for evaluation after being found down by the assisted living staff. Patient was unable to provide a history due to advanced dementia. The patient was found to have a left mildly displaced oblique subcapital fracture of the left hip as well as marked prostate enlargement resulting in massive urinary bladder distention and bilateral hydronephrosis and hydroureter. Orthopedic surgery was consulted, recommended surgical correction for the hip fracture. A Winslow catheter was placed in the emergency department. Hospital medicine was consulted for admission. I discussed the patient with his sister, Barbara, who decided that the patient's CODE STATUS would be DNR/DNI. 05/28 Patient had ORIF of the left hip fracture yesterday. Postoperatively the patient was severely agitated and not redirectable, the patient was given Zyprexa IM. This morning the patient is resting comfortably, continues with Winslow catheter. Urinalysis was not suggestive of UTI. 05/29 Patient had an assisted fall last night, no injuries sustained. Patient received Zyprexa last night, resting comfortably this morning.. Pharmacy completed home medication reconciliation and says the patient was taking Ativan 0.5 p.o. mg 3 times daily prior to admission. Will wean off Ativan to avoid benzodiazepine withdrawal. Added Seroquel 25 mg at bedtime. 05/30 Vital stable overnight, hemoglobin 8.0 today, will recheck this afternoon. Leukocytosis resolved. Sodium 150, started D5 IV fluid and will recheck sodium in the afternoon. 07/31-patient remains encephalopathic. Hemoglobin 8.7, intermittently cooperative however was agitated overnight requiring Zyprexa, DC Ativan, continue prazosin/anxiolytics, normal WBC, no fever chills, sodium 145, possible placement in 24 to 48 hours 06/01-patient continues to be confused and delirious, telemetry psych consultation obtained. Psychiatry recommendations as below Pharmacological:1. Agree with plan to discontinue Ativan as it may increase pt confusion and disorientation as well as lower seizure control and contribute to respiratory depression coupled with Zyprexa. 2. Start Seroquel 12.5mg po tid for mood lability and agitation 3. Continue Zyprexa 5mg po/im q 4h prn severe agitation. (hold if QTC over 500. current QTC 476) 4. Continue Zoloft 150mg po qd for depression Otherwise no overnight events. No fever chills, encourage oral fluids/nutrition support. Anticipate discharge in 48 hours pending clinical improvement 1124: Patient is reported to be agitated and acting out overnight. As a result, Zyprexa was changed back from p.o. to IM on as-needed basis for agitation and anxiety. Continue scheduled Seroquel and Zoloft. Continue hand mittens. Continue Lotus and Dilaudid IV as needed for moderate and severe pain, respectively. Rest of the postsurgical care as per surgical team. Pending SNF placement. 06/03: Patient reported to be less agitated last night compared to previously. Mittens removed. Zyprexa not required. No other major overnight events. Patient denies any left hip pain. He is complaining of nausea. Continue scheduled Seroquel and Zoloft. Zyprexa IM PRN agitation and anxiety. Continue Lotus and Dilaudid IV as needed for moderate and severe pain, respectively. Pending SNF placement on 06/06/22. 06/04: There was no reported agitations or self-harm behavior or harm to staff overnight. No Zyprexa IM was given overnight. Patient denies any left hip pain. Continue scheduled Seroquel and Zoloft. Change Zyprexa from IM to PO HS PRN agitation and anxiety. Continue Lotus and Dilaudid IV as needed for moderate and severe pain, respectively. Pending SNF placement on 06/06/22. 06/05: There was no reported agitations or self-harm behavior or harm to staff overnight. No Zyprexa PO was given overnight. Patient denies any left hip pain. Continue Zoloft, Seroquel, and Zyprexa PRN agitation. Continue Lotus and Dilaudid IV as needed for moderate and severe pain, respectively. Pending SNF placement on 06/06/22. Constitutional Vitals: Vital Signs Temp Pulse Resp BP Pulse Ox O2 Del Method O2 Flow Rate 36.3 C 66 14 160/70 100 2 06/05/22 07:52 06/05/22 07:52 06/05/22 07:52 06/05/22 07:52 06/05/22 08:00 06/05/22 08:00 05/29/22 11:29 Period Temp Pulse Resp BP Sys/Oliveros Pulse Ox O2 Del Method O2 Flow Rate Last 24 Hr 36.3 C-36.9 C 55-70 14-20 130-160/59-78 96-100 Room Air-Room Air Intake and Output 06/05/22 06/05/22 06/05/22 03:59 11:59 19:59 Intake Total 100 100 Output Total 475 Balance -375 100 Weight 70.987 kg Intake & Output: Intake & Output 06/05/22 06/05/22 06/05/22 03:59 11:59 19:59 Intake Total 100 100 Output Total 475 Balance -375 100 Weight 70.987 kg Intake: IV 100 100 Output: Urine Catheter Amount 475 Other: Urine Appearance Clear Clear Uretheral (Winslow) Clear Urine Color Dark Yellow Dark Yellow Uretheral (Winslow) Dark Yellow Head Head exam: Present atraumatic and normal inspection Eye Eye exam: Present normal appearance ENT ENT exam: Present mucous membranes moist, normal exam and normal external ear exam Neck Neck exam: Present normal inspection Respiratory Respiratory exam: Present normal respiratory exam Cardiovascular Cardiovascular exam: Present normal rate and rhythm GI/Abdominal GI/Abdominal exam: Present normal bowel sounds Additional comments: Winslow catheter in place Extremities Exam Extremities exam: Present full ROM; Absent normal inspection Additional comments: Left lateral hip covered by surgical dressing Back Exam Back exam: Present normal inspection Neurological Exam Neurological exam: Present alert and oriented X3 Skin Skin exam: Present intact and warm OBJ DATA Labs CBC & Chem 7: 06/05/22 05:15 06/05/22 05:15 Labs: Abnormal Lab Results 06/05/22 06/05/22 06/04/22 05:15 05:15 05:10 RBC 2.47 L Hgb 7.7 L Hct 24.0 L RDW 14.6 H Immature Gran % (Auto) 3.5 H Immature Gran # 0.27 H Glucose Calcium 8.4 L 8.2 L AST 42 H 49 H ALT 42 H 45 H Total Protein 5.1 L 5.4 L Albumin 3.1 L 3.1 L Globulin 2.0 L 06/04/22 06/03/22 06/03/22 05:10 05:45 05:45 RBC 2.63 L 2.72 L Hgb 8.0 L 8.5 L Hct 25.5 L 25.6 L RDW Immature Gran % (Auto) 2.5 H 1.3 H Immature Gran # 0.20 H 0.09 H Glucose 133 H Calcium AST 54 H ALT 46 H Total Protein 5.7 L Albumin Globulin Meds: Medications Hydrocodone Bitart/Acetaminophen (Hydrocodone/Apap 5/325mg Tablet) 1 tab PO Q4HP PRN; Protocol PRN Reason: Per Pain Protocol Last Admin: 06/03/22 21:27 Dose: 1 tab Amlodipine Besylate (Amlodipine 10 Mg Tablet) 10 mg PO DAILY [facility] Last Admin: 06/05/22 08:08 Dose: 10 mg Artificial Tears (Carboxymethylcellulose Sodium 1 Each Droper.Gel) 0 each OD QID [facility] Last Admin: 06/05/22 08:08 Dose: 1 each Divalproex Sodium (Divalproex 125 Mg Cap.Sprink) 500 mg PO HS [facility] Last Admin: 06/04/22 20:42 Dose: 500 mg Docusate Sodium (Docusate Sodium 100 Mg Capsule) 100 mg PO BID [facility] Last Admin: 06/05/22 08:08 Dose: 100 mg Enoxaparin Sodium (Enoxaparin 40 Mg/0.4 Ml Syringe) 40 mg SQ DAILY [facility] Last Admin: 06/05/22 08:07 Dose: 40 mg Hydromorphone HCl (Hydromorphone 0.5 Mg/0.5 Ml Syringe) 0.5 mg IV Q2HP PRN; Protocol PRN Reason: Per Pain Protocol Last Admin: 06/02/22 01:15 Dose: 0.5 mg Acetaminophen (Ofirmev) 1,000 mg in 100 mls @ 200 mls/hr IV Q8H [facility]; Protocol Last Infusion: 06/05/22 08:30 Dose: Infused Levothyroxine Sodium (Levothyroxine 25 Mcg Tablet) 25 mcg PO ACB [facility] Last Admin: 06/05/22 07:51 Dose: 25 mcg Melatonin (Melatonin 3 Mg Tablet) 3 mg PO HSP [facility] Last Admin: 06/04/22 23:28 Dose: 3 mg Meloxicam (Meloxicam 7.5 Mg Tablet) 15 mg PO DAILY [facility] Last Admin: 06/05/22 08:08 Dose: 15 mg Memantine (Memantine 10 Mg Tablet) 5 mg PO BID [facility] Last Admin: 06/05/22 08:14 Dose: 5 mg Olanzapine (Olanzapine 5 Mg Tablet) 5 mg PO HS PRN PRN Reason: ANXIETY/SEDATION Omeprazole (Omeprazole 20 Mg Capsule) 20 mg PO ACB [facility] Last Admin: 06/05/22 07:51 Dose: 20 mg Ondansetron HCl (Ondansetron 4 Mg/2 Ml Vial) 4 mg IV Q6HP PRN PRN Reason: Nausea And Vomiting Phenytoin Sodium (Phenytoin Sod 100 Mg Capsule) 100 mg PO DAILY [facility] Last Admin: 06/05/22 08:09 Dose: 100 mg Phenytoin Sodium (Phenytoin Sod 100 Mg Capsule) 200 mg PO [facility] Last Admin: 06/04/22 20:43 Dose: 200 mg Prazosin HCl (Prazosin 1 Mg Capsule) 1 mg PO QHS [facility] Last Admin: 06/04/22 20:42 Dose: 1 mg Quetiapine Fumarate (Quetiapine 25 Mg Tablet) 12.5 mg PO TID [facility] Last Admin: 06/05/22 08:09 Dose: 12.5 mg Senna (Sennosides 1 Tablet) 2 tab PO [facility] Last Admin: 06/04/22 20:42 Dose: 2 tab Sertraline HCl (Sertraline 100 Mg Tablet) 150 mg PO QAM [facility] Last Admin: 06/05/22 08:08 Dose: 150 mg Sodium Chloride (0.9 % Sodium Chloride 10 Ml Syringe) 10 ml IV Q8 [facility] Last Admin: 06/05/22 08:07 Dose: 10 ml A/P Assessment and plan (1) Alzheimer's dementia with behavioral disturbance: Status: Acute (2) Fracture of hip, left, closed: Status: Acute Qualifiers: Encounter type: initial encounter Qualified Code(s): S72.002A - Fracture of unspecified part of neck of left femur, initial encounter for closed fracture (3) Acute urinary retention: Status: Acute (4) Epilepsy: Status: Chronic Comment: Grand mal status Qualifiers: Epilepsy type: unspecified Status epilepticus: with status epilepticus Intractability: not intractable Qualified Code(s): G40.901 - Epilepsy, unspecified, not intractable, with status epilepticus (5) Postoperative anemia: Status: Acute (6) Hypothyroidism (acquired): Status: Acute Narrative A/P Narrative: Assessment and Plans: 1. Left hip fracture, s/p ORIF by Dr. Castillo on 05/31: Continue Lotus and Dilaudid IV as needed for moderate and severe pain, respectively. Rest of the postsurgical care as per surgical team. Pending SNF placement on Monday06/06/22 Lovenox for DVT ppx 2. Alzheimer's Dementia with behavioral disturbance: Memantine Zoloft Seroquel Zyprexa PO PRN agitation/behavioral disturbance 3. Urinary retention: s/p Winslow catheter replacement by Dr. Cadena on 05/[address] until patient is recovered from his recent surgery 4. h/o Epilepsy: Depakote Dilantin 5. Postoperative anemia: cbc w/ auto diff in the morning to trend H/H 6. Hypothyroidism: Continue thyroid replacement therapy GI ppx: Prilosec DVT ppx: Lovenox Code status: DNR Prognosis: Stable Disposition: inpatient med surg; pending SNF placement on Monday06/06/22 Time Spent With Patient Time: Total time spent is greater than 50% in coordination of care (as documented) at patient's floor/unit and/or counseling patient: Total time spent with greater than 50% in coordination of care (as documented) at patient's floor/unit and/or counseling patient:: 25 - 35 minutes
[2022-06-05] MEDS: SENNOSIDES 1 TABLET PO SCH (20:58)
[2022-06-05] MEDS: DIVALPROEX 125 MG CAP.SPRINK PO SCH (20:58)
[2022-06-05] MEDS: PRAZOSIN 1 MG CAPSULE PO SCH (21:00)
[2022-06-06] MEDS: 0.9 % SODIUM CHLORIDE 10 ML SYRINGE IV SCH ×3 (05:56→20:30)
[2022-06-06 07:02] LABS: Basophils # (Auto) 0.05 K/mcL (0.00-0.30); Basophils % (Auto) 0.6 % (0.0-2.0); Eosinophils # (Auto) 0.38 K/mcL (0.00-0.70); Eosinophils % (Auto) 4.7 % (0.0-7.0); Hematocrit 26.2 % (40.1-51.0); Hemoglobin 8.4 g/dL (13.7-17.5); Lymphocytes # (Auto) 1.92 K/mcL (1.50-4.80); Lymphocytes % (Auto) 23.9 % (15.5-49.0); Mean Cell Volume 97.8 fL (80.0-100.0); Mean Corpuscular HGB Conc 32.1 g/dL (31.0-36.0); Mean Platelet Volume 9.3 fL (8.8-12.5); Monocytes # (Auto) 0.76 K/mcL (0.10-0.90); Monocytes % (Auto) 9.5 % (1.0-12.0); Neutrophils % (Auto) 58.3 % (38.0-78.0); Platelet Count 392 K/mcL (140-440); RBC 2.68 M/mcL (4.63-6.08); Red Cell Distribution Width 15.1 % (11.5-14.5)
[2022-06-06 07:32] LABS: ALT/SGPT 37 U/L (<40); AST/SGOT 29 U/L (<40); Albumin 3.3 gm/dL (3.2-5.2); Albumin/Globulin Ratio 1.7 (1.0-2.3); Alkaline Phosphatase 81 U/L (39-117); Bilirubin,Total 0.3 mg/dL (0.1-1.0); Blood Urea Nitrogen 15 mg/dL (8-23); Calcium 8.4 mg/dL (8.6-10.4); Carbon Dioxide 27 mmol/L (22-30); Chloride 102 mmol/L (96-108); Globulin 1.9 gm/dL (2.2-3.7); Glomerular Filtration Rate 82; Glucose 94 mg/dL (70-105)
[2022-06-06] MEDS: MEMANTINE 10 MG TABLET PO SCH ×2 (08:27→20:29)
[2022-06-06] MEDS: LEVOTHYROXINE 25 MCG TABLET PO SCH (08:27)
[2022-06-06] MEDS: PHENYTOIN SOD 100 MG CAPSULE PO SCH ×2 (08:28→20:27)
[2022-06-06] MEDS: QUEtiapine 25 MG TABLET PO SCH ×3 (08:28→20:29)
[2022-06-06] MEDS: SERTRALINE 100 MG TABLET PO SCH (08:28)
[2022-06-06] MEDS: HYDROcodone/APAP 5/325MG TABLET PO PRN (08:29)
[2022-06-06] MEDS: MELOXICAM 7.5 MG TABLET PO SCH (08:32)
[2022-06-06] MEDS: amLODIPine 10 MG TABLET PO SCH (08:33)
[2022-06-06] MEDS: DOCUSATE SODIUM 100 MG CAPSULE PO SCH ×2 (08:33→20:29)
[2022-06-06] MEDS: OMEPRAZOLE 20 MG CAPSULE PO SCH (08:33)
[2022-06-06] MEDS: ACETAMINOPHEN 1,000 MG/100 ML BAG IV SCH ×2 (08:35→17:53)
[2022-06-06] MEDS: ENOXAPARIN 40 MG/0.4 ML SYRINGE SQ SCH (08:35)
[2022-06-06] MEDS: CARBOXYMETHYLCELLULOSE SODIUM 1 EACH DROPER.GEL OD SCH ×4 (08:38→20:28)
--- NOTE | 2022-06-06 09:17 | Discharge Summary ---
Discharge Provider Provider IMPORTANT FOLLOW-UP INFORMATION FOR PCP: Patient information: Note initiated : 06/06/22 at 9:15 am Service Date, if different from initiated Date: [] Patient: Guilherme Yepez 81 y/o M admitted on 05/27/22 for FALL. Chief Complaint: [] Date of admission: 05/27/22 15:49 Discharge date: 06/06/22 Primary care physician: Daniel Hartman PA-C Attending physician on admission: Chito Castillo Consults: 05/27/22 Consult to Physician [CONS] Stat Comment: Consulting Provider: Chito Castillo Reason For Exam: Physician to Consult Consult to Physician [CONS] Stat Comment: Consulting Provider: Khris Cyr Reason For Exam: Physician to Consult 05/31/22 15:13 Consult to Physician [CONS] Routine Comment: Consulting Provider: [facility] Reason For Exam: Physician to Consult 05/31/22 15:30 Consult to Physician [CONS] Routine Comment: Consulting Provider: Chris Cadena Reason For Exam: Physician to Consult Attending physician on discharge: Chi Elsi Pui COURSE Hospital Course Hospital course: Mr. Yepez is a 81-year-old male with a history of hypertension, hypothyroidism, seizure disorder, urinary retention and advanced dementia who lives in an assisted living facility and was brought into the emergency department for evaluation after being found down by the assisted living staff. Patient was unable to provide a history due to advanced dementia. The patient was found to have a left mildly displaced oblique subcapital fracture of the left hip as well as marked prostate enlargement resulting in massive urinary bladder distention and bilateral hydronephrosis and hydroureter. Orthopedic surgery was consulted, recommended surgical correction for the hip fracture. A Winslow catheter was placed in the emergency department. Hospital medicine was consulted for admission. I discussed the patient with his sister, Barbara, who decided that the patient's CODE STATUS would be DNR/DNI. 05/28 Patient had ORIF of the left hip fracture yesterday. Postoperatively the patient was severely agitated and not redirectable, the patient was given Zyprexa IM. This morning the patient is resting comfortably, continues with Winslow catheter. Urinalysis was not suggestive of UTI. 05/29 Patient had an assisted fall last night, no injuries sustained. Patient received Zyprexa last night, resting comfortably this morning.. Pharmacy completed home medication reconciliation and says the patient was taking Ativan 0.5 p.o. mg 3 times daily prior to admission. Will wean off Ativan to avoid benzodiazepine withdrawal. Added Seroquel 25 mg at bedtime. 05/30 Vital stable overnight, hemoglobin 8.0 today, will recheck this afternoon. Leukocytosis resolved. Sodium 150, started D5 IV fluid and will recheck sodium in the afternoon. 07/31-patient remains encephalopathic. Hemoglobin 8.7, intermittently cooperative however was agitated overnight requiring Zyprexa, DC Ativan, continue prazosin/anxiolytics, normal WBC, no fever chills, sodium 145, possible placement in 24 to 48 hours 06/01-patient continues to be confused and delirious, telemetry psych consultation obtained. Psychiatry recommendations as below Pharmacological:1. Agree with plan to discontinue Ativan as it may increase pt confusion and disorientation as well as lower seizure control and contribute to respiratory depression coupled with Zyprexa. 2. Start Seroquel 12.5mg po tid for mood lability and agitation 3. Continue Zyprexa 5mg po/im q 4h prn severe agitation. (hold if QTC over 500. current QTC 476) 4. Continue Zoloft 150mg po qd for depression Otherwise no overnight events. No fever chills, encourage oral fluids/nutrition support. Anticipate discharge in 48 hours pending clinical improvement 1124: Patient is reported to be agitated and acting out overnight. As a result, Zyprexa was changed back from p.o. to IM on as-needed basis for agitation and anxiety. Continue scheduled Seroquel and Zoloft. Continue hand mittens. Continue [place] and Dilaudid IV as needed for moderate and severe pain, respectively. Rest of the postsurgical care as per surgical team. Pending SNF placement. 06/03: Patient reported to be less agitated last night compared to previously. Mittens removed. Zyprexa not required. No other major overnight events. Patient denies any left hip pain. He is complaining of nausea. Continue scheduled Seroquel and Zoloft. Zyprexa IM PRN agitation and anxiety. Continue [place] and Dilaudid IV as needed for moderate and severe pain, respectively. Pending SNF placement on 06/06/22. 06/04: There was no reported agitations or self-harm behavior or harm to staff overnight. No Zyprexa IM was given overnight. Patient denies any left hip pain. Continue scheduled Seroquel and Zoloft. Change Zyprexa from IM to PO HS PRN agitation and anxiety. Continue [place] and Dilaudid IV as needed for moderate and severe pain, respectively. Pending SNF placement on 06/06/22. 06/05: There was no reported agitations or self-harm behavior or harm to staff overnight. No Zyprexa PO was given overnight. Patient denies any left hip pain. Continue Zoloft, Seroquel, and Zyprexa PRN agitation. Continue [place] and Dilaudid IV as needed for moderate and severe pain, respectively. Pending SNF placement on 06/06/22. 06/06: Discharged to adult family home with home health PT, OT, SLT. Discharge diagnosis: left hip fracture Time Spent with Patient Time attestation: Total time spent providing and/or coordinating discharge services: Time spent: Greater than 30 minutes EXAM Constitutional Vitals: Temp Pulse Resp BP Pulse Ox O2 Del Method O2 Flow Rate 36.3 C 63 16 142/66 96 2 06/06/22 03:45 06/06/22 03:45 06/06/22 03:45 06/06/22 03:45 06/06/22 03:45 06/06/22 03:45 05/29/22 11:29 General appearance: cooperative and no acute distress Head Head exam: Present atraumatic and normocephalic Eye Eye exam: Present EOMI and PERRL ENT ENT exam: Present mucous membranes moist, normal exam and normal external ear exam Neck Neck exam: Present normal inspection; Absent lymphadenopathy, tenderness or thyromegaly Respiratory Respiratory exam: Absent accessory muscle use, respiratory distress or wheezes Cardiovascular Cardiovascular exam: Present normal rate and rhythm; Absent JVD GI/Abdominal GI/Abdominal exam: Present normal bowel sounds and soft; Absent organomegaly or tenderness Rectal Rectal exam: Present deferred Extremities Exam Extremities exam: Present normal capillary refill; Absent full ROM, normal inspection or tenderness Additional comments: Left lateral hip covered by dressing Neurological Exam Neurological exam: Present alert and CN II-XII intact; Absent motor sensory deficit or oriented X3 Psychiatric Psychiatric exam: Present normal affect and normal mood; Absent anxious or depressed Skin Skin exam: Present dry and intact Discharge Data Data Completed and Pending Labs on day of discharge: Labs from last 24 hours 06/06/22 06/06/22 05:49 05:49 WBC 8.0 RBC 2.68 L Hgb 8.4 L Hct 26.2 L MCV 97.8 MCH 31.3 MCHC 32.1 RDW 15.1 H Plt Count 392 MPV 9.3 Immature Gran % (Auto) 3.0 H Neut % (Auto) 58.3 Lymph % (Auto) 23.9 [place] % (Auto) 9.5 Eos % (Auto) 4.7 Baso % (Auto) 0.6 Lymph # (Auto) 1.92 [place] # (Auto) 0.76 Eos # (Auto) 0.38 Baso # (Auto) 0.05 Immature Gran # 0.24 H Absolute Neutrophils 4.67 Sodium 138 Potassium 3.8 Chloride 102 Carbon Dioxide 27 Anion Gap 9.0 BUN 15 Creatinine 0.8 GFR Calculation 82 Glucose 94 Calcium 8.4 L Total Bilirubin 0.3 AST 29 ALT 37 Alkaline Phosphatase 81 Total Protein 5.2 L Albumin 3.3 Globulin 1.9 L Albumin/Globulin Ratio 1.7 Discharge Plan Patient/Caregiver Discharge Instructions Activity: increase activity as tolerated Diet: Regular Diet Prescriptions: New hydrocodone-acetaminophen 5-325 mg Tablet 1 tab PO Q4H PRN (Reason: Pain) Qty: 40 0RF quetiapine 25 mg Tablet 12.5 mg PO TID 30 Days Qty: 45 0RF enoxaparin 40 mg/0.4 mL Syringe 40 mg SQ DAILY 18 Days Qty: 18 0RF Continued [id number]-MV-lycopen-lutein [CertaVite Senior] 0.4-300-250 mg-mcg-mcg ta blet See Rx Instructions .ROUTE .COMPLEX Qty: 31 11RF Dose Instruction: TAKE 1 TABLET BY MOUTH DAILY (8AM) Rx Instructions: TAKE 1 TABLET BY MOUTH DAILY (8AM) omeprazole 20 mg capsule,delayed release(DR/EC) 20 mg PO QAM Qty: 90 3RF amlodipine 10 mg tablet See Rx Instructions .ROUTE .COMPLEX Qty: 90 3RF Dose Instruction: TAKE 1 TABLET BY MOUTH DAILY IN THE MORNING (8AM) Rx Instructions: TAKE 1 TABLET BY MOUTH DAILY IN THE MORNING (8AM) ferrous sulfate 325 mg (65 mg iron) tablet 325 mg PO QDAY Qty: 90 3RF memantine 5 mg tablet 5 mg PO BID Qty: 180 3RF phenytoin sodium extended 100 mg capsule See Dose Instructions .ROUTE .COMPLEX Qty: 270 3RF Dose Instruction: Take 100mg in the morning and 200mg at bedtime Rx Instructions: Take 100mg in the morning and 200mg at bedtime ziprasidone HCl 20 mg capsule 20 mg PO BID Qty: 180 3RF Rx Instructions: give with food (meal/snack) levothyroxine 25 mcg tablet 25 mcg PO QDAY Qty: 90 3RF acetaminophen 325 mg tablet 325 mg PO BID PRN (Reason: pain) Qty: 60 4RF artificial tears(hypromellose) 0.5 % drops 2 drp OPHTHALMIC QID Qty: 30 4RF olopatadine 0.1 % drops 2 drp ophthalmic (eye) BID Qty: 5 5RF Rx Instructions: Instill 2 drops in affected eye twice daily (DME) 4 post cane Qty: 1 0RF Rx Instructions: Use as needed dialy (DME) FWW with seat Qty: 1 0RF Dose Instruction: As directed Rx Instructions: As directed (DME) Handicap Placard Qty: 1 0RF Rx Instructions: As directed divalproex 500 mg tablet,delayed release (DR/EC) 500 mg PO HS meloxicam 15 mg tablet 15 mg PO QDAY prazosin 1 mg capsule 1 mg PO QHS sertraline 100 mg tablet 150 mg PO QAM (DME) sm dry eye relief See Rx Instructions .ROUTE .MEDSUPPLY Rx Instructions: instill 2 drops into the ey four times daily. Changed lorazepam 0.5 mg tablet 0.25 mg PO BID Qty: 20 0RF Discontinued lorazepam 0.5 mg tablet 0.5 mg PO TID Other Ambulatory Orders: OT Discharge Order (Routine) Location: None Selected Ordered By: Eugenio Goldberg Physical Therapy at Discharge - General (Routine) Location: None Selected Ordered By: Eugenio Goldberg ST Discharge Order (Routine) Location: None Selected Ordered By: Eugenio Goldberg Follow Up Plan Follow up with: Chito Castillo MD [Physician] - Chris Cadena MD [Physician] - Ostermiller,Daniel, PA-C [Primary Care Provider] - Patient Disposition: Xfer Other Prognosis: Fair Rehab Potential: Good I certify that the patient requires SNF services: No Overall status at discharge: patient is progressing back to baseline Discharge Orders: Discharge Order (Routine); Ordered 06/06/22 Ordered By: Eugenio Goldberg
--- NOTE | 2022-06-06 12:38 | Internal Med Progress Note ---
SUBJECTIVE Subjective Patient information: Note initiated : 06/06/22 at 12:36 pm Service Date, if different from initiated Date: [] Patient: Guilherme Yepez 81 y/o M admitted on 05/27/22 for FALL. Chief Complaint: [] Principal diagnosis: hip fx and confusion Interval history: Mr. Yepez is a 81-year-old male with a history of hypertension, hypothyroidism, seizure disorder, urinary retention and advanced dementia who lives in an assisted living facility and was brought into the emergency department for evaluation after being found down by the assisted living staff. Patient was unable to provide a history due to advanced dementia. The patient was found to have a left mildly displaced oblique subcapital fracture of the left hip as well as marked prostate enlargement resulting in massive urinary bladder distention and bilateral hydronephrosis and hydroureter. Orthopedic surgery was consulted, recommended surgical correction for the hip fracture. A Winslow catheter was placed in the emergency department. Hospital medicine was consulted for admission. I discussed the patient with his sister, Barbara, who decided that the patient's CODE STATUS would be DNR/DNI. 05/28 Patient had ORIF of the left hip fracture yesterday. Postoperatively the patient was severely agitated and not redirectable, the patient was given Zyprexa IM. This morning the patient is resting comfortably, continues with Winslow catheter. Urinalysis was not suggestive of UTI. 05/29 Patient had an assisted fall last night, no injuries sustained. Patient received Zyprexa last night, resting comfortably this morning.. Pharmacy completed home medication reconciliation and says the patient was taking Ativan 0.5 p.o. mg 3 times daily prior to admission. Will wean off Ativan to avoid benzodiazepine withdrawal. Added Seroquel 25 mg at bedtime. 05/30 Vital stable overnight, hemoglobin 8.0 today, will recheck this afternoon. Leukocytosis resolved. Sodium 150, started D5 IV fluid and will recheck sodium in the afternoon. 07/31-patient remains encephalopathic. Hemoglobin 8.7, intermittently cooperative however was agitated overnight requiring Zyprexa, DC Ativan, continue prazosin/anxiolytics, normal WBC, no fever chills, sodium 145, possible placement in 24 to 48 hours 06/01-patient continues to be confused and delirious, telemetry psych consultation obtained. Psychiatry recommendations as below Pharmacological:1. Agree with plan to discontinue Ativan as it may increase pt confusion and disorientation as well as lower seizure control and contribute to respiratory depression coupled with Zyprexa. 2. Start Seroquel 12.5mg po tid for mood lability and agitation 3. Continue Zyprexa 5mg po/im q 4h prn severe agitation. (hold if QTC over 500. current QTC 476) 4. Continue Zoloft 150mg po qd for depression Otherwise no overnight events. No fever chills, encourage oral fluids/nutrition support. Anticipate discharge in 48 hours pending clinical improvement 1124: Patient is reported to be agitated and acting out overnight. As a result, Zyprexa was changed back from p.o. to IM on as-needed basis for agitation and anxiety. Continue scheduled Seroquel and Zoloft. Continue hand mittens. Continue Montour and Dilaudid IV as needed for moderate and severe pain, respectively. Rest of the postsurgical care as per surgical team. Pending SNF placement. 06/03: Patient reported to be less agitated last night compared to previously. Mittens removed. Zyprexa not required. No other major overnight events. Patient denies any left hip pain. He is complaining of nausea. Continue scheduled Seroquel and Zoloft. Zyprexa IM PRN agitation and anxiety. Continue Montour and Dilaudid IV as needed for moderate and severe pain, respectively. Pending SNF placement on 06/06/22. 06/04: There was no reported agitations or self-harm behavior or harm to staff overnight. No Zyprexa IM was given overnight. Patient denies any left hip pain. Continue scheduled Seroquel and Zoloft. Change Zyprexa from IM to PO HS PRN agitation and anxiety. Continue Montour and Dilaudid IV as needed for moderate and severe pain, respectively. Pending SNF placement on 06/06/22. 06/05: There was no reported agitations or self-harm behavior or harm to staff overnight. No Zyprexa PO was given overnight. Patient denies any left hip pain. Continue Zoloft, Seroquel, and Zyprexa PRN agitation. Continue Montour and Dilaudid IV as needed for moderate and severe pain, respectively. Pending SNF placement on 06/06/22. 06/06: Patient is medically ready and being accepted by SNF, however, no transportation is could be arranged until tomorrow morning so we will keep the patient in- house until tomorrow morning to discharged. Continue Zoloft, Seroquel, and Zyprexa PRN agitation. Continue Montour and Dilaudid IV as needed for moderate and severe pain, respectively. Constitutional Vitals: Vital Signs Temp Pulse Resp BP Pulse Ox O2 Del Method O2 Flow Rate 36.7 C 88 20 136/75 96 2 06/06/22 12:00 06/06/22 12:00 06/06/22 12:00 06/06/22 12:00 06/06/22 12:00 06/06/22 12:00 05/29/22 11:29 Period Temp Pulse Resp BP Sys/Oliveros Pulse Ox O2 Del Method O2 Flow Rate Last 24 Hr 36.3 C-36.9 C 63-88 16-20 126-152/52-78 96-99 Room Air-Room Air Intake and Output 06/06/22 06/06/22 06/06/22 03:59 11:59 19:59 Intake Total 340 900 Output Total 1000 Balance -660 900 Weight 71.577 kg Intake & Output: Intake & Output 06/06/22 06/06/22 06/06/22 03:59 11:59 19:59 Intake Total 340 900 Output Total 1000 Balance -660 900 Weight 71.577 kg Intake: IV 100 Oral 240 900 Output: Urine Catheter Amount 1000 Other: Meal Apple sauce & 2x juice Percent of Meal Consumed 100% Feeding Ability Needs Supervision Urine Appearance Clear Urine Color Light Lena Stool Size Large Stool Color Brown Stool Consistency Soft Formed # Bowel Movements 1 Head Head exam: Present atraumatic and normal inspection Eye Eye exam: Present normal appearance ENT ENT exam: Present mucous membranes moist, normal exam and normal external ear exam Neck Neck exam: Present normal inspection Respiratory Respiratory exam: Present normal respiratory exam Cardiovascular Cardiovascular exam: Present normal rate and rhythm GI/Abdominal GI/Abdominal exam: Present normal bowel sounds Additional comments: Winslow catheter in place Extremities Exam Additional comments: Left lateral hip covered by surgical dressing Back Exam Back exam: Present normal inspection Neurological Exam Neurological exam: Present alert and altered; Absent oriented X3 Skin Skin exam: Present intact and warm OBJ DATA Labs CBC & Chem 7: 06/06/22 05:49 06/06/22 05:49 Labs: Abnormal Lab Results 06/06/22 06/06/22 06/05/22 05:49 05:49 05:15 RBC 2.68 L Hgb 8.4 L Hct 26.2 L RDW 15.1 H Immature Gran % (Auto) 3.0 H Immature Gran # 0.24 H Calcium 8.4 L 8.4 L AST 42 H ALT 42 H Total Protein 5.2 L 5.1 L Albumin 3.1 L Globulin 1.9 L 2.0 L 06/05/22 06/04/22 06/04/22 05:15 05:10 05:10 RBC 2.47 L 2.63 L Hgb 7.7 L 8.0 L Hct 24.0 L 25.5 L RDW 14.6 H Immature Gran % (Auto) 3.5 H 2.5 H Immature Gran # 0.27 H 0.20 H Calcium 8.2 L AST 49 H ALT 45 H Total Protein 5.4 L Albumin 3.1 L Globulin Meds: Medications Hydrocodone Bitart/Acetaminophen (Hydrocodone/Apap 5/325mg Tablet) 1 tab PO Q4HP PRN; Protocol PRN Reason: Per Pain Protocol Last Admin: 06/06/22 08:29 Dose: 1 tab Amlodipine Besylate (Amlodipine 10 Mg Tablet) 10 mg PO DAILY [facility] Last Admin: 06/06/22 08:33 Dose: 10 mg Artificial Tears (Carboxymethylcellulose Sodium 1 Each Droper.Gel) 0 each OD QID [facility] Last Admin: 06/06/22 08:38 Dose: 1 each Divalproex Sodium (Divalproex 125 Mg Cap.Sprink) 500 mg PO HS [facility] Last Admin: 06/05/22 20:58 Dose: 500 mg Docusate Sodium (Docusate Sodium 100 Mg Capsule) 100 mg PO BID [facility] Last Admin: 06/06/22 08:33 Dose: 100 mg Enoxaparin Sodium (Enoxaparin 40 Mg/0.4 Ml Syringe) 40 mg SQ DAILY [facility] Last Admin: 06/06/22 08:35 Dose: 40 mg Hydromorphone HCl (Hydromorphone 0.5 Mg/0.5 Ml Syringe) 0.5 mg IV Q2HP PRN; Protocol PRN Reason: Per Pain Protocol Last Admin: 06/02/22 01:15 Dose: 0.5 mg Acetaminophen (Ofirmev) 1,000 mg in 100 mls @ 200 mls/hr IV Q8H [facility]; Protocol Last Admin: 06/06/22 08:35 Dose: 200 mls/hr Levothyroxine Sodium (Levothyroxine 25 Mcg Tablet) 25 mcg PO ACB [facility] Last Admin: 06/06/22 08:27 Dose: 25 mcg Melatonin (Melatonin 3 Mg Tablet) 3 mg PO HSP [facility] Last Admin: 06/04/22 23:28 Dose: 3 mg Meloxicam (Meloxicam 7.5 Mg Tablet) 15 mg PO DAILY [facility] Last Admin: 06/06/22 08:32 Dose: 15 mg Memantine (Memantine 10 Mg Tablet) 5 mg PO BID [facility] Last Admin: 06/06/22 08:27 Dose: 5 mg Olanzapine (Olanzapine 5 Mg Tablet) 5 mg PO HS PRN PRN Reason: ANXIETY/SEDATION Omeprazole (Omeprazole 20 Mg Capsule) 20 mg PO ACB [facility] Last Admin: 06/06/22 08:33 Dose: 20 mg Ondansetron HCl (Ondansetron 4 Mg/2 Ml Vial) 4 mg IV Q6HP PRN PRN Reason: Nausea And Vomiting Phenytoin Sodium (Phenytoin Sod 100 Mg Capsule) 100 mg PO DAILY [facility] Last Admin: 06/06/22 08:28 Dose: 100 mg Phenytoin Sodium (Phenytoin Sod 100 Mg Capsule) 200 mg PO HS [facility] Last Admin: 06/05/22 20:59 Dose: 200 mg Prazosin HCl (Prazosin 1 Mg Capsule) 1 mg PO QHS [facility] Last Admin: 06/05/22 21:00 Dose: 1 mg Quetiapine Fumarate (Quetiapine 25 Mg Tablet) 12.5 mg PO TID [facility] Last Admin: 06/06/22 08:28 Dose: 12.5 mg Senna (Sennosides 1 Tablet) 2 tab PO HS [facility] Last Admin: 06/05/22 20:58 Dose: 2 tab Sertraline HCl (Sertraline 100 Mg Tablet) 150 mg PO QAM [facility] Last Admin: 06/06/22 08:28 Dose: 150 mg Sodium Chloride (0.9 % Sodium Chloride 10 Ml Syringe) 10 ml IV Q8 [facility] Last Admin: 06/06/22 05:56 Dose: 10 ml A/P Assessment and plan (1) Alzheimer's dementia with behavioral disturbance: Status: Acute (2) Fracture of hip, left, closed: Status: Acute Qualifiers: Encounter type: initial encounter Qualified Code(s): S72.002A - Fracture of unspecified part of neck of left femur, initial encounter for closed fracture (3) Acute urinary retention: Status: Acute (4) Epilepsy: Status: Chronic Comment: Grand mal status Qualifiers: Epilepsy type: unspecified Status epilepticus: with status epilepticus Intractability: not intractable Qualified Code(s): G40.901 - Epilepsy, unsp ecified, not intractable, with status epilepticus (5) Postoperative anemia: Status: Acute (6) Hypothyroidism (acquired): Status: Acute Narrative A/P Narrative: Assessment and Plans: 1. Left hip fracture, s/p ORIF by Dr. Castillo on 05/31: Continue Montour and Dilaudid IV as needed for moderate and severe pain, respectively. Rest of the postsurgical care as per surgical team. Pending SNF placement on Monday06/07/22 due to transportation Lovenox for DVT ppx 2. Alzheimer's Dementia with behavioral disturbance: Memantine Zoloft Seroquel Zyprexa PO PRN agitation/behavioral disturbance 3. Urinary retention: s/p Winslow catheter replacement by Dr. Cadena on 05/[address] in [address] until patient is recovered from his recent surgery 4. h/o Epilepsy: Depakote Dilantin 5. Postoperative anemia: cbc w/ auto diff in the morning to trend H/H 6. Hypothyroidism: Continue thyroid replacement therapy GI ppx: Prilosec DVT ppx: Lovenox Code status: DNR Prognosis: Stable Disposition: inpatient med surg; pending SNF placement on Monday06/07/22 due to transportation Time Spent With Patient Time: Total time spent is greater than 50% in coordination of care (as documented) at patient's floor/unit and/or counseling patient: Total time spent with greater than 50% in coordination of care (as documented) at patient's floor/unit and/or counseling patient:: 25 - 35 minutes
[2022-06-06] MEDS: ACETAMINOPHEN 500 MG TABLET PO SCH ×2 (16:51→23:42)
[2022-06-06] MEDS: SENNOSIDES 1 TABLET PO SCH (20:27)
[2022-06-06] MEDS: PRAZOSIN 1 MG CAPSULE PO SCH (20:28)
[2022-06-06] MEDS: DIVALPROEX 125 MG CAP.SPRINK PO SCH (20:28)
[2022-06-07] MEDS: 0.9 % SODIUM CHLORIDE 10 ML SYRINGE IV SCH (05:56)
[2022-06-07] MEDS: OMEPRAZOLE 20 MG CAPSULE PO SCH (06:47)
[2022-06-07] MEDS ORDERED: CALCIUM CARBONATE 500 MG TAB.CHEW CHEWED PRN (07:15)
[2022-06-07 07:20] LABS: Basophils # (Auto) 0.08 K/mcL (0.00-0.30); Eosinophils # (Auto) 0.32 K/mcL (0.00-0.70); Eosinophils % (Auto) 3.9 % (0.0-7.0); Hemoglobin 8.3 g/dL (13.7-17.5); Lymphocytes # (Auto) 2.01 K/mcL (1.50-4.80); Lymphocytes % (Auto) 24.5 % (15.5-49.0); Mean Cell Volume 102.7 fL (80.0-100.0); Mean Corpuscular HGB Conc 30.7 g/dL (31.0-36.0); Mean Platelet Volume 9.2 fL (8.8-12.5); Monocytes # (Auto) 0.76 K/mcL (0.10-0.90); Monocytes % (Auto) 9.3 % (1.0-12.0); Neutrophils % (Auto) 59.3 % (38.0-78.0); Platelet Count 407 K/mcL (140-440); RBC 2.63 M/mcL (4.63-6.08); Red Cell Distribution Width 15.9 % (11.5-14.5); WBC 8.2 K/mcL (4.5-11.0)
[2022-06-07] MEDS: ACETAMINOPHEN 500 MG TABLET PO SCH (07:47)
[2022-06-07] MEDS: LEVOTHYROXINE 25 MCG TABLET PO SCH (07:48)
[2022-06-07] MEDS: PHENYTOIN SOD 100 MG CAPSULE PO SCH (07:48)
[2022-06-07] MEDS: SERTRALINE 100 MG TABLET PO SCH (07:48)
[2022-06-07] MEDS: MELOXICAM 7.5 MG TABLET PO SCH (07:49)
[2022-06-07] MEDS: ENOXAPARIN 40 MG/0.4 ML SYRINGE SQ SCH (07:49)
[2022-06-07] MEDS: MEMANTINE 10 MG TABLET PO SCH (07:49)
[2022-06-07] MEDS: CARBOXYMETHYLCELLULOSE SODIUM 1 EACH DROPER.GEL OD SCH (07:50)
[2022-06-07] MEDS: QUEtiapine 25 MG TABLET PO SCH (07:55)
[2022-06-07] MEDS: amLODIPine 10 MG TABLET PO SCH (07:56)
[2022-06-07] MEDS: DOCUSATE SODIUM 100 MG CAPSULE PO SCH (08:02)
[2022-06-07 08:07] LABS: ALT/SGPT 29 U/L (<40); AST/SGOT 24 U/L (<40); Albumin/Globulin Ratio 1.4 (1.0-2.3); Alkaline Phosphatase 91 U/L (39-117); Bilirubin,Total 0.3 mg/dL (0.1-1.0); Blood Urea Nitrogen 13 mg/dL (8-23); Calcium 8.1 mg/dL (8.6-10.4); Carbon Dioxide 25 mmol/L (22-30); Chloride 103 mmol/L (96-108); Globulin 2.1 gm/dL (2.2-3.7); Glomerular Filtration Rate 78; Glucose 86 mg/dL (70-105)
--- NOTE | 2022-06-07 08:24 | Discharge Summary ---
Discharge Provider Provider IMPORTANT FOLLOW-UP INFORMATION FOR PCP: Patient information: Note initiated : 06/07/22 at 8:22 am Service Date, if different from initiated Date: [] Patient: Guilherme Yepez 81 y/o M admitted on 05/27/22 for FALL. Chief Complaint: [] Date of admission: 05/27/22 15:49 Discharge date: 06/07/22 Primary care physician: Daniel Hartman PA-C Attending physician on admission: Eugenio Calzada Pui Consults: 05/27/22 Consult to Physician [CONS] Stat Comment: Consulting Provider: Chito Castillo Reason For Exam: Physician to Consult Consult to Physician [CONS] Stat Comment: Consulting Provider: Khris Cyr Reason For Exam: Physician to Consult 05/31/22 15:13 Consult to Physician [CONS] Routine Comment: Consulting Provider: [facility] Reason For Exam: Physician to Consult 05/31/22 15:30 Consult to Physician [CONS] Routine Comment: Consulting Provider: Chris Cadena Reason For Exam: Physician to Consult Attending physician on discharge: Eugenio Calzada Pui COURSE Hospital Course Hospital course: Mr. Yepez is a 81-year-old male with a history of hypertension, hypothyroidism, seizure disorder, urinary retention and advanced dementia who lives in an assisted living facility and was brought into the emergency department for evaluation after being found down by the assisted living staff. Patient was unable to provide a history due to advanced dementia. The patient was found to have a left mildly displaced oblique subcapital fracture of the left hip as well as marked prostate enlargement resulting in massive urinary bladder distention and bilateral hydronephrosis and hydroureter. Orthopedic surgery was consulted, recommended surgical correction for the hip fracture. A Winslow catheter was placed in the emergency department. Hospital medicine was consulted for admission. I discussed the patient with his sister, Barbara, who decided that the patient's CODE STATUS would be DNR/DNI. 05/28 Patient had ORIF of the left hip fracture yesterday. Postoperatively the patient was severely agitated and not redirectable, the patient was given Zyprexa IM. This morning the patient is resting comfortably, continues with Winslow catheter. Urinalysis was not suggestive of UTI. 05/29 Patient had an assisted fall last night, no injuries sustained. Patient received Zyprexa last night, resting comfortably this morning.. Pharmacy completed home medication reconciliation and says the patient was taking Ativan 0.5 p.o. mg 3 times daily prior to admission. Will wean off Ativan to avoid benzodiazepine withdrawal. Added Seroquel 25 mg at bedtime. 05/30 Vital stable overnight, hemoglobin 8.0 today, will recheck this afternoon. Leukocytosis resolved. Sodium 150, started D5 IV fluid and will recheck sodium in the afternoon. 07/31-patient remains encephalopathic. Hemoglobin 8.7, intermittently cooperative however was agitated overnight requiring Zyprexa, DC Ativan, continue prazosin/anxiolytics, normal WBC, no fever chills, sodium 145, possible placement in 24 to 48 hours 06/01-patient continues to be confused and delirious, telemetry psych consultation obtained. Psychiatry recommendations as below Pharmacological:1. Agree with plan to discontinue Ativan as it may increase pt confusion and disorientation as well as lower seizure control and contribute to respiratory depression coupled with Zyprexa. 2. Start Seroquel 12.5mg po tid for mood lability and agitation 3. Continue Zyprexa 5mg po/im q 4h prn severe agitation. (hold if QTC over 500. current QTC 476) 4. Continue Zoloft 150mg po qd for depression Otherwise no overnight events. No fever chills, encourage oral fluids/nutrition support. Anticipate discharge in 48 hours pending clinical improvement 1124: Patient is reported to be agitated and acting out overnight. As a result, Zyprexa was changed back from p.o. to IM on as-needed basis for agitation and anxiety. Continue scheduled Seroquel and Zoloft. Continue hand mittens. Continue Fox and Dilaudid IV as needed for moderate and severe pain, respectively. Rest of the postsurgical care as per surgical team. Pending SNF placement. 06/03: Patient reported to be less agitated last night compared to previously. Mittens removed. Zyprexa not required. No other major overnight events. Patient denies any left hip pain. He is complaining of nausea. Continue scheduled Seroquel and Zoloft. Zyprexa IM PRN agitation and anxiety. Continue Fox and Dilaudid IV as needed for moderate and severe pain, respectively. Pending SNF placement on 06/06/22. 06/04: There was no reported agitations or self-harm behavior or harm to staff overnight. No Zyprexa IM was given overnight. Patient denies any left hip pain. Continue scheduled Seroquel and Zoloft. Change Zyprexa from IM to PO HS PRN agitation and anxiety. Continue Fox and Dilaudid IV as needed for moderate and severe pain, respectively. Pending SNF placement on 06/06/22. 06/05: There was no reported agitations or self-harm behavior or harm to staff overnight. No Zyprexa PO was given overnight. Patient denies any left hip pain. Continue Zoloft, Seroquel, and Zyprexa PRN agitation. Continue Fox and Dilaudid IV as needed for moderate and severe pain, respectively. Pending SNF placement on 06/06/22. 06/06: Patient is medically ready and being accepted by SNF, however, no transportation is could be arranged until tomorrow morning so we will keep the patient in- house until tomorrow morning to discharged. Continue Zoloft, Seroquel, and Zyprexa PRN agitation. Continue Fox and Dilaudid IV as needed for moderate and severe pain, respectively. 06/07: Discharged Discharge diagnosis: left hip fracture Time Spent with Patient Time attestation: Total time spent providing and/or coordinating discharge services: Time spent: Greater than 30 minutes EXAM Constitutional Vitals: Temp Pulse Resp BP Pulse Ox O2 Del Method O2 Flow Rate 36.6 C 94 H 20 158/47 100 2 06/07/22 06:38 06/07/22 06:38 06/07/22 06:38 06/07/22 06:38 06/07/22 06:38 06/07/22 06:38 05/29/22 11:29 General appearance: cooperative and no acute distress Head Head exam: Present atraumatic and normocephalic Eye Eye exam: Present EOMI and PERRL ENT ENT exam: Present mucous membranes moist, normal exam and normal external ear exam Neck Neck exam: Present normal inspection; Absent lymphadenopathy, tenderness or thyromegaly Respiratory Respiratory exam: Absent accessory muscle use, respiratory distress or wheezes Cardiovascular Cardiovascular exam: Present normal rate and rhythm; Absent JVD GI/Abdominal GI/Abdominal exam: Present normal bowel sounds and soft; Absent organomegaly or tenderness Rectal Rectal exam: Present deferred Additional comments: Winslow catheter in place Extremities Exam Extremities exam: Present normal capillary refill; Absent full ROM, normal inspection or tenderness Neurological Exam Neurological exam: Present alert, CN II-XII intact and oriented X3; Absent motor sensory deficit Psychiatric Psychiatric exam: Present normal affect and normal mood; Absent anxious or depressed Skin Skin exam: Present dry and intact Discharge Data Data Completed and Pending Labs on day of discharge: Labs from last 24 hours 06/07/22 06/07/22 06/07/22 05:57 05:57 05:57 WBC 8.2 RBC 2.63 L Hgb 8.3 L Hct 27.0 L MCV 102.7 H MCH 31.6 MCHC 30.7 L RDW 15.9 H Plt Count 407 MPV 9.2 Immature Gran % (Auto) 2.0 H Neut % (Auto) 59.3 Lymph % (Auto) 24.5 [place] % (Auto) 9.3 Eos % (Auto) 3.9 Baso % (Auto) 1.0 Lymph # (Auto) 2.01 [place] # (Auto) 0.76 Eos # (Auto) 0.32 Baso # (Auto) 0.08 Immature Gran # 0.16 H Absolute Neutrophils 4.87 Sodium 137 Potassium 4.5 Chloride 103 Carbon Dioxide 25 Anion Gap 9.0 BUN 13 Creatinine 0.9 GFR Calculation 78 Glucose 86 Calcium 8.1 L Total Bilirubin 0.3 AST 24 ALT 29 Alkaline Phosphatase 91 Troponin T 0.02 Total Protein 5.1 L Albumin 3.0 L Globulin 2.1 L Albumin/Globulin Ratio 1.4 Discharge Plan Patient/Caregiver Discharge Instructions Activity: increase activity as tolerated Diet: Regular Diet Instructions: Hip Fracture (GEN) Activity Restrictions/Additional Instructions: Resume home diet as tolerated. Dysphagia Level 5 with mildly thick liquids. Take all meals up in chair, sitting at 90 degrees, to prevent aspiration. Do the exercises at home that physical therapy gave you. Weight bearing as tolerated. Increase activity as tolerated. Use walker when up. Continue fall precautions. Use your ice packs as directed. Ice and elevation will help with pain and swelling. OT, PT, and ST with local home health agency. Therapy orders are in packet. You have the Silver dressing (a waterproof dressing) covering alex over your surgical incision. Leave Silver dressing in place until follow up appointment. You may shower with Silver dressing on. Pat dry after shower. No baths, pools, or hot tubs. Follow-up with Dr. Castillo in one week. Contact the office to schedule. Continue aggressive bowel regimen to prevent constipation. Take all medication as directed. All your medications are with your discharge paperwork. You will be taking Lovenox 40 mg SQ once daily for 18 more days to prevent blood clots. Coude Winslow catheter was placed on May 31 for acute urinary retention. Leave catheter in place until follow-up with Dr. Cadena or other local urologist. If you have any questions or concerns call your orthopedic surgeon before going to the emergency room. [facility] has an on-call physician 24 hours per day/7 days per week and can be reached at [phone]. Call for fevers above 100.5 or pain not controlled by medication. This discharge packet is provided to you to help keep you informed about your care. We want to ensure you get everything you need when you go home. You will also be receiving a call from us in a few days to follow up with you and see how you are doing since your discharge. This gives us a chance to listen to any concerns you maybe experiencing since you were discharged or any additional needs you may have, as well as providing us feedback on your care experience. We strive to always provide excellent care and thank you for your feedback and for choosing [facility]. Prescriptions: New hydrocodone-acetaminophen 5-325 mg Tablet 1 tab PO Q4H PRN (Reason: Pain) Qty: 40 0RF quetiapine 25 mg Tablet 12.5 mg PO TID 30 Days Qty: 45 0RF enoxaparin 40 mg/0.4 mL Syringe 40 mg SQ DAILY 18 Days Qty: 18 0RF docusate sodium 100 mg Capsule 100 mg PO BID 30 Days Qty: 60 0RF Continued bdqxcyrc-web-WV-lycopen-lutein [CertaVite Senior] 0.4-300-250 mg-mcg-mcg tablet See Rx Instructions .ROUTE .COMPLEX Qty: 31 11RF Dose Instruction: TAKE 1 TABLET BY MOUTH DAILY (8AM) Rx Instructions: TAKE 1 TABLET BY MOUTH DAILY (8AM) omeprazole 20 mg capsule,delayed release(DR/EC) 20 mg PO QAM Qty: 90 3RF amlodipine 10 mg tablet See Rx Instructions .ROUTE .COMPLEX Qty: 90 3RF Dose Instruction: TAKE 1 TABLET BY MOUTH DAILY IN THE MORNING (8AM) Rx Instructions: TAKE 1 TABLET BY MOUTH DAILY IN THE MORNING (8AM) ferrous sulfate 325 mg (65 mg iron) tablet 325 mg PO QDAY Qty: 90 3RF memantine 5 mg tablet 5 mg PO BID Qty: 180 3RF phenytoin sodium extended 100 mg capsule See Dose Instructions .ROUTE .COMPLEX Qty: 270 3RF Dose Instruction: Take 100mg in the morning and 200mg at bedtime Rx Instructions: Take 100mg in the morning and 200mg at bedtime ziprasidone HCl 20 mg capsule 20 mg PO BID Qty: 180 3RF Rx Instructions: give with food (meal/snack) levothyroxine 25 mcg tablet 25 mcg PO QDAY Qty: 90 3RF acetaminophen 325 mg tablet 325 mg PO BID PRN (Reason: pain) Qty: 60 4RF artificial tears(hypromellose) 0.5 % drops 2 drp OPHTHALMIC QID Qty: 30 4RF olopatadine 0.1 % drops 2 drp ophthalmic (eye) BID Qty: 5 5RF Rx Instructions: Instill 2 drops in affected eye twice daily (DME) 4 post cane Qty: 1 0RF Rx Instructions: Use as needed dialy (DME) FWW with seat Qty: 1 0RF Dose Instruction: As directed Rx Instructions: As directed (DME) Handicap Placard Qty: 1 0RF Rx Instructions: As directed divalproex 500 mg tablet,delayed release (DR/EC) 500 mg PO HS meloxicam 15 mg tablet 15 mg PO QDAY prazosin 1 mg capsule 1 mg PO QHS sertraline 100 mg tablet 150 mg PO QAM (DME) sm dry eye relief See Rx Instructions .ROUTE .MEDSUPPLY Rx Instructions: instill 2 drops into the ey four times daily. Changed lorazepam 0.5 mg tablet 0.25 mg PO BID Qty: 20 0RF Discontinued lorazepam 0.5 mg tablet 0.5 mg PO TID Other Ambulatory Orders: OT Discharge Order (Routine) Location: None Selected Ordered By: Eugenio Goldberg Physical Therapy at Discharge - General (Routine) Location: None Selected Ordered By: Eugenio Goldberg ST Discharge Order (Routine) Location: None Selected Ordered By: Eugenio Goldberg Follow Up Plan Follow up with: Chito Castillo MD [Physician] - (Make an appointment for 2 weeks from surgery that meets your transportation needs. ) Chris Cadena MD [Physician] - ( ) Daniel Hartman PA-C [Primary Care Provider] - Patient Disposition: Xfer Other Prognosis: Fair Rehab Potential: Good I certify that the patient requires SNF services: No Overall status at discharge: patient is progressing back to baseline Discharge Orders: Discharge Order (Routine); Ordered 06/07/22 Ordered By: Eugenio Goldberg
--- NOTE | 2022-06-08 10:52 | EKG ---
[facility] Test Date: 2022-06-07 Pat Name: Guilherme Yepez Department: [facility] Room: 112 Gender: Male Telecommunications Manager: : 1940 Requested By: Eugenio Goldberg Order Number: [id number] Reading MD: Marco Antonio Hubbard Measurements Intervals [place] Rate: 66 P: 72 TX: 185 QRS: 86 QRSD: 100 T: 70 QT: 435 QTc: 456 Interpretive Statements Sinus rhythm Borderline right axis deviation Low voltage, extremity leads Electronically Signed On 06-08-2022 10:52:07 PST by Marco Antonio Hubbard /[id number]
== END 2022-06-07 08:15 | disposition other institution (70) | DRG 522 ==
LOC: ED 02:16 → MEDSUROUT 11:27 → MEDSUR 15:49
PROVIDERS: ADMIT Internal Medicine; ATTEND Orthopaedic Surgery

== ENCOUNTER 2022-08-05 06:06 | Inpatient (IN) ==
[2022-08-05 06:33] LABS: POC Calcium, Ionized 1.11 (1.16-1.32); POC Creatinine 0.9 (0.6-1.2); POC Potassium 3.7 (3.3-5.1)
[2022-08-05 06:35] LABS: POC INR 1.4 (0.8-1.2); POC Pro Time 16.8 (11.9-14.5)
[2022-08-05 07:00] LABS: Basophils # (Auto) 0.06 K/mcL (0.00-0.30); Basophils % (Auto) 0.5 % (0.0-2.0); Eosinophils # (Auto) 0.05 K/mcL (0.00-0.70); Eosinophils % (Auto) 0.4 % (0.0-7.0); Hematocrit 35.5 % (40.1-51.0); Hemoglobin 11.2 g/dL (13.7-17.5); Lymphocytes # (Auto) 0.95 K/mcL (1.50-4.80); Lymphocytes % (Auto) 8.2 % (15.5-49.0); Mean Cell Volume 96.2 fL (80.0-100.0); Mean Corpuscular HGB Conc 31.5 g/dL (31.0-36.0); Mean Platelet Volume 9.7 fL (8.8-12.5); Monocytes % (Auto) 6.9 % (1.0-12.0); Neutrophils % (Auto) 83.6 % (38.0-78.0); Platelet Count 362 K/mcL (140-440); RBC 3.69 M/mcL (4.63-6.08); Red Cell Distribution Width 13.1 % (11.5-14.5); WBC 11.6 K/mcL (4.5-11.0)
[2022-08-05] MEDS ORDERED: ceFAZolin 2 GM in DEXTROSE 5% IN WATER 50 ML IV SCH (07:15)
[2022-08-05] MEDS ORDERED: SUGAMMADEX SODIUM 200 MG/2 ML VIAL IV ONE (07:33)
[2022-08-05] MEDS ORDERED: LIDOCAINE HCL/PF 100 MG/5 ML SYRINGE IV ONE (07:33)
[2022-08-05] MEDS ORDERED: fentaNYL 100 MCG/2 ML VIAL IV ONE (07:33)
[2022-08-05] MEDS ORDERED: ONDANSETRON 4 MG/2 ML VIAL ONE (07:33)
[2022-08-05] MEDS ORDERED: ROCURONIUM 10 MG/ML ML IV ONE (07:33)
[2022-08-05] MEDS ORDERED: PROPOFOL 200 MG/20 ML VIAL IV ONE (07:33)
[2022-08-05] MEDS ORDERED: TOBRAMYCIN SULFATE 1.2 GM VIAL TOPICAL ONE (08:00)
[2022-08-05] MEDS ORDERED: VANCOMYCIN 1 GM VIAL TOPICAL SCH (08:00)
[2022-08-05] MEDS ORDERED: ONDANSETRON 4 MG/2 ML VIAL IV PRN (08:34)
[2022-08-05] MEDS ORDERED: ACETAMINOPHEN 1,000 MG/100 ML BAG IV ONE (08:34)
[2022-08-05] MEDS ORDERED: ePHEDrine 50 MG/ML AMPUL IV PRN (08:34)
[2022-08-05] MEDS ORDERED: NALOXONE HCL 0.4 MG/ML VIAL IV PRN (08:34)
[2022-08-05] MEDS ORDERED: IPRATROPIUM/ALBUTEROL 3 ML AMPUL.NEB NEB PRN (08:34)
[2022-08-05] MEDS ORDERED: LACTATED RINGERS 1,000 ML IV SCH (08:45)
[2022-08-05] MEDS ORDERED: POLYETHYLENE GLYCOL 3350 17 GM PACKET PO PRN (08:50)
[2022-08-05] MEDS ORDERED: MAGNESIUM HYDROXIDE 30 ML ORAL.SUSP PO PRN (08:50)
[2022-08-05] MEDS ORDERED: FLEETS ADULT ENEMA PR PRN (08:50)
[2022-08-05] MEDS ORDERED: BISACODYL 10 MG SUPP.RECT PR PRN (08:50)
[2022-08-05] MEDS ORDERED: LORazepam 0.5 MG TABLET PO PRN (08:57)
[2022-08-05] MEDS ORDERED: traZODone HCL 50 MG TABLET PO PRN (08:57)
[2022-08-05] MEDS ORDERED: PEG HYPROMELLOSE GLYCERIN OPHTHALMIC SCH (09:00)
[2022-08-05] MEDS ORDERED: [UNRECOGNIZED DRUG - OTHER] OPHTHALMIC SCH (09:00)
[2022-08-05] MEDS ORDERED: ASPIRIN 325 MG ENTERIC COATED TABLET PO SCH (09:00)
[2022-08-05] MEDS ORDERED: ACETAMINOPHEN 325 MG TABLET PO PRN (09:12)
[2022-08-05] MEDS ORDERED: VANCOMYCIN PER PHARMACY IV SCH (09:27)
--- NOTE | 2022-08-05 09:33 | Brief Operative Note ---
Brief Operative Note Date of procedure: 08/05/22 Pre-op diagnosis: Infected left hip hemiarthroplasty, likely chronic Post-op diagnosis: same Procedure: 1)Irrigation and debridement of left hip joint, placement of abx beads 2)Revision of femoral componenet w replacement of femoral head and spacer Grafts/Implants: Yes (new 50 mm unipolar head, 0 neck spacer) Anesthesia: GLMA Findings: draining sinus down to joint Complications: none Surgeon: Chito Castillo [employer] Field Technician: Lena Tovar Estimated blood loss (cc): 100 Specimens Removed/Pathology: other (cx & sens superficial & deep, removed femoral head and neck spacer components) Condition: other (fair) Disposition: PACU
[2022-08-05] MEDS ORDERED: LABETALOL 5 MG/ML ML IV PRN (09:41)
[2022-08-05] MEDS: fentaNYL 100 MCG/2 ML VIAL IV PRN ×4 (09:58→10:25)
[2022-08-05] MEDS ORDERED: VANCOMYCIN 1,000 MG in 0.9 % SODIUM CHLORIDE 250 ML IV ONE (10:00)
--- NOTE | 2022-08-05 10:28 | XRay Report ---
CLINICAL INFORMATION: Left hip debridement COMPARISON: Preoperative film 08/04/2022 FINDINGS: Left hip prostheses in anatomic position. There are multiple dense antibiotic beads within the hip joint and also over the lateral soft tissues the proximal femur and the left acetabular region. Both SI and right hip joints are normal. IMPRESSION: Postoperative changes as described. Interpreted and Authenticated by: Arpan Lamas 08/05/22
[2022-08-05] MEDS: morphine 4 MG/ML VIAL IV PRN ×2 (11:15→17:42)
[2022-08-05] MEDS: 0.9 % SODIUM CHLORIDE 1,000 ML IV SCH ×2 (11:53→17:47)
[2022-08-05 11:55] LABS: Basophils # (Auto) 0.04 K/mcL (0.00-0.30); Basophils % (Auto) 0.3 % (0.0-2.0); Eosinophils # (Auto) 0.02 K/mcL (0.00-0.70); Eosinophils % (Auto) 0.1 % (0.0-7.0); Hematocrit 31.9 % (40.1-51.0); Hemoglobin 9.8 g/dL (13.7-17.5); Lymphocytes # (Auto) 0.65 K/mcL (1.50-4.80); Lymphocytes % (Auto) 4.8 % (15.5-49.0); Mean Cell Volume 97.9 fL (80.0-100.0); Mean Corpuscular HGB Conc 30.7 g/dL (31.0-36.0); Mean Platelet Volume 9.8 fL (8.8-12.5); Monocytes # (Auto) 0.72 K/mcL (0.10-0.90); Monocytes % (Auto) 5.4 % (1.0-12.0); Neutrophils % (Auto) 89.1 % (38.0-78.0); Platelet Count 309 K/mcL (140-440); RBC 3.26 M/mcL (4.63-6.08); Red Cell Distribution Width 13.1 % (11.5-14.5); WBC 13.4 K/mcL (4.5-11.0)
[2022-08-05 12:01] LABS: Erythrocyte Sedimentation Rate 37 mm/hr (0-20)
[2022-08-05] MEDS: LORazepam 0.5 MG TABLET PO SCH ×2 (12:06→20:53)
[2022-08-05] MEDS: MUPIROCIN OINT 2% 22GM TOPICAL SCH (12:08)
[2022-08-05] MEDS: SERTRALINE 100 MG TABLET PO SCH (12:09)
[2022-08-05] MEDS: LEVOTHYROXINE 25 MCG TABLET PO SCH (12:09)
[2022-08-05] MEDS: OMEPRAZOLE 20 MG CAPSULE PO SCH (12:09)
[2022-08-05] MEDS: DOCUSATE SODIUM 100 MG CAPSULE PO SCH ×2 (12:09→20:52)
[2022-08-05] MEDS: PHENYTOIN SOD 100 MG CAPSULE PO SCH ×2 (12:09→20:51)
[2022-08-05 12:16] LABS: ALT/SGPT 50 U/L (<40); AST/SGOT 88 U/L (<40); Albumin 2.7 gm/dL (3.2-5.2); Albumin/Globulin Ratio 0.9 (1.0-2.3); Alkaline Phosphatase 108 U/L (39-117); Bilirubin,Total 0.4 mg/dL (0.1-1.0); Blood Urea Nitrogen 20 mg/dL (8-23); Calcium 8.6 mg/dL (8.6-10.4); Carbon Dioxide 28 mmol/L (22-30); Chloride 104 mmol/L (96-108); Glomerular Filtration Rate 82; Glucose 115 mg/dL (70-105)
[2022-08-05] MEDS ORDERED: RIFAMPIN 600 MG in 0.9 % SODIUM CHLORIDE 100 ML IV SCH (13:30)
[2022-08-05] MEDS: HYDROcodone/APAP 5/325MG TABLET PO PRN ×2 (13:32→20:54)
--- NOTE | 2022-08-05 13:32 | Internal Medicine Consult Note ---
HPI Date of Consult Consult Date: 08/05/22 Requesting physician: Chito Castillo Primary Care Provider: Daniel Hartman PA-C Consult Narrative Patient Information: Note initiated : 08/05/22 at 1:22 pm Service Date, if different from initiated Date: [] Patient: Guilherme Yepez 81 y/o M admitted on 08/05/22 for Left Hip Irrigation & Debridement with Head Ball. Chief Complaint: [PJI] The patient has a complex past medical history significant for severe developmental delay, cognitive impairment, epilepsy, and recent fall in May resulting in a hip fracture. The patient underwent left hemiarthroplasty by orthopedic surgery however was lost to follow-up. His postoperative sutures remain in place for nearly 2 months. He had 2 follow-up appointments with his primary care physician recently. The patient has a financial power of tax attorney however does not have a healthcare power of tax attorney. Per social work, he was supposedly moved to [place] to a different facility however is now back at his previous adult family home. His daughter lives in [place] however previously declined making healthcare decisions for her father. The patient came in yesterday with purulent drainage and required a washout. The head ball was changed. Cultures intraoperatively performed. Antibiotic beads were placed. He still has cemented stem in place as orthopedic surgery believes that he would likely not survive a two-stage operative procedure. The hospitalist service has been consulted for antibiotic management. Chief complaint: Prosthetic joint infection Reason for consult: Abx mx cc:: CC: Chito Castillo Review of Systems ROS unobtainable: due to mental status PFSH PFSH All Active Problems (Updated 08/05/22 @ 13:27 by Meredith Lozada MD) Prosthetic joint infection (Acute) Fall from ground level (Acute) Dehiscence of wound (Acute) Decubitus ulcer of sacral region, stage 1 (Acute) COVID-19 (Acute) Hypothyroidism (acquired) (Acute) Postoperative anemia (Acute) Epilepsy (Chronic) Hyperlipidemia (Chronic) Hypertension, essential (Chronic) Profound developmental delay (Chronic) Balance problems (Acute) Dysphagia (Chronic) Urinary tract infection (Acute) Knee sprain (Acute) Constipation (Acute) Intellectual disability (Acute) Cognitive decline (Acute) Alzheimer's dementia with behavioral disturbance (Acute) Fall from ground level (Acute) Laceration (Acute) Conjunctivitis (Acute) Medicare annual wellness visit, subsequent (Acute) Dizziness (Acute) Grief (Acute) Anxiety (Acute) Chest pain (Acute) Grief reaction with prolonged bereavement (Acute) Alzheimer disease (Acute) Dementia (Acute) Irritation of both eyes (Acute) Suicidal ideation (Acute) Acute urinary retention (Acute) History of dementia (Acute) Fracture of hip, left, closed (Acute) Acute urinary retention (Acute) Medical History (Updated 08/05/22 @ 13:27 by Meredith Lozada MD) Alzheimer disease Chest pain Dysphagia Epilepsy 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 Lund Family History Father Cardiac disease Social History smoking status: Never smoker alcohol intake frequency: does not drink substance use type: does not use MEDS/ALLERGIES Home Medications and Allergies Home Medications Medication Instructions Recorded Confirmed Type 4 post cane #1 ea 07/14/16 08/05/22 Rx FWW with seat #1 ea 11/20/18 08/05/22 Rx Handicap Placard #1 ea 06/19/19 08/05/22 Rx [id number] acid 0.4 See Rx Instructions .Route 06/15/20 08/05/22 Rx mg-lycopene 300 mcg-lutein 250 mcg .COMPLEX #31 tabs tablet ([employer] Senior) acetaminophen 325 mg tablet 325 mg PO BID PRN pain #60 tabs 11/30/21 08/05/22 Rx artificial tears(hypromellose) 0.5 2 drp ophthalmic (eye) QID dry 04/06/22 08/05/22 Rx % eye drops eyes #30 mL meloxicam 15 mg tablet 15 mg PO QDAY 05/11/22 08/05/22 History amlodipine 10 mg tablet See Rx Instructions .Route 07/20/22 08/05/22 Rx .COMPLEX #90 tabs divalproex 500 mg tablet,delayed 500 mg PO HS #30 tabs 07/20/22 08/05/22 Rx release ferrous sulfate 325 mg (65 mg 325 mg PO QDAY #90 tabs 07/20/22 08/05/22 Rx iron) tablet levothyroxine 25 mcg tablet 25 mcg PO QDAY #90 tabs 07/20/22 08/05/22 Rx memantine 5 mg tablet 5 mg PO BID #180 tabs 07/20/22 08/05/22 Rx olopatadine 0.1 % eye drops 2 drp ophthalmic (eye) BID #5 mL 07/20/22 08/05/22 Rx omeprazole 20 mg capsule,delayed 20 mg PO QAM #90 caps 07/20/22 08/05/22 Rx release phenytoin sodium extended 100 mg See Dose Instructions .Route 07/20/22 08/05/22 Rx capsule .COMPLEX #270 caps prazosin 1 mg capsule 1 mg PO QHS #90 caps 07/20/22 08/05/22 Rx sertraline 100 mg tablet 150 mg PO QAM #135 tabs 07/20/22 08/05/22 Rx ziprasidone HCl 20 mg capsule 20 mg PO BID Dementia/anxiety #180 07/20/22 08/05/22 Rx caps peg [id number] 1 2 drp ophthalmic (eye) QID for dry 07/21/22 08/05/22 Rx %-0.2 %-0.2 % eye drops (Dry Eye eyes #30 mL Relief) lorazepam 0.5 mg tablet 0.25 mg PO BID #30 tabs 07/28/22 08/05/22 Rx mupirocin 2 % topical ointment 1 applic topical QDAY #22 grams 08/01/22 08/05/22 Rx hydrocodone 5 mg-acetaminophen 325 1 tab PO TID pain #90 tabs 08/03/22 08/05/22 Rx mg tablet lorazepam 0.5 mg tablet 0.5 mg PO BID PRN AXIENTY 08/03/22 08/05/22 History quetiapine 25 mg tablet 25 mg PO QHS 08/03/22 08/05/22 History trazodone 50 mg tablet 50 mg PO QHS PRN Agitation 08/03/22 08/05/22 History Allergies Allergy/AdvReac Type Severity Reaction Status Date / Time No Known Drug Allergies Allergy Verified 08/05/22 06:27 EXAM Constitutional Vitals: Temp Pulse Resp BP Pulse Ox O2 Del Method O2 Flow Rate 97.5 F 76 16 164/96 97 Room Air 0 08/05/22 11:50 08/05/22 11:50 08/05/22 11:50 08/05/22 11:50 08/05/22 11:50 08/05/22 11:50 08/05/22 11:36 General appearance: average body habitus Head Head exam: Present atraumatic, normal inspection and normocephalic Eye Eye exam: Present EOMI, normal appearance and PERRL; Absent conjunctival injection ENT ENT exam: Present normal exam; Absent mucous membranes dry Neck Neck exam: Present full ROM; Absent lymphadenopathy Respiratory Respiratory exam: Present normal respiratory exam and CTAB; Absent decreased breath sounds, respiratory distress or wheezes Cardiovascular Cardiovascular exam: Present normal rate and rhythm and RRR; Absent JVD GI/Abdominal GI/Abdominal exam: Present normal bowel sounds and soft; Absent diminished bowel sounds, distended, guarding, mass, rebound or tenderness Neurological Exam Neurological exam: Present alert Psychiatric Psychiatric exam: Present normal affect and normal mood Skin Skin exam: Present intact and warm; Absent erythema, pallor, petechiae or rash DATA Data Completed and Pending Labs: Labs from last 24 hours 08/05/22 08/05/22 08/05/22 11:14 11:14 06:33 WBC 13.4 H RBC 3.26 L Hgb 9.8 L Hct 31.9 L POC Hct MCV 97.9 MCH 30.1 MCHC 30.7 L RDW 13.1 Plt Count 309 MPV 9.8 Immature Gran % (Auto) 0.3 Neut % (Auto) 89.1 H Lymph % (Auto) 4.8 L [place] % (Auto) 5.4 Eos % (Auto) 0.1 Baso % (Auto) 0.3 Lymph # (Auto) 0.65 L [place] # (Auto) 0.72 Eos # (Auto) 0.02 Baso # (Auto) 0.04 Immature Gran # 0.04 Absolute Neutrophils 11.97 H ESR 37 H POC PT 16.8 H POC INR 1.4 H POC Sodium Sodium 139 POC Potassium Potassium 4.2 POC Chloride Chloride 104 Carbon Dioxide 28 POC Total CO2 Anion Gap 7.0 L POC BUN BUN 20 Creatinine 0.8 POC Creatinine GFR Calculation 82 Glucose 115 H POC Glucose Calcium 8.6 POC WB Ioniz Calcium Total Bilirubin 0.4 AST 88 H ALT 50 H Alkaline Phosphatase 108 C-Reactive Protein 8.40 H Total Protein 5.7 L Albumin 2.7 L Globulin 3.0 Albumin/Globulin Ratio 0.9 L 08/05/22 08/05/22 06:30 06:28 WBC 11.6 H RBC 3.69 L Hgb 11.2 L Hct 35.5 L POC Hct 34.0 L MCV 96.2 MCH 30.4 MCHC 31.5 RDW 13.1 Plt Count 362 MPV 9.7 Immature Gran % (Auto) 0.4 Neut % (Auto) 83.6 H Lymph % (Auto) 8.2 L [place] % (Auto) 6.9 Eos % (Auto) 0.4 Baso % (Auto) 0.5 Lymph # (Auto) 0.95 L [place] # (Auto) 0.80 Eos # (Auto) 0.05 Baso # (Auto) 0.06 Immature Gran # 0.05 Absolute Neutrophils 9.68 H ESR POC PT POC INR POC Sodium 141 Sodium POC Potassium 3.7 Potassium POC Chloride 104 Chloride Carbon Dioxide POC Total CO2 28.0 Anion Gap POC BUN 24 H BUN Creatinine POC Creatinine 0.9 GFR Calculation Glucose POC Glucose 117 H Calcium POC WB Ioniz Calcium 1.11 L Total Bilirubin AST ALT Alkaline Phosphatase C-Reactive Protein Total Protein Albumin Globulin Albumin/Globulin Ratio A/P Assessment and plan (1) Fall from ground level: Status: Acute (2) Dehiscence of wound: Status: Acute (3) Decubitus ulcer of sacral region, stage 1: Status: Acute (4) Profound developmental delay: Status: Chronic (5) Prosthetic joint infection: Status: Acute Narrative A/P Narrative: #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 The biofilm can be quite fastidious and difficult to eradicate. -Unlikely via hematogenous spread. The patient had his alex in place for nearly 2 months and developed purulent drainage. There may have been contiguous spread -He underwent joint washout with antibiotic bead placement. Orthopedic surgery believes that he would not survive the staged second surgery to remove the cemented stem. -In terms of antibiotic therapy, rifampin is required for the fastidious biofilm however this has a severe interaction with his antiepileptic therapy as he is on phenytoin. We will continue MRSA coverage with vancomycin and he will be placed on cefepime as well. -We will follow-up closely with wound care cultures -I have obtained ESR and CRP -Telemetry infectious disease consult may be obtained in the morning -The patient will require a goals of care discussion Thank you for allowing me to participate in the care of this patient. I will continue to follow along. Please do not hesitate to call with any questions or concerns. Time Spent With Patient Time: Total time spent is greater than 50% in coordination of care (as documented) at patient's floor/unit and/or counseling patient: Initial: Total time with patient: 55 - 74 minutes
[2022-08-05] MEDS ORDERED: CEFEPIME 2 GM VIAL IV SCH (14:00)
[2022-08-05] MEDS ORDERED: VANCOMYCIN 1,000 MG in 0.9 % SODIUM CHLORIDE 250 ML IV SCH ×2 (15:00→21:00)
[2022-08-05] MEDS: CARBOXYMETHYLCELLULOSE SODIUM 1 EACH DROPER.GEL OP SCH ×3 (16:39→20:51)
[2022-08-05] MEDS: 0.9 % SODIUM CHLORIDE 10 ML SYRINGE IV SCH ×3 (16:39→20:58)
[2022-08-05] MEDS ORDERED: HYDROmorphone 1 MG/ML SYRINGE IV PRN (17:00)
[2022-08-05] MEDS: QUEtiapine 25 MG TABLET PO SCH (20:52)
[2022-08-05] MEDS: PRAZOSIN 1 MG CAPSULE PO SCH (20:53)
[2022-08-05] MEDS: DIVALPROEX SODIUM 250 MG TABLET PO SCH (20:53)
[2022-08-05] MEDS: ZIPRASIDONE 20 MG PO SCH (20:57)
[2022-08-05] MEDS: SENNOSIDES 1 TABLET PO SCH (20:57)
[2022-08-05] MEDS: Olopatadine 0.1 % drops OP SCH (20:57)
[2022-08-05] MEDS ORDERED: NON FORMULARY MEDICATION 1 DOSE MISCELL (Divalproex 500 mg tablet,delayed release (DR/EC)) PO SCH (21:00)
[2022-08-05] MEDS ORDERED: MEMANTINE 10 MG TABLET PO SCH (21:00)
[2022-08-06] MEDS: 0.9 % SODIUM CHLORIDE 10 ML SYRINGE IV SCH ×6 (06:00→21:40)
--- NOTE | 2022-08-06 07:56 | Orthopedic Progress Note ---
SUBJECTIVE Subjective Patient information: Note initiated : 08/06/22 at 7:55 am Service Date, if different from initiated Date: [] Patient: Guilherme Yepez 81 y/o M admitted on 08/05/22 for Left Hip Irrigation & Debridement with Head Ball. Chief Complaint: [Pt is stable this morning on post operative day without any significant concerns or complaints. Patients vital signs have remained stable. Patients dressing is dry and is grossly intact from a neurovascular and motor standpoint. Patients 10 point ROS is otherwise negative. ] Constitutional Vitals: Vital Signs Temp Pulse Resp BP Pulse Ox O2 Del Method O2 Flow Rate 98.3 F 68 16 113/62 99 Room Air 0 08/06/22 03:35 08/06/22 03:35 08/06/22 03:35 08/06/22 03:35 08/06/22 03:35 08/06/22 03:35 08/05/22 11:36 Period Temp Pulse Resp BP Sys/Oliveros Pulse Ox O2 Del Method O2 Flow Rate Last 24 Hr 97.5 F-99.5 F 66-89 14-34 113-176/60-97 95-100 Room Air-Room Air 0-0 Intake and Output 08/05/22 08/06/22 08/06/22 19:59 03:59 11:59 Intake Total 818 240 240 Balance 818 240 240 Weight 138 lb 3.2 oz Intake & Output: Intake & Output 08/05/22 08/06/22 08/06/22 19:59 03:59 11:59 Intake Total 818 240 240 Balance 818 240 240 Weight 138 lb 3.2 oz Intake: IV 58 Sodium Chloride 0.9% 1,000 ml @ 58 100 mls/hr IV .Q10H [facility] Rx#: [id number] Oral 760 240 240 Other: Meal Dinner applesauce & juice Juice Percent of Meal Consumed 10 100% 100% Feeding Ability Needs Supervision Total Assistance Assist with Tray Set Up Urine Appearance Straight Cloudy Urine Color Straight Yellow Urine Odor Straight Foul Extremities Exam Extremities exam: Present normal inspection, Foot pink and warm and neurovascular intact OBJ DATA Labs 08/05/22 11:14 08/05/22 11:14 Labs: Abnormal Lab Results 08/05/22 08/05/22 08/05/22 13:37 13:37 11:14 WBC RBC Hgb Hct POC Hct MCHC Neut % (Auto) Lymph % (Auto) Lymph # (Auto) Absolute Neutrophils ESR 52 H POC PT POC INR Anion Gap 7.0 L POC BUN Glucose 115 H POC Glucose POC WB Ioniz Calcium AST 88 H ALT 50 H C-Reactive Protein 9.90 H 8.40 H Total Protein 5.7 L Albumin 2.7 L Albumin/Globulin Ratio 0.9 L 08/05/22 08/05/22 08/05/22 11:14 06:33 06:30 WBC 13.4 H RBC 3.26 L Hgb 9.8 L Hct 31.9 L POC Hct 34.0 L MCHC 30.7 L Neut % (Auto) 89.1 H Lymph % (Auto) 4.8 L Lymph # (Auto) 0.65 L Absolute Neutrophils 11.97 H ESR 37 H POC PT 16.8 H POC INR 1.4 H Anion Gap POC BUN 24 H Glucose POC Glucose 117 H POC WB Ioniz Calcium 1.11 L AST ALT C-Reactive Protein Total Protein Albumin Albumin/Globulin Ratio 08/05/22 06:28 WBC 11.6 H RBC 3.69 L Hgb 11.2 L Hct 35.5 L POC Hct MCHC Neut % (Auto) 83.6 H Lymph % (Auto) 8.2 L Lymph # (Auto) 0.95 L Absolute Neutrophils 9.68 H ESR POC PT POC INR Anion Gap POC BUN Glucose POC Glucose POC WB Ioniz Calcium AST ALT C-Reactive Protein Total Protein Albumin Albumin/Globulin Ratio Meds: Medications Acetaminophen (Acetaminophen 325 Mg Tablet) 325 mg PO BIDP PRN PRN Reason: pain Hydrocodone Bitart/Acetaminophen (Hydrocodone/Apap 5/325mg Tablet) 0 tab PO Q4HP PRN; Protocol PRN Reason: Per Pain Protocol Last Admin: 08/05/22 20:54 Dose: 2 tab Artificial Tears (Carboxymethylcellulose Sodium 1 Each Droper.Gel) 2 each OP QID [facility] Last Admin: 08/05/22 20:51 Dose: 2 each Bisacodyl (Bisacodyl 10 Mg Supp.Rect) 10 mg [place] Q2-3DAYS PRN PRN Reason: Constipation Divalproex Sodium (Divalproex Sodium 250 Mg Tablet) 500 mg PO [facility] Last Admin: 08/05/22 20:53 Dose: 500 mg Docusate Sodium (Docusate Sodium 100 Mg Capsule) 100 mg PO BID [facility] Last Admin: 08/05/22 20:52 Dose: 100 mg Heparin Sodium (Porcine) (Heparin Flush 10 Units/Ml 5 Ml Syringe) 2 ml IV Q12 [facility] Last Admin: 08/05/22 20:53 Dose: 2 ml Hydromorphone HCl (Hydromorphone 1 Mg/Ml Syringe) 0.5 - 2 mg IV Q2HP PRN; Protocol PRN Reason: Per Pain Protocol Sodium Chloride (Sodium Chloride 0.9%) 1,000 mls @ 100 mls/hr IV .Q10H [facility] Last Admin: 08/05/22 17:47 Dose: Not Given Levothyroxine Sodium (Levothyroxine 25 Mcg Tablet) 25 mcg PO QDAY [facility] Last Admin: 08/05/22 12:09 Dose: Not Given Lorazepam (Lorazepam 0.5 Mg Tablet) 0.25 mg PO BID [facility] Last Admin: 08/05/22 20:53 Dose: 0.25 mg Lorazepam (Lorazepam 0.5 Mg Tablet) 0.5 mg PO BIDP PRN PRN Reason: AXIENTY Lorazepam (Lorazepam 2 Mg/Ml Vial) 0 mg IV Q1HP PRN; Protocol PRN Reason: ANXIETY/SEDATION Morphine Sulfate (Morphine 4 Mg/Ml Vial) 0 mg IV Q1HP PRN; Protocol PRN Reason: Per Pain Protocol Last Admin: 08/05/22 17:42 Dose: 4 mg Mupirocin (Mupirocin Oint 2% 22gm) 1 dose TOPICAL QDAY [facility] Last Admin: 08/05/22 12:08 Dose: Not Given Ziprasidone 20mg 1 each PO BID [facility] Last Admin: 08/05/22 20:57 Dose: 1 each Omeprazole (Omeprazole 20 Mg Capsule) 20 mg PO QAM [facility] Last Admin: 08/05/22 12:09 Dose: Not Given Olopatadine 0.1 % (Drops) 2 dose OP BID [facility] Last Admin: 08/05/22 20:57 Dose: Not Given Phenytoin Sodium (Phenytoin Sod 100 Mg Capsule) 100 mg PO QAM [facility] Last Admin: 08/05/22 12:09 Dose: Not Given Phenytoin Sodium (Phenytoin Sod 100 Mg Capsule) 200 mg PO HS [facility] Last Admin: 08/05/22 20:51 Dose: 200 mg Polyethylene Glycol (Polyethylene Glycol 3350 17 Gm Packet) 17 gm PO DAILYP PRN PRN Reason: Constipation Prazosin HCl (Prazosin 1 Mg Capsule) 1 mg PO QHS [facility] Last Admin: 08/05/22 20:53 Dose: 1 mg Quetiapine Fumarate (Quetiapine 25 Mg Tablet) 25 mg PO QHS [facility] Last Admin: 08/05/22 20:52 Dose: 25 mg Senna (Sennosides 1 Tablet) 2 tab PO HS [facility] Last Admin: 08/05/22 20:57 Dose: 2 tab Sertraline HCl (Sertraline 100 Mg Tablet) 150 mg PO QAM [facility] Last Admin: 08/05/22 12:09 Dose: Not Given Sodium Biphosphate/Sodium Phosphate (Fleets Adult Enema) 1 dose [place] Q3-4DAYS PRN PRN Reason: Constipation Sodium Chloride (0.9 % Sodium Chloride 10 Ml Syringe) 10 ml IV Q8 [facility] Last Admin: 08/05/22 20:58 Dose: Not Given Sodium Chloride (0.9 % Sodium Chloride 10 Ml Syringe) 10 ml IV Q8 [facility] Last Admin: 08/05/22 20:58 Dose: 10 ml Trazodone HCl (Trazodone Hcl 50 Mg Tablet) 50 mg PO HSP PRN PRN Reason: Agitation A/P Narrative A/P Narrative: The patient has been educated regarding dressing care, , restrictions, and follow up appointments. The patient has had all necessary DME prescribed. The patient has remained relatively stable during their hospital course. Cleared by Ortho for return to SNF when cleared by hospitalist Time Spent With Patient Time: Total time spent is greater than 50% in coordination of care (as documented) at patient's floor/unit and/or counseling patient: Initial: Total time with patient: Less than 40 minutes Subsequent: Total time with patient: Less than 25 minutes Critical Care Time: No
[2022-08-06] MEDS: morphine 4 MG/ML VIAL IV PRN ×4 (08:33→17:41)
[2022-08-06] MEDS: LEVOTHYROXINE 25 MCG TABLET PO SCH (08:35)
[2022-08-06] MEDS: DOCUSATE SODIUM 100 MG CAPSULE PO SCH ×2 (08:35→21:39)
[2022-08-06] MEDS: LORazepam 0.5 MG TABLET PO SCH ×2 (08:35→21:40)
[2022-08-06] MEDS: OMEPRAZOLE 20 MG CAPSULE PO SCH (08:35)
[2022-08-06] MEDS: PHENYTOIN SOD 100 MG CAPSULE PO SCH ×2 (08:35→22:09)
[2022-08-06] MEDS: HYDROcodone/APAP 5/325MG TABLET PO PRN ×2 (08:36→14:54)
[2022-08-06] MEDS: SERTRALINE 100 MG TABLET PO SCH (08:36)
[2022-08-06] MEDS: ZIPRASIDONE 20 MG PO SCH ×2 (08:37→22:10)
[2022-08-06] MEDS ORDERED: amLODIPine 10 MG TABLET PO SCH (09:00)
--- NOTE | 2022-08-06 09:12 | Internal Med Progress Note ---
SUBJECTIVE Subjective Patient information: Note initiated : 08/06/22 at 9:10 am Service Date, if different from initiated Date: [] Patient: Guilherme Yepez 81 y/o M admitted on 08/05/22 for Left Hip Irrigation & Debridement with Head Ball. Chief Complaint: [Purulent drainage from hip] Principal diagnosis: Prosthetic joint infection Interval history: Had a multidisciplinary meeting regarding goals of care. Discussed the case with the sister who is next of kin and power of securities attorney. Constitutional Vitals: Vital Signs Temp Pulse Resp BP Pulse Ox O2 Del Method O2 Flow Rate 98.3 F 68 16 113/62 99 Room Air 0 08/06/22 03:35 08/06/22 03:35 08/06/22 03:35 08/06/22 03:35 08/06/22 03:35 08/06/22 03:35 08/05/22 11:36 Period Temp Pulse Resp BP Sys/Oliveros Pulse Ox O2 Del Method O2 Flow Rate Last 24 Hr 97.5 F-99.5 F 66-89 14-34 113-176/60-97 95-100 Room Air-Room A ir 0-0 Intake and Output 08/05/22 08/06/22 08/06/22 19:59 03:59 11:59 Intake Total 818 240 240 Balance 818 240 240 Weight 62.686 kg Intake & Output: Intake & Output 08/05/22 08/06/22 08/06/22 19:59 03:59 11:59 Intake Total 818 240 240 Balance 818 240 240 Weight 62.686 kg Intake: IV 58 Sodium Chloride 0.9% 1,000 ml @ 58 100 mls/hr IV .Q10H [facility] Rx#: [id number] Oral 760 240 240 Other: Meal Dinner applesauce & juice Juice Percent of Meal Consumed 10 100% 100% Feeding Ability Needs Supervision Total Assistance Assist with Tray Set Up Urine Appearance Straight Cloudy Urine Color Straight Yellow Urine Odor Straight Foul Head Head exam: Present atraumatic and normal inspection Eye Eye exam: Present normal appearance ENT ENT exam: Present mucous membranes moist, normal exam and normal external ear exam Neck Neck exam: Present normal inspection Respiratory Respiratory exam: Present normal respiratory exam Cardiovascular Cardiovascular exam: Present normal rate and rhythm GI/Abdominal GI/Abdominal exam: Present normal bowel sounds Additional comments: Winslow catheter in place Extremities Exam Additional comments: Left lateral hip covered by surgical dressing Back Exam Back exam: Present normal inspection Neurological Exam Neurological exam: Present alert and altered; Absent oriented X3 Psychiatric Psychiatric exam: Present normal mood; Absent agitated Skin Skin exam: Present intact and warm OBJ DATA Labs 08/05/22 11:14 08/05/22 11:14 Labs: Abnormal Lab Results 08/05/22 08/05/22 08/05/22 13:37 13:37 11:14 WBC RBC Hgb Hct POC Hct MCHC Neut % (Auto) Lymph % (Auto) Lymph # (Auto) Absolute Neutrophils ESR 52 H POC PT POC INR Anion Gap 7.0 L POC BUN Glucose 115 H POC Glucose POC WB Ioniz Calcium AST 88 H ALT 50 H C-Reactive Protein 9.90 H 8.40 H Total Protein 5.7 L Albumin 2.7 L Albumin/Globulin Ratio 0.9 L 08/05/22 08/05/22 08/05/22 11:14 06:33 06:30 WBC 13.4 H RBC 3.26 L Hgb 9.8 L Hct 31.9 L POC Hct 34.0 L MCHC 30.7 L Neut % (Auto) 89.1 H Lymph % (Auto) 4.8 L Lymph # (Auto) 0.65 L Absolute Neutrophils 11.97 H ESR 37 H POC PT 16.8 H POC INR 1.4 H Anion Gap POC BUN 24 H Glucose POC Glucose 117 H POC WB Ioniz Calcium 1.11 L AST ALT C-Reactive Protein Total Protein Albumin Albumin/Globulin Ratio 08/05/22 06:28 WBC 11.6 H RBC 3.69 L Hgb 11.2 L Hct 35.5 L POC Hct MCHC Neut % (Auto) 83.6 H Lymph % (Auto) 8.2 L Lymph # (Auto) 0.95 L Absolute Neutrophils 9.68 H ESR POC PT POC INR Anion Gap POC BUN Glucose POC Glucose POC WB Ioniz Calcium AST ALT C-Reactive Protein Total Protein Albumin Albumin/Globulin Ratio Meds: Medications Acetaminophen (Acetaminophen 325 Mg Tablet) 325 mg PO BIDP PRN PRN Reason: pain Hydrocodone Bitart/Acetaminophen (Hydrocodone/Apap 5/325mg Tablet) 0 tab PO Q4HP PRN; Protocol PRN Reason: Per Pain Protocol Last Admin: 08/06/22 08:36 Dose: 2 tab Artificial Tears (Carboxymethylcellulose Sodium 1 Each Droper.Gel) 2 each OP QID [facility] Last Admin: 08/05/22 20:51 Dose: 2 each Bisacodyl (Bisacodyl 10 Mg Supp.Rect) 10 mg MA Q2-3DAYS PRN PRN Reason: Constipation Divalproex Sodium (Divalproex Sodium 250 Mg Tablet) 500 mg PO HS [facility] Last Admin: 08/05/22 20:53 Dose: 500 mg Docusate Sodium (Docusate Sodium 100 Mg Capsule) 100 mg PO BID [facility] Last Admin: 08/06/22 08:35 Dose: 100 mg Heparin Sodium (Porcine) (Heparin Flush 10 Units/Ml 5 Ml Syringe) 2 ml IV Q12 [facility] Last Admin: 08/06/22 08:35 Dose: 2 ml Hydromorphone HCl (Hydromorphone 1 Mg/Ml Syringe) 0.5 - 2 mg IV Q2HP PRN; Protocol PRN Reason: Per Pain Protocol Sodium Chloride (Sodium Chloride 0.9%) 1,000 mls @ 100 mls/hr IV .Q10H [facility] Last Admin: 08/05/22 17:47 Dose: Not Given Levothyroxine Sodium (Levothyroxine 25 Mcg Tablet) 25 mcg PO QDAY [facility] Last Admin: 08/06/22 08:35 Dose: 25 mcg Lorazepam (Lorazepam 0.5 Mg Tablet) 0.25 mg PO BID [facility] Last Admin: 08/06/22 08:35 Dose: 0.25 mg Lorazepam (Lorazepam 0.5 Mg Tablet) 0.5 mg PO BIDP PRN PRN Reason: AXIENTY Lorazepam (Lorazepam 2 Mg/Ml Vial) 0 mg IV Q1HP PRN; Protocol PRN Reason: ANXIETY/SEDATION Morphine Sulfate (Morphine 4 Mg/Ml Vial) 0 mg IV Q1HP PRN; Protocol PRN Reason: Per Pain Protocol Last Admin: 08/06/22 08:33 Dose: 4 mg Mupirocin (Mupirocin Oint 2% 22gm) 1 dose TOPICAL QDAY [facility] Last Admin: 08/05/22 12:08 Dose: Not Given Ziprasidone 20mg 1 each PO BID [facility] Last Admin: 08/06/22 08:37 Dose: 1 each Omeprazole (Omeprazole 20 Mg Capsule) 20 mg PO QAM [facility] Last Admin: 08/06/22 08:35 Dose: 20 mg Olopatadine 0.1 % (Drops) 2 dose OP BID [facility] Last Admin: 08/05/22 20:57 Dose: Not Given Phenytoin Sodium (Phenytoin Sod 100 Mg Capsule) [facility] [place] Last Admin: 08/06/22 08:35 Dose: 100 mg Phenytoin Sodium (Phenytoin Sod 100 Mg Capsule) 200 mg PO [facility] Last Admin: 08/05/22 20:51 Dose: 200 mg Polyethylene Glycol (Polyethylene Glycol 3350 17 Gm Packet) 17 gm PO DAILYP PRN PRN Reason: Constipation Prazosin HCl (Prazosin 1 Mg Capsule) [facility] Last Admin: 08/05/22 20:53 Dose: 1 mg Quetiapine Fumarate (Quetiapine 25 Mg Tablet) [facility] Last Admin: 08/05/22 20:52 Dose: 25 mg Senna (Sennosides 1 Tablet) 2 tab PO [facility] Last Admin: 08/05/22 20:57 Dose: 2 tab Sertraline HCl (Sertraline 100 Mg Tablet) 150 mg PO [facility] Last Admin: 08/06/22 08:36 Dose: 150 mg Sodium Biphosphate/Sodium Phosphate (Fleets Adult Enema) 1 dose MA Q3-4DAYS PRN PRN Reason: Constipation Sodium Chloride (0.9 % Sodium Chloride 10 Ml Syringe) 10 ml IV Q8 [facility] Last Admin: 08/05/22 20:58 Dose: Not Given Sodium Chloride (0.9 % Sodium Chloride 10 Ml Syringe) 10 ml IV Q8 [facility] Last Admin: 08/05/22 20:58 Dose: 10 ml Trazodone HCl (Trazodone Hcl 50 Mg Tablet) 50 mg PO [facility] PRN PRN Reason: Agitation A/P Assessment and plan (1) Fall from ground level: Status: Acute (2) Dehiscence of wound: Status: Acute (3) Decubitus ulcer of sacral region, stage 1: Status: Acute (4) Profound developmental delay: Status: Chronic (5) Prosthetic joint infection: Status: Acute Narrative A/P Narrative: #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 The biofilm can be quite fastidious and difficult to eradicate. -Unlikely via hematogenous spread. The patient had his alex in place for nearly 2 months and developed purulent drainage. There may have been contiguous spread -He underwent joint washout with antibiotic bead placement. Orthopedic surgery believes that he would not survive the staged second surgery to remove the cemen miah stem. -In terms of antibiotic therapy, rifampin is required for the fastidious biofilm however this has a severe interaction with his antiepileptic therapy as he is on phenytoin. We will continue MRSA coverage with vancomycin and he will be placed on cefepime as well. -We will follow-up closely with wound care cultures -I have obtained ESR and CRP -Telemetry infectious disease consult may be obtained in the morning -The patient will require a goals of care discussion 08/06: Transitioned to hospice. Comfort care order set placed last night. Thank you for allowing me to participate in the care of this patient. I will continue to follow along. Please do not hesitate to call with any questions or concerns. Time Spent With Patient Time: Total time spent is greater than 50% in coordination of care (as documented) at patient's floor/unit and/or counseling patient: QUALITY VTE Deep Vein Thrombosis/Pulmonary Embolism Present on Admission: No
[2022-08-06] MEDS: 0.9 % SODIUM CHLORIDE 1,000 ML IV SCH ×2 (09:34→16:55)
[2022-08-06] MEDS: CARBOXYMETHYLCELLULOSE SODIUM 1 EACH DROPER.GEL OP SCH ×4 (09:35→21:40)
[2022-08-06] MEDS: MUPIROCIN OINT 2% 22GM TOPICAL SCH (09:36)
[2022-08-06] MEDS: Olopatadine 0.1 % drops OP SCH (09:36)
[2022-08-06] MEDS: DIVALPROEX SODIUM 250 MG TABLET PO SCH (21:39)
[2022-08-07] MEDS: Olopatadine 0.1 % drops OP SCH ×3 (03:26→20:13)
[2022-08-07] MEDS: QUEtiapine 25 MG TABLET PO SCH ×2 (03:43→20:11)
[2022-08-07] MEDS: SENNOSIDES 1 TABLET PO SCH ×2 (03:44→20:12)
[2022-08-07] MEDS: PRAZOSIN 1 MG CAPSULE PO SCH ×2 (03:44→20:10)
[2022-08-07] MEDS: 0.9 % SODIUM CHLORIDE 1,000 ML IV SCH ×3 (03:46→20:13)
[2022-08-07] MEDS: 0.9 % SODIUM CHLORIDE 10 ML SYRINGE IV SCH ×7 (06:05→22:21)
[2022-08-07] MEDS: PHENYTOIN SOD 100 MG CAPSULE PO SCH ×2 (10:27→20:11)
[2022-08-07] MEDS: CARBOXYMETHYLCELLULOSE SODIUM 1 EACH DROPER.GEL OP SCH ×4 (10:28→20:06)
[2022-08-07] MEDS: DOCUSATE SODIUM 100 MG CAPSULE PO SCH ×2 (11:34→20:11)
[2022-08-07] MEDS: OMEPRAZOLE 20 MG CAPSULE PO SCH (11:40)
[2022-08-07] MEDS: LEVOTHYROXINE 25 MCG TABLET PO SCH (11:40)
[2022-08-07] MEDS: LORazepam 0.5 MG TABLET PO SCH ×2 (11:41→20:06)
[2022-08-07] MEDS: SERTRALINE 100 MG TABLET PO SCH (11:41)
[2022-08-07] MEDS: ZIPRASIDONE 20 MG PO SCH ×2 (12:01→20:06)
[2022-08-07] MEDS: HYDROcodone/APAP 5/325MG TABLET PO PRN (12:13)
--- NOTE | 2022-08-07 12:38 | Internal Med Progress Note ---
SUBJECTIVE Subjective Patient information: Note initiated : 08/07/22 at 12:36 pm Service Date, if different from initiated Date: [] Patient: Guilherme Yepez 81 y/o M admitted on 08/05/22 for Left Hip Irrigation & Debridement with Head Ball. Chief Complaint: [] Principal diagnosis: Prosthetic joint infection Interval history: 08/07: Comfort care only. Pending hospice placement Constitutional Vitals: Vital Signs Temp Pulse Resp BP Pulse Ox O2 Del Method O2 Flow Rate 36.8 C 86 26 H 116/57 99 Room Air 0 08/07/22 07:54 08/07/22 07:54 08/07/22 07:54 08/07/22 07:54 08/07/22 08:00 08/07/22 08:00 08/05/22 11:36 Period Temp Pulse Resp BP Sys/Oliveros Pulse Ox O2 Del Method O2 Flow Rate Last 24 Hr 36.2 C-36.8 C 71-86 18-26 116-147/57-74 96-99 Room Air-Room Air Intake and Output 08/07/22 08/07/22 08/07/22 03:59 11:59 19:59 Intake Total 236 Output Total 850 Balance -850 236 Weight 68.447 kg Intake & Output: Intake & Output 08/07/22 08/07/22 08/07/22 03:59 11:59 19:59 Intake Total 236 Output Total 850 Balance -850 236 Weight 68.447 kg Intake: Oral 236 Output: Urine Catheter Amount 850 Other: Meal Breakfast Lunch Percent of Meal Consumed Refused 100% Feeding Ability Total Assistance Urine Appearance Sediment Straight Cloudy Sediment Urine Color Bright Yellow Straight Yellow Bright Yellow Urine Odor Normal Stool Size Small Stool Color Brown Stool Consistency Loose General appearance: no acute distress Head Head exam: Present atraumatic and normal inspection Eye Eye exam: Present normal appearance ENT ENT exam: Present mucous membranes moist, normal exam and normal external ear exam Neck Neck exam: Present normal inspection Respiratory Respiratory exam: Present normal respiratory exam Cardiovascular Cardiovascular exam: Present normal rate and rhythm GI/Abdominal GI/Abdominal exam: Present normal bowel sounds Extremities Exam Extremities exam: Present tenderness; Absent normal inspection Additional comments: wound dehiscence Back Exam Back exam: Present normal inspection Neurological Exam Neurological exam: Present alert and altered Skin Skin exam: Present warm; Absent intact Additional comments: wound dehiscence OBJ DATA Labs 08/05/22 11:14 08/05/22 11:14 Labs: Abnormal Lab Results 08/05/22 08/05/22 08/05/22 13:37 13:37 11:14 WBC RBC Hgb Hct POC Hct MCHC Neut % (Auto) Lymph % (Auto) Lymph # (Auto) Absolute Neutrophils ESR 52 H POC PT POC INR Anion Gap 7.0 L POC BUN Glucose 115 H POC Glucose POC WB Ioniz Calcium AST 88 H ALT 50 H C-Reactive Protein 9.90 H 8.40 H Total Protein 5.7 L Albumin 2.7 L Albumin/Globulin Ratio 0.9 L 08/05/22 08/05/22 08/05/22 11:14 06:33 06:30 WBC 13.4 H RBC 3.26 L Hgb 9.8 L Hct 31.9 L POC Hct 34.0 L MCHC 30.7 L Neut % (Auto) 89.1 H Lymph % (Auto) 4.8 L Lymph # (Auto) 0.65 L Absolute Neutrophils 11.97 H ESR 37 H POC PT 16.8 H POC INR 1.4 H Anion Gap POC BUN 24 H Glucose POC Glucose 117 H POC WB Ioniz Calcium 1.11 L AST ALT C-Reactive Protein Total Protein Albumin Albumin/Globulin Ratio 08/05/22 06:28 WBC 11.6 H RBC 3.69 L Hgb 11.2 L Hct 35.5 L POC Hct MCHC Neut % (Auto) 83.6 H Lymph % (Auto) 8.2 L Lymph # (Auto) 0.95 L Absolute Neutrophils 9.68 H ESR POC PT POC INR Anion Gap POC BUN Glucose POC Glucose POC WB Ioniz Calcium AST ALT C-Reactive Protein Total Protein Albumin Albumin/Globulin Ratio Meds: Medications Acetaminophen (Acetaminophen 325 Mg Tablet) 325 mg PO BIDP PRN PRN Reason: pain Last Admin: 08/07/22 11:42 Dose: 325 mg Hydrocodone Bitart/Acetaminophen (Hydrocodone/Apap 5/325mg Tablet) 0 tab PO Q4HP PRN; Protocol PRN Reason: Per Pain Protocol Last Admin: 08/07/22 12:13 Dose: 1 tab Artificial Tears (Carboxymethylcellulose Sodium 1 Each Droper.Gel) 2 each OP QID [facility] Last Admin: 08/07/22 10:28 Dose: 1 each Bisacodyl (Bisacodyl 10 Mg Supp.Rect) 10 mg NE Q2-3DAYS PRN PRN Reason: Constipation Divalproex Sodium (Divalproex Sodium 250 Mg Tablet) 500 mg PO HS [facility] Last Admin: 08/06/22 21:39 Dose: 500 mg Docusate Sodium (Docusate Sodium 100 Mg Capsule) 100 mg PO BID [facility] Last Admin: 08/07/22 11:34 Dose: Not Given Heparin Sodium (Porcine) (Heparin Flush 10 Units/Ml 5 Ml Syringe) 2 ml IV Q12 [facility] Last Admin: 08/07/22 10:20 Dose: 2 ml Hydromorphone HCl (Hydromorphone 1 Mg/Ml Syringe) 0.5 - 2 mg IV Q2HP PRN; Protocol PRN Reason: Per Pain Protocol Sodium Chloride (Sodium Chloride 0.9%) 1,000 mls @ 100 mls/hr IV .Q10H [facility] Last Admin: 08/07/22 12:02 Dose: Not Given Levothyroxine Sodium (Levothyroxine 25 Mcg Tablet) 25 mcg PO QDAY [facility] Last Admin: 08/07/22 11:40 Dose: 25 mcg Lorazepam (Lorazepam 0.5 Mg Tablet) 0.25 mg PO BID [facility] Last Admin: 08/07/22 11:41 Dose: 0.25 mg Lorazepam (Lorazepam 0.5 Mg Tablet) 0.5 mg PO BIDP PRN PRN Reason: AXIENTY Lorazepam (Lorazepam 2 Mg/Ml Vial) 0 mg IV Q1HP PRN; Protocol PRN Reason: ANXIETY/SEDATION Morphine Sulfate (Morphine 4 Mg/Ml Vial) 0 mg IV Q1HP PRN; Protocol PRN Reason: Per Pain Protocol Last Admin: 08/06/22 17:41 Dose: 4 mg Mupirocin (Mupirocin Oint 2% 22gm) 1 dose TOPICAL QDAY [facility] Last Admin: 08/06/22 09:36 Dose: Not Given Ziprasidone 20mg 1 each PO BID [facility] Last Admin: 08/07/22 12:01 Dose: 1 each Omeprazole (Omeprazole 20 Mg Capsule) [facility] Last Admin: 08/07/22 11:40 Dose: 20 mg Olopatadine 0.1 % (Drops) 2 dose OP BID [facility] Last Admin: 08/07/22 10:30 Dose: Not Given Phenytoin Sodium (Phenytoin Sod 100 Mg Capsule) [facility] [place] Last Admin: 08/07/22 10:27 Dose: 100 mg Phenytoin Sodium (Phenytoin Sod 100 Mg Capsule) 200 [address] [facility] Last Admin: 08/06/22 22:09 Dose: 200 mg Polyethylene Glycol (Polyethylene Glycol 3350 17 Gm Packet) 17 gm PO DAILYP PRN PRN Reason: Constipation Prazosin HCl (Prazosin 1 Mg Capsule) [facility] Last Admin: 08/07/22 03:44 Dose: 1 mg Quetiapine Fumarate (Quetiapine 25 Mg Tablet) [facility] Last Admin: 08/07/22 03:43 Dose: Not Given Senna (Sennosides 1 Tablet) 2 tab PO [facility] Last Admin: 08/07/22 03:44 Dose: Not Given Sertraline HCl (Sertraline 100 Mg Tablet) 150 mg PO [facility] Last Admin: 08/07/22 11:41 Dose: 150 mg Sodium Biphosphate/Sodium Phosphate (Fleets Adult Enema) 1 dose NE Q3-4DAYS PRN PRN Reason: Constipation Sodium Chloride (0.9 % Sodium Chloride 10 Ml Syringe) 10 ml IV Q8 [facility] Last Admin: 08/07/22 06:05 Dose: 10 ml Sodium Chloride (0.9 % Sodium Chloride 10 Ml Syringe) 10 ml IV Q8 [facility] Last Admin: 08/07/22 06:05 Dose: 10 ml Trazodone HCl (Trazodone Hcl 50 Mg Tablet) 50 mg PO [facility] PRN PRN Reason: Agitation A/P Assessment and plan (1) Prosthetic joint infection: Status: Acute (2) Dehiscence of wound: Status: Acute (3) Alzheimer's dementia with behavioral disturbance: Status: Acute Narrative A/P Narrative: Comfort care only. Pending hospice placement Time Spent With Patient Time: Total time spent is greater than 50% in coordination of care (as documented) at patient's floor/unit and/or counseling patient: Subsequent: Total time with patient: 25 - 34 minutes QUALITY VTE Deep Vein Thrombosis/Pulmonary Embolism Present on Admission: No
[2022-08-07] MEDS: MUPIROCIN OINT 2% 22GM TOPICAL SCH (13:51)
[2022-08-07] MEDS: LORazepam 2 MG/ML VIAL IV PRN (14:32)
[2022-08-07] MEDS: morphine 4 MG/ML VIAL IV PRN ×2 (14:33→18:58)
[2022-08-07] MEDS: DIVALPROEX SODIUM 250 MG TABLET PO SCH (20:07)
[2022-08-08] MEDS: morphine 4 MG/ML VIAL IV PRN ×4 (02:33→23:20)
[2022-08-08] MEDS: 0.9 % SODIUM CHLORIDE 10 ML SYRINGE IV SCH ×6 (04:18→22:29)
[2022-08-08] MEDS: MUPIROCIN OINT 2% 22GM TOPICAL SCH (08:08)
[2022-08-08] MEDS: LORazepam 0.5 MG TABLET PO SCH ×2 (08:09→22:17)
[2022-08-08] MEDS: PHENYTOIN SOD 100 MG CAPSULE PO SCH ×2 (08:09→22:17)
[2022-08-08] MEDS: OMEPRAZOLE 20 MG CAPSULE PO SCH (08:09)
[2022-08-08] MEDS: ZIPRASIDONE 20 MG PO SCH ×2 (08:10→23:27)
[2022-08-08] MEDS: LEVOTHYROXINE 25 MCG TABLET PO SCH (08:10)
[2022-08-08] MEDS: DOCUSATE SODIUM 100 MG CAPSULE PO SCH ×2 (08:10→22:17)
[2022-08-08] MEDS: CARBOXYMETHYLCELLULOSE SODIUM 1 EACH DROPER.GEL OP SCH ×4 (08:11→22:14)
[2022-08-08] MEDS: SERTRALINE 100 MG TABLET PO SCH (08:11)
[2022-08-08] MEDS: Olopatadine 0.1 % drops OP SCH ×2 (08:20→20:55)
--- NOTE | 2022-08-08 08:58 | Operative Note ---
DATE OF OPERATION: 08/05/2022 PREOPERATIVE DIAGNOSIS: Infected left hip hemiarthroplasty. POSTOPERATIVE DIAGNOSIS: Infected left hip hemiarthroplasty. PROCEDURE PERFORMED: Irrigation and debridement of infected left hip hemiarthroplasty with revision of the femoral component, removing the head ball and neck spacer with replacement of a new head ball and neck spacer. SURGEON: Chito Castillo M.D. FOREPART RASPER: Lena Tovar R.N. DRAINS: None. SPECIMENS: Culture and sensitivity x2 as well as removed the femoral head and spacer. ESTIMATED BLOOD LOSS: 150 mL. COMPLICATIONS: None. POSTOPERATIVE CONDITION: Fair. INDICATIONS FOR SURGERY: This is an 81-year-old male with profound dementia and lifelong severe developmental delay who broke his hip approximately 2-1/2 months ago. According to the power of consulting psychologist, they wanted him treated operatively so he was treated with a left hip hemiarthroplasty. For some reason, the facility never brought him back for postoperative followup, and he showed up over 2 months out from surgery with alex still in and started draining pus out of the hip and increased pain about 2-1/2 months out. FINDINGS AT SURGERY: There was open, draining sinus down to the prosthesis. We did have a discussion with his sister who has power of consulting psychologist discussing that definitive treatment of 2-stage treatment is highly unlikely he would survive this and so we discussed just washing out the hip and putting him on chronic suppressive antibiotics. She agreed with this and consent had been signed after discussion of risks and benefits of surgery. Risks including, but not limited to, bleeding; continued infection; injury to nerves, blood vessels, other surrounding structures; anesthetic risks; heart attack, stroke, or ; DVT and pulmonary embolus risks; and the possibility of needing further surgeries. She understood and wished us to proceed. Correct operative site was marked and then patient was taken to the operating room. General anesthesia was induced. He was carefully positioned in the right lateral decubitus position and the left hip and leg were carefully prepped and draped in normal sterile fashion. A timeout was performed verifying patient name, operative site, and plan. Ioban skin drape was used to cover all skin surfaces and his previous incision was used with a scalpel through skin and subcutaneous tissue. Once in the superficial layer, I took a culture swab labeled as superficial. We continued through the IT band tracking the wound, and it did track all the way down to the prosthesis where a second culture swab was taken. The hip was dislocated and the head ball was disengaged with a drift punch with the spacer. I then copiously irrigated and then used a curette as well as rongeur to try and debride away any biofilm. Once we felt we had done an adequate debridement, I then irrigated 50% Betadine solution into the joint and let this sit for several minutes. I then copiously irrigated 9000 mL of saline with pulse lavage. Once this was completed, I then opened and impacted a new 0 spacer with 50 unipolar head onto the stem. The hip was reduced. We then had been mixed antibiotic beads on the back table with vancomycin and tobramycin. This was then dumped into the joint. I also dumped vancomycin powder into the joint. We then had really no capsule or external rotators to repair. I did try to place a posterior capsule repair stitch with PDS, which got marginal bite. I then used a running looped Maxon, two of them to close the IT band. I sprinkled the remaining vancomycin powder in the superficial subcutaneous and then 2-0 Monocryl was used for subcutaneous closure and alex for skin. He was placed in an abductor wedge and patient was awakened, extubated, and transferred to recovery in fair condition. BJB:rell Job ID: [id number] Doc ID: [id number] Chito Castillo MD
[2022-08-08] MEDS: 0.9 % SODIUM CHLORIDE 1,000 ML IV SCH (11:49)
--- NOTE | 2022-08-08 12:04 | Internal Med Progress Note ---
SUBJECTIVE Subjective Patient information: Note initiated : 08/08/22 at 12:02 pm Service Date, if different from initiated Date: [] Patient: Guilherme Yepez 81 y/o M admitted on 08/05/22 for Left Hip Irrigation & Debridement with Head Ball. Chief Complaint: [] Principal diagnosis: Prosthetic joint infection Interval history: 08/07: Comfort care only. Pending hospice placement 08/08: There was no major overnight events. Continue comfort care measures only. Pending hospice placement. Constitutional Vitals: Vital Signs Temp Pulse Resp BP Pulse Ox O2 Del Method O2 Flow Rate 35.3 C L 82 16 130/67 96 Room Air 0 08/08/22 07:59 08/08/22 07:59 08/08/22 07:59 08/08/22 07:59 08/08/22 07:59 08/08/22 07:59 08/05/22 11:36 Period Temp Pulse Resp BP Sys/Oliveros Pulse Ox O2 Del Method O2 Flow Rate Last 24 Hr 35.3 C-36.8 C 71-82 16-20 130-150/67-73 95-96 Room Air-Room Air Intake and Output 08/08/22 08/08/22 08/08/22 03:59 11:59 19:59 Intake Total 120 Output Total 400 Balance -280 Weight 67.755 kg Intake & Output: Intake & Output 08/08/22 08/08/22 08/08/22 03:59 11:59 19:59 Intake Total 120 Output Total 400 Balance -280 Weight 67.755 kg Intake: Oral 120 Output: Urine Catheter Amount 400 Other: Urine Appearance Uretheral (Winslow) Cloudy Urine Color Dark Yellow Uretheral (Winslow) Dark Yellow Urine Odor Normal General appearance: average body habitus, cooperative and no acute distress Head Head exam: Present atraumatic and normal inspection Eye Eye exam: Present normal appearance ENT ENT exam: Present mucous membranes moist, normal exam and normal external ear exam Neck Neck exam: Present normal inspection Respiratory Respiratory exam: Present normal respiratory exam Cardiovascular Cardiovascular exam: Present normal rate and rhythm GI/Abdominal GI/Abdominal exam: Present normal bowel sounds Extremities Exam Extremities exam: Present tenderness; Absent normal inspection Additional comments: wound dehiscence Back Exam Back exam: Present normal inspection Neurological Exam Neurological exam: Present alert and oriented X3 Skin Skin exam: Present warm; Absent intact Additional comments: wound dehiscence OBJ DATA Labs 08/05/22 11:14 08/05/22 11:14 Labs: Abnormal Lab Results 08/05/22 08/05/22 08/05/22 13:37 13:37 11:14 ESR 52 H Anion Gap 7.0 L Glucose 115 H AST 88 H ALT 50 H C-Reactive Protein 9.90 H 8.40 H Total Protein 5.7 L Albumin 2.7 L Albumin/Globulin Ratio 0.9 L Meds: Medications Acetaminophen (Acetaminophen 325 Mg Tablet) 325 mg PO BIDP PRN PRN Reason: pain Last Admin: 08/07/22 11:42 Dose: 325 mg Hydrocodone Bitart/Acetaminophen (Hydrocodone/Apap 5/325mg Tablet) 0 tab PO Q4HP PRN; Protocol PRN Reason: Per Pain Protocol Last Admin: 08/07/22 12:13 Dose: 1 tab Artificial Tears (Carboxymethylcellulose Sodium 1 Each Droper.Gel) 2 each OP QID [facility] Last Admin: 08/08/22 08:11 Dose: 2 each Bisacodyl (Bisacodyl 10 Mg Supp.Rect) 10 mg LA Q2-3DAYS PRN PRN Reason: Constipation Divalproex Sodium (Divalproex Sodium 250 Mg Tablet) 500 mg PO HS [facility] Last Admin: 08/07/22 20:07 Dose: 500 mg Docusate Sodium (Docusate Sodium 100 Mg Capsule) 100 mg PO BID [facility] Last Admin: 08/08/22 08:10 Dose: 100 mg Heparin Sodium (Porcine) (Heparin Flush 10 Units/Ml 5 Ml Syringe) 2 ml IV Q12 [facility] Last Admin: 08/08/22 08:10 Dose: 2 ml Hydromorphone HCl (Hydromorphone 1 Mg/Ml Syringe) 0.5 - 2 mg IV Q2HP PRN; Protocol PRN Reason: Per Pain Protocol Sodium Chloride (Sodium Chloride 0.9%) 1,000 mls @ 100 mls/hr IV .Q10H [facility] Last Admin: 08/08/22 11:49 Dose: Not Given Levothyroxine Sodium (Levothyroxine 25 Mcg Tablet) 25 mcg PO QDAY [facility] Last Admin: 08/08/22 08:10 Dose: 25 mcg Lorazepam (Lorazepam 0.5 Mg Tablet) 0.25 mg PO BID [facility] Last Admin: 08/08/22 08:09 Dose: 0.25 mg Lorazepam (Lorazepam 0.5 Mg Tablet) 0.5 mg PO BIDP PRN PRN Reason: AXIENTY Lorazepam (Lorazepam 2 Mg/Ml Vial) 0 mg IV Q1HP PRN; Protocol PRN Reason: ANXIETY/SEDATION Last Admin: 08/07/22 14:32 Dose: 1 mg Morphine Sulfate (Morphine 4 Mg/Ml Vial) 0 mg IV Q1HP PRN; Protocol PRN Reason: Per Pain Protocol Last Admin: 08/08/22 04:30 Dose: 4 mg Mupirocin (Mupirocin Oint 2% 22gm) 1 dose TOPICAL QDAY [facility] Last Admin: 08/08/22 08:08 Dose: 1 dose Ziprasidone 20mg 1 each PO BID [facility] Last Admin: 08/08/22 08:10 Dose: 1 each Omeprazole (Om[facility]ole 20 Mg Capsule) [facility] Admin: 08/08/22 08:09 Dose: 20 mg Olopatadine 0.1 % (Drops) 2 dose OP BID [facility] Last Admin: 08/08/22 08:20 Dose: Not Given Phenytoin Sodium (Phenytoin Sod 100 Mg Capsule) [facility] Admin: 08/08/22 08:09 Dose: 100 mg Phenytoin Sodium (Phenytoin Sod 100 Mg Capsule) 200 mg PO [facility] Last Admin: 08/07/22 20:11 Dose: 200 mg Polyethylene Glycol (Polyethylene Glycol 3350 17 Gm Packet) 17 gm PO DAILYP PRN PRN Reason: Constipation Prazosin HCl (Prazosin 1 Mg Capsule) 1 mg PO QHS [facility] Last Admin: 08/07/22 20:10 Dose: 1 mg Quetiapine Fumarate ([facility]apine 25 Mg Tablet) [facility] Admin: 08/07/22 20:11 Dose: 25 mg Senna (Sennosides 1 Tablet) 2 tab PO [facility] Last Admin: 08/07/22 20:12 Dose: Not Given Sertraline HCl (Sertraline 100 Mg Tablet) [facility] Admin: 08/08/22 08:11 Dose: 150 mg Sodium Biphosphate/Sodium Phosphate (Fleets Adult Enema) 1 dose LA Q3-4DAYS PRN PRN Reason: Constipation Sodium Chloride (0.9 % Sodium Chloride 10 Ml Syringe) 10 ml IV Q8 [facility] Last Admin: 08/08/22 04:18 Dose: 10 ml Sodium Chloride (0.9 % Sodium Chloride 10 Ml Syringe) 10 ml IV Q8 [facility] Last Admin: 08/08/22 04:18 Dose: 10 ml Trazodone HCl (Trazodone Hcl 50 Mg Tablet) 50 mg PO HSP PRN PRN Reason: Agitation A/P Assessment and plan (1) Prosthetic joint infection: Status: Acute (2) Dehiscence of wound: Status: Acute (3) Alzheimer's dementia with behavioral disturbance: Status: Acute Narrative A/P Narrative: Comfort care measures only. Pending hospice placement Time Spent With Patient Time: Total time spent is greater than 50% in coordination of care (as documented) at patient's floor/unit and/or counseling patient: Subsequent: Total time with patient: 25 - 34 minutes QUALITY VTE Deep Vein Thrombosis/Pulmonary Embolism Present on Admission: No
[2022-08-08] MEDS: HYDROcodone/APAP 5/325MG TABLET PO PRN (12:29)
[2022-08-08] MEDS: DIVALPROEX SODIUM 250 MG TABLET PO SCH (22:16)
[2022-08-08] MEDS: PRAZOSIN 1 MG CAPSULE PO SCH (22:17)
[2022-08-08] MEDS: QUEtiapine 25 MG TABLET PO SCH (22:17)
[2022-08-08] MEDS: SENNOSIDES 1 TABLET PO SCH (22:18)
[2022-08-08] MEDS: LORazepam 2 MG/ML VIAL IV PRN (23:18)
[2022-08-09] MEDS: morphine 4 MG/ML VIAL IV PRN (03:08)
[2022-08-09] MEDS: 0.9 % SODIUM CHLORIDE 10 ML SYRINGE IV SCH ×4 (04:52→20:41)
[2022-08-09] MEDS: LEVOTHYROXINE 25 MCG TABLET PO SCH (08:32)
[2022-08-09] MEDS: CARBOXYMETHYLCELLULOSE SODIUM 1 EACH DROPER.GEL OP SCH ×5 (08:32→20:40)
[2022-08-09] MEDS: SERTRALINE 100 MG TABLET PO SCH (08:32)
[2022-08-09] MEDS: DOCUSATE SODIUM 100 MG CAPSULE PO SCH ×2 (08:33→20:39)
[2022-08-09] MEDS: PHENYTOIN SOD 100 MG CAPSULE PO SCH ×2 (08:33→20:39)
[2022-08-09] MEDS: LORazepam 0.5 MG TABLET PO SCH ×2 (08:33→20:40)
[2022-08-09] MEDS: ZIPRASIDONE 20 MG PO SCH ×2 (08:33→20:50)
[2022-08-09] MEDS: MUPIROCIN OINT 2% 22GM TOPICAL SCH (08:33)
[2022-08-09] MEDS: OMEPRAZOLE 20 MG CAPSULE PO SCH (08:34)
[2022-08-09] MEDS: Olopatadine 0.1 % drops OP SCH ×2 (08:34→20:41)
--- NOTE | 2022-08-09 14:45 | Internal Med Progress Note ---
SUBJECTIVE Subjective Patient information: Note initiated : 08/09/22 at 2:44 pm Service Date, if different from initiated Date: [] Patient: Guilherme Yepez 81 y/o M admitted on 08/05/22 for Left Hip Irrigation & Debridement with Head Ball. Chief Complaint: [] Principal diagnosis: Prosthetic joint infection Interval history: 08/07: Comfort care only. Pending hospice placement 08/08: There was no major overnight events. Continue comfort care measures only. Pending hospice placement. 08/09: There was no major overnight events. Continue comfort care measures only. Pending hospice placement. Constitutional Vitals: Vital Signs Temp Pulse Resp BP Pulse Ox O2 Del Method O2 Flow Rate 36.8 C 92 H 20 130/68 96 Room Air 0 08/09/22 08:00 08/09/22 08:00 08/09/22 08:00 08/09/22 08:00 08/09/22 08:00 08/09/22 08:00 08/05/22 11:36 Period Temp Pulse Resp BP Sys/Oliveros Pulse Ox O2 Del Method O2 Flow Rate Last 24 Hr 36.8 C-37.2 C 92-105 20-24 130-131/64-68 93-96 Room Air-Room Air Intake and Output 08/09/22 08/09/22 08/09/22 03:59 11:59 19:59 Intake Total 120 240 Output Total 1 901 Balance 119 -661 Intake & Output: Intake & Output 08/09/22 08/09/22 08/09/22 03:59 11:59 19:59 Intake Total 120 240 Output Total 1 901 Balance 119 -661 Intake: Oral 120 240 Output: Urine Catheter Amount 900 Uretheral (Winslow) 475 # of times incontinent of urine 1 1 Other: Meal Breakfast Percent of Meal Consumed 100% Feeding Ability Total Assistance Urine Appearance Clear Uretheral (Winslow) Cloudy Cloudy Urine Color Yellow Uretheral (Winslow) Yellow Yellow Urine Odor Normal Uretheral (Winslow) Normal # Voids 1 1 Head Head exam: Present atraumatic and normal inspection Eye Eye exam: Present normal appearance ENT ENT exam: Present mucous membranes moist, normal exam and normal external ear exam Neck Neck exam: Present normal inspection Respiratory Respiratory exam: Present normal respiratory exam Cardiovascular Cardiovascular exam: Present normal rate and rhythm GI/Abdominal GI/Abdominal exam: Present normal bowel sounds Extremities Exam Extremities exam: Present tenderness; Absent full ROM or normal inspection Additional comments: Wound dehiscence Back Exam Back exam: Present normal inspection Neurological Exam Neurological exam: Present alert and oriented X3 Skin Skin exam: Present intact and warm OBJ DATA Labs 08/05/22 11:14 08/05/22 11:14 Meds: Medications Acetaminophen (Acetaminophen 325 Mg Tablet) 325 mg PO BIDP PRN PRN Reason: pain Last Admin: 08/07/22 11:42 Dose: 325 mg Hydrocodone Bitart/Acetaminophen (Hydrocodone/Apap 5/325mg Tablet) 0 tab PO Q4HP PRN; Protocol PRN Reason: Per Pain Protocol Last Admin: 08/08/22 12:29 Dose: 1 tab Artificial Tears (Carboxymethylcellulose Sodium 1 Each Droper.Gel) 2 each OP QID [facility] Last Admin: 08/09/22 12:15 Dose: 2 each Bisacodyl (Bisacodyl 10 Mg Supp.Rect) 10 mg MO Q2-3DAYS PRN PRN Reason: Constipation Divalproex Sodium (Divalproex Sodium 250 Mg Tablet) 500 mg PO HS [facility] Last Admin: 08/08/22 22:16 Dose: 500 mg Docusate Sodium (Docusate Sodium 100 Mg Capsule) 100 mg PO BID [facility] Last Admin: 08/09/22 08:33 Dose: 100 mg Hydromorphone HCl (Hydromorphone 1 Mg/Ml Syringe) 0.5 - 2 mg IV Q2HP PRN; Protocol PRN Reason: Per Pain Protocol Levothyroxine Sodium (Levothyroxine 25 Mcg Tablet) 25 mcg PO QDAY [facility] Last Admin: 08/09/22 08:32 Dose: 25 mcg Lorazepam (Lorazepam 0.5 Mg Tablet) 0.25 mg PO BID [facility] Last Admin: 08/09/22 08:33 Dose: 0.25 mg Lorazepam (Lorazepam 0.5 Mg Tablet) 0.5 mg PO BIDP PRN PRN Reason: AXIENTY Lorazepam (Lorazepam 2 Mg/Ml Vial) 0 mg IV Q1HP PRN; Protocol PRN Reason: ANXIETY/SEDATION Last Admin: 08/08/22 23:18 Dose: 1 mg Morphine Sulfate (Morphine 4 Mg/Ml Vial) 0 mg IV Q1HP PRN; Protocol PRN Reason: Per Pain Protocol Last Admin: 08/09/22 03:08 Dose: 4 mg Mupirocin (Mupirocin Oint 2% 22gm) 1 dose TOPICAL QDAY [facility] Last Admin: 08/09/22 08:33 Dose: 1 dose Ziprasidone 20mg 1 each PO BID [facility] Last Admin: 08/09/22 08:33 Dose: 1 each Omeprazole (Omeprazole 20 Mg Capsule) 20 mg PO [facility] Last Admin: 08/09/22 08:34 Dose: 20 mg Olopatadine 0.1 % (Drops) 2 dose OP BID [facility] Last Admin: 08/09/22 08:34 Dose: Not Given Phenytoin Sodium (Phenytoin Sod 100 Mg Capsule) 100 mg PO [facility] Last Admin: 08/09/22 08:33 Dose: 100 mg Phenytoin Sodium (Phenytoin Sod 100 Mg Capsule) 200 mg PO [facility] Last Admin: 08/08/22 22:17 Dose: 200 mg Polyethylene Glycol (Polyethylene Glycol 3350 17 Gm Packet) 17 gm PO DAILYP PRN PRN Reason: Constipation [facility]osin HCl ([facility] 1 Mg [facility]apsule) [facility] Admin: 08/08/22 22:17 Dose: 1 mg Quetiapine Fumarate (Qu[facility]apine 25 Mg Tablet) [facility] Last Admin: 08/08/22 22:17 Dose: 25 mg Senna (Sennosides 1 Tablet) 2 tab PO [facility] Last Admin: 08/08/22 22:18 Dose: Not Given Sertraline HCl (Sertraline 100 Mg Tablet) 150 mg PO [facility] Last Admin: 08/09/22 08:32 Dose: 150 mg Sodium Biphosphate/Sodium Phosphate (Fleets Adult Enema) 1 dose MO Q3-4DAYS PRN PRN Reason: Constipation Sodium Chloride (0.9 % Sodium Chloride 10 Ml Syringe) 10 ml IV Q8 [facility] Last Admin: 08/09/22 04:52 Dose: 10 ml Trazodone HCl (Trazodone Hcl 50 Mg Tablet) 50 mg PO HSP PRN PRN Reason: Agitation A/P Assessment and plan (1) Prosthetic joint infection: Status: Acute (2) Dehiscence of wound: Status: Acute (3) Alzheimer's dementia with behavioral disturbance: Status: Acute Narrative A/P Narrative: Comfort care measures only. Pending hospice placement Time Spent With Patient Time: Total time spent is greater than 50% in coordination of care (as documented) at patient's floor/unit and/or counseling patient: Subsequent: Total time with patient: 25 - 34 minutes QUALITY VTE Deep Vein Thrombosis/Pulmonary Embolism Present on Admission: No
[2022-08-09] MEDS: PRAZOSIN 1 MG CAPSULE PO SCH (20:39)
[2022-08-09] MEDS: DIVALPROEX SODIUM 250 MG TABLET PO SCH (20:39)
[2022-08-09] MEDS: QUEtiapine 25 MG TABLET PO SCH (20:40)
[2022-08-09] MEDS: SENNOSIDES 1 TABLET PO SCH (20:41)
[2022-08-10] MEDS: morphine 4 MG/ML VIAL IV PRN ×2 (01:15→10:35)
[2022-08-10] MEDS: 0.9 % SODIUM CHLORIDE 10 ML SYRINGE IV SCH ×2 (04:26→12:06)
[2022-08-10] MEDS: ZIPRASIDONE 20 MG PO SCH (09:01)
[2022-08-10] MEDS: LEVOTHYROXINE 25 MCG TABLET PO SCH (09:02)
[2022-08-10] MEDS: PHENYTOIN SOD 100 MG CAPSULE PO SCH (09:02)
[2022-08-10] MEDS: OMEPRAZOLE 20 MG CAPSULE PO SCH (09:02)
[2022-08-10] MEDS: SERTRALINE 100 MG TABLET PO SCH (09:02)
[2022-08-10] MEDS: LORazepam 0.5 MG TABLET PO SCH (09:03)
[2022-08-10] MEDS: Olopatadine 0.1 % drops OP SCH (09:03)
[2022-08-10] MEDS: DOCUSATE SODIUM 100 MG CAPSULE PO SCH (09:03)
[2022-08-10] MEDS: CARBOXYMETHYLCELLULOSE SODIUM 1 EACH DROPER.GEL OP SCH ×3 (09:04→12:06)
[2022-08-10] MEDS: HYDROcodone/APAP 5/325MG TABLET PO PRN (09:11)
[2022-08-10] MEDS: MUPIROCIN OINT 2% 22GM TOPICAL SCH ×2 (09:19→09:27)
--- NOTE | 2022-08-10 11:55 | Discharge Summary ---
Discharge Provider Provider IMPORTANT FOLLOW-UP INFORMATION FOR PCP: Patient information: Note initiated : 08/10/22 at 11:51 am Service Date, if different from initiated Date: [] Patient: Guilherme Yepez 81 y/o M admitted on 08/05/22 for Left Hip Irrigation & Debridement with Head Ball. Chief Complaint: [] Date of admission: 08/05/22 11:48 Discharge date: 08/10/22 Primary care physician: Daniel Hartman PA-C Attending physician on admission: Chito Castillo Consults: 08/05/22 Consult to Physician [CONS] Urgent Comment: Infected left hip hemiarthroplasty s/p I&D, Consulting Provider: Khris Cyr Reason For Exam: Physician to Consult Attending physician on discharge: Eugenio Calzada Pucarleen COURSE Hospital Course Hospital course: The patient has a complex past medical history significant for severe developmental delay, cognitive impairment, epilepsy, and recent fall in May resulting in a hip fracture. The patient underwent left hemiarthroplasty by orthopedic surgery however was lost to follow-up. His postoperative sutures remain in place for nearly 2 months. He had 2 follow-up appointments with his primary care physician recently. The patient has a financial power of state attorney however does not have a healthcare power of state attorney. Per social work, he was supposedly moved to [place] to a different facility however is now back at his previous adult family home. His daughter lives in [place] however previously declined making healthcare decisions for her father. The patient came in yesterday with purulent drainage and required a washout. The head ball was changed. Cultures intraoperatively performed. Antibiotic beads were placed. He still has cemented stem in place as orthopedic surgery believes that he would likely not survive a two-stage operative procedure. The hospitalist service has been consulted for antibiotic management. 08/07: Comfort care only. Pending hospice placement 08/08: There was no major overnight events. Continue comfort care measures only. Pending hospice placement. 08/09: There was no major overnight events. Continue comfort care measures only. Pending hospice placement. 08/10: Discharged to [facility] with palliative care PT OT. Discharge diagnosis: hip fracture, wound dehiscence, joint infection Time Spent with Patient Time attestation: Total time spent providing and/or coordinating discharge services: Time spent: Greater than 30 minutes EXAM Constitutional Vitals: Temp Pulse Resp BP Pulse Ox O2 Del Method O2 Flow Rate 36.4 C 84 20 111/63 96 Room Air 0 08/10/22 08:00 08/10/22 08:00 08/10/22 08:00 08/10/22 08:00 08/10/22 08:00 08/10/22 08:00 08/05/22 11:36 General appearance: cooperative and no acute distress Head Head exam: Present atraumatic and normocephalic Eye Eye exam: Present EOMI and PERRL ENT ENT exam: Present mucous membranes moist, normal exam and normal external ear exam Neck Neck exam: Present normal inspection; Absent lymphadenopathy, tenderness or thyromegaly Respiratory Respiratory exam: Absent accessory muscle use, respiratory distress or wheezes Cardiovascular Cardiovascular exam: Present normal rate and rhythm; Absent JVD GI/Abdominal GI/Abdominal exam: Present normal bowel sounds and soft; Absent organomegaly or tenderness Rectal Rectal exam: Present deferred Extremities Exam Extremities exam: Present full ROM, normal capillary refill and tenderness; Absent normal inspection Additional comments: Wound dehiscence Neurological Exam Neurological exam: Present alert, altered and CN II-XII intact; Absent motor sensory deficit Psychiatric Psychiatric exam: Present normal affect and normal mood; Absent anxious or depressed Skin Skin exam: Present dry; Absent intact Additional comments: Wound dehiscence Discharge Data Data Completed and Pending Labs on day of discharge: Preliminary micro results at discharge 08/05/22 08:55 Anaerobic Culture - Preliminary Hip - Left 08/05/22 08:55 Anaerobic Culture - Preliminary Hip - Left 08/05/22 13:43 Blood Culture - Preliminary Blood 08/05/22 13:37 Blood Culture - Preliminary Blood Discharge Plan Patient/Caregiver Discharge Instructions Activity: increase activity as tolerated Diet: Regular Diet Prescriptions: New phenytoin sodium extended [Dilantin Extended] 100 mg Capsule 200 mg PO HS Qty: 30 0RF Continued xyrzatqk-row-WO-lycopen-lutein [CertaVite Senior] 0.4-300-250 mg-mcg-mcg tablet See Rx Instructions .ROUTE .COMPLEX Qty: 31 11RF Dose Instruction: TAKE 1 TABLET BY MOUTH DAILY (8AM) Rx Instructions: TAKE 1 TABLET BY MOUTH DAILY (8AM) acetaminophen 325 mg tablet 325 mg PO BID PRN (Reason: pain) Qty: 60 4RF artificial tears(hypromellose) 0.5 % drops 2 drp OPHTHALMIC QID Qty: 30 4RF ferrous sulfate 325 mg (65 mg iron) tablet 325 mg PO QDAY Qty: 90 3RF ziprasidone HCl 20 mg capsule 20 mg PO BID Qty: 180 3RF Rx Instructions: give with food (meal/snack) memantine 5 mg tablet 5 mg PO BID Qty: 180 3RF levothyroxine 25 mcg tablet 25 mcg PO QDAY Qty: 90 3RF phenytoin sodium extended 100 mg capsule See Dose Instructions .ROUTE .COMPLEX Qty: 270 3RF Dose Instruction: Take 100mg in the morning and 200mg at bedtime Rx Instructions: Take 100mg in the morning and 200mg at bedtime omeprazole 20 mg capsule,delayed release(DR/EC) 20 mg PO QAM Qty: 90 3RF sertraline 100 mg tablet 150 mg PO QAM Qty: 135 3RF prazosin 1 mg capsule 1 mg PO QHS Qty: 90 3RF amlodipine 10 mg tablet See Rx Instructions .ROUTE .COMPLEX Qty: 90 3RF Dose Instruction: TAKE 1 TABLET BY MOUTH DAILY IN THE MORNING (8AM) Rx Instructions: TAKE 1 TABLET BY MOUTH DAILY IN THE MORNING (8AM) olopatadine 0.1 % drops 2 drp ophthalmic (eye) BID Qty: 5 5RF Rx Instructions: Instill 2 drops in affected eye twice daily divalproex 500 mg tablet,delayed release (DR/EC) 500 mg PO HS Qty: 30 11RF Dry Eye Relief 1-0.2-0.2 % drops 2 drp ophthalmic (eye) QID Qty: 30 4RF (DME) 4 post cane Qty: 1 0RF Rx Instructions: Use as needed dialy (DME) FWW with seat Qty: 1 0RF Dose Instruction: As directed Rx Instructions: As directed (DME) Handicap Placard Qty: 1 0RF Rx Instructions: As directed trazodone 50 mg tablet 50 mg PO QHS PRN (Reason: Agitation) quetiapine 25 mg tablet 25 mg PO QHS mupirocin 2 % ointment 1 applic topical QDAY Qty: 22 0RF hydrocodone-acetaminophen 5-325 mg tablet 1 tab PO TID Qty: 30 0RF lorazepam 0.5 mg tablet 0.25 mg PO BID Qty: 30 0RF lorazepam 0.5 mg tablet 0.5 mg PO BID PRN (Reason: AXIENTY) Qty: 20 0RF meloxicam 15 mg tablet 15 mg PO QDAY Follow Up Plan Follow up with: Chito Castillo MD [Physician] - 08/18/22 8:40 am Patient Disposition: Xfer SNF Rehab Potential: Good I certify that the patient requires SNF services: Yes Overall status at discharge: patient is not back to baseline Discharge Orders: Discharge Order (Routine); Ordered 08/10/22 Ordered By: Eugenio VANESSA VTE Deep Vein Thrombosis/Pulmonary Embolism Present on Admission: No
== END 2022-08-10 12:40 | DRG 467 ==
LOC: SUR 06:06 → MEDSUR 11:48
PROVIDERS: ADMIT Orthopaedic Surgery; ATTEND Orthopaedic Surgery